=== PATIENT | female | born 1960 | race Caucasian/White ===

== ENCOUNTER → 2016-12-17 | Outpatient (CLI) | payer OTHER ==
[~2016-12-17] MED LIST: CHOL20009 PO; CLON1TAB3 PO; HYDR-5688 PO; SERT-234 PO
== END | disposition home or self-care (01) ==
LOC: C.CPL 12:25
PROVIDERS: ATTEND Otolaryngology
DX: Z01.810 Encounter for preprocedural cardiovascular examination (principal)

== ENCOUNTER → 2017-01-02 | Day surgery (SDC) | payer OTHER ==
[2016-12-18 08:02] VITALS: Ht 172.7 cm; Wt 85.5 kg
[~2017-01-02] VITALS: Ht 172.7 cm; Wt 85.5 kg
[~2017-01-02] MED LIST changes: -CLON1TAB3 PO; -HYDR-5688 PO; -SERT-234 PO
== END | disposition home or self-care (01) ==
LOC: EDSTATUS 07:00 → C.PAT 13:43
PROVIDERS: ATTEND Otolaryngology
DX: H70.12 Chronic mastoiditis, left ear (principal)

== ENCOUNTER → 2017-01-17 | Outpatient (CLI) | payer OTHER ==
--- NOTE | 2017-01-17 14:57 | DIAGNOSTIC IMAGING REPORT ---
CHEST 2 VIEWS ROUTINE CLINICAL HISTORY: Chest pain Shortness of breath chest pain COMPARISON STUDY: 10/01/2016 FINDINGS: Mild chronic interstitial prominence. No focal infiltrates. Cardiac silhouette is unremarkable.. Diaphragms smooth. Costophrenic angles are sharp. IMPRESSION: No acute process. Mild chronic interstitial change. Electronically signed by: Geovani Markham M.D. 01/17/2017 2:55 PM Dictated Date/Time: 01/17/2017 2:55 PM
== END | disposition home or self-care (01) ==
LOC: C.RADPV 14:37
PROVIDERS: ATTEND Family Medicine
DX: R07.9 Chest pain, unspecified (principal); R06.02 Shortness of breath

== ENCOUNTER → 2017-09-10 | Outpatient (CLI) | payer OTHER | END | disposition home or self-care (01) | LOC: C.PATHSPEC 17:29 | PROVIDERS: ATTEND Surgery | DX: L72.0 Epidermal cyst (principal); D22.5 Melanocytic nevi of trunk ==

== ENCOUNTER → 2017-12-12 | Outpatient (CLI) | payer OTHER ==
--- NOTE | 2017-12-12 14:42 | DIAGNOSTIC IMAGING REPORT ---
LUMBAR SPINE W/O CONTRAST HISTORY: Pain POST LAMINECTOMY SYNDROME,LUMBAR DIS HERNIATION... TECHNIQUE: Multiplanar multisequence MRI of the lumbar spine was performed without the use of contrast. COMPARISON: None. FINDINGS: For the purpose of the report the L5-S1 disc space will be located on axial image 23 of 25. Signal characteristics the vertebral bodies are unremarkable. Findings of mild degenerative disc changes throughout. This is considered moderate at L5-S1. L1-L2: Minimal broad-based disc bulge. Neuroforamina are patent bilaterally. L2-L3: No significant central canal or neural foraminal narrowing. L3-L4: Minimal disc bulge. Minimal impact anterior thecal sac. L4-L5: No significant central canal or neural foraminal narrowing. L5-S1: Prior posterior left hemilaminotomy. Postoperative deformity of the thecal sac. Left central extradural defect grade moderate impact upon the left S1 nerve root and left anterior thecal sac. Absence of prior studies or contrast enhancement this may relate to recurrent disc herniation or residual postoperative scar. Moderate narrowing of the neuroforamina bilaterally. IMPRESSION: 1. Operative changes consistent with a left posterior hemilaminotomy at L5-S1. 2. Left central extradural defect felt to be secondary to residual or recurrent disc herniation versus a component of post procedural scar. 3. This creates moderate deformity of the left anterior thecal sac, moderate narrowing of the left as well as right neuroforamina, and mild displacement left S1 nerve root. 4. Multilevel minimal disc bulges throughout remainder of the lumbar region of doubtful clinical significance. The above report was generated using voice recognition software. It may contain grammatical, syntax or spelling errors. Electronically signed by: Geovani Markham M.D. 12/12/2017 2:41 PM Dictated Date/Time: 12/12/2017 2:33 PM
== END | disposition home or self-care (01) ==
LOC: C.MRI 13:44
PROVIDERS: ATTEND Internal Medicine
DX: M96.1 Postlaminectomy syndrome, not elsewhere classified (principal); M51.16 Intervertebral disc disorders with radiculopathy, lumbar region; G89.4 Chronic pain syndrome; M48.061 Spinal stenosis, lumbar region without neurogenic claudication

== ENCOUNTER 2018-06-07 14:34 | Inpatient (IN) | payer OTHER ==
[~2018-06-07] VITALS: Ht 172.7 cm; Wt 81.0 kg
[2018-06-07] MEDS ORDERED: FENTANYL CITRATE INJ 50 MCG/1 ML 2 ML VIAL IV STA ×2 (15:12→17:22)
[2018-06-07] MEDS ORDERED: ONDANSETRON INJ 2 MG/ML 2 ML VIAL IV STA (15:12)
--- NOTE | 2018-06-07 15:29 | EMERGENCY ROOM VISIT NOTE ---
History First contact with patient: 15:05 Chief Complaint: CHEST PAIN Stated Complaint: CHEST PAIN Nursing Triage Summary: pt reports she was doing leg lifts and started having substernal chest pain radiating to bilat shoulder pain after ems arrived pt started vomiting x4 pt also reports back pain but knows she needs surgery with rods and screws. has not scheduled yet needs mother to take care of her. pt was given 324 asa po by ems . medic gave her 3 sprays of nitro that brought her pain down to 4 and 4mg zofran iv for nausea. pt reports feeling nauseated and sob History of Present Illness The patient is a 57 year old female who presents to the Emergency Room the ambulance with complaints of "chest pain". The patient notes that earlier today around 10:45 AM she was exercising at home by performing leg lifts. She notes that she felt short of breath while doing this and then went to lay down and began with substernal chest pain. She states that it is been persistent until she called 911 while in the ambulance was given nitroglycerin which decreased her pain. She was also given aspirin, and Zofran. She knows she vomited [address] here in the ambulance. She points to the substernal region of her chest as location of pain that she rates as a 5/10. She has never had this before like this. She does note a history however of anxiety. She denies any heart history, history of blood clots. No diabetes, cholesterol, hypertension. She notes that she does smoke. No recent leg swelling or long trips. Review of Systems A complete 10-point Review of Systems was discussed with the patient, with pertinent positives and negatives listed in the History of Present Illness. All remaining Review of Systems questions can be considered negative unless otherwise specified. Past Medical/Surgical History Medical Problems: (1) Fibromyalgia (2) NSTEMI (non-ST elevated myocardial infarction) Family History Cancer Diabetes mellitus Heart disease Hypertension Kidney disease Kidney stones Social History Smoking Status: Current Every Day Smoker Current/Historical Medications No Active Prescriptions or Reported Meds Physical Exam Vital Signs Date Time Temp Pulse Resp B/P (MAP) Pulse Ox O2 Delivery O2 Flow Rate FiO2 06/07/18 18:21 148/93 06/07/18 18:16 168/99 06/07/18 18:11 154/102 06/07/18 18:06 157/69 06/07/18 18:01 144/95 06/07/18 18:00 74 17 97 Room Air 06/07/18 17:56 141/93 06/07/18 17:51 145/95 06/07/18 17:46 139/99 06/07/18 17:41 144/82 06/07/18 17:39 56 18 147/88 98 Room Air 06/07/18 17:21 64 18 140/84 96 Room Air 06/07/18 17:08 64 18 167/87 99 Room Air 06/07/18 16:40 63 18 157/87 96 Room Air 06/07/18 16:24 65 27 97 06/07/18 16:09 57 06/07/18 16:09 58 17 143/77 98 06/07/18 14:50 100 Room Air 06/07/18 14:44 36.5 63 22 145/88 100 Room Air Physical Exam VITAL SIGNS - Vital signs and nursing notes were reviewed. Stable. Afebrile. GENERAL -57-year-old female appearing her stated age who is in no acute distress. She does appear to be working to breathe. Communicates well with provider and answers questions appropriately. SKIN - Without rashes. No meningeal or petechial rash. HEAD - NC/AT. EYES - PERRL with EOMI bilaterally. Sclera anicteric. EARS - No deformities of external structures noted on gross examination bilaterally. NOSE - Midline and without cyanosis. No epistaxis or purulent drainage noted. MOUTH/OROPHARYNX - Without perioral cyanosis. NECK - Neck with FROM. Supple to palpation. No lymphadenopathy noted. No nuchal rigidity. LUNGS - Chest wall symmetric without accessory muscle use, intercostals retractions, or central cyanosis. Normal vesicular breath sounds CTA B/L. No wheezes, rales, or rhonchi appreciated. CARDIAC - RRR with S1/S2. No murmur, rubs, or gallops appreciated. There is no reproducible tenderness to palpation of the anterior chest. ABDOMEN - Abdominal contour normal without pulsations or visible masses. BS normoactive all four quadrants. No tenderness, palpable masses, hepatosplenomegaly, or ascites noted. EXTREMITIES - No clubbing or peripheral cyanosis. No pretibial edema present. NEUROLOGIC - Cranial nerves II through XII grossly intact. Sensory intact to light touch throughout. PSYCH - A&Ox3 and cooperates fully with examiner. Pt is very pleasant and interacts well with examiner. Medical Decision & Procedures ER Provider Diagnostic Interpretation: CHEST ONE VIEW PORTABLE CLINICAL HISTORY: Substernal chest pain, dyspnea. COMPARISON STUDY: Chest radiograph January 17, 2017. FINDINGS: Lung volumes are at the lower limits of normal. There is no pneumothorax or pleural effusion. There is no evidence for pulmonary edema or pneumonia. Cardiac size is normal. Mediastinal contours are normal. IMPRESSION: No acute cardiopulmonary findings. Electronically signed by: Aaron Charles M.D. 06/07/2018 3:40 PM Dictated Date/Time: 06/07/2018 3:39 PM Laboratory Results 06/07/18 15:45 Red Blood Count 4.92, Mean Corpuscular Volume 89.4, Mean Corpuscular Hemoglobin 31.5, Mean Corpuscular Hemoglobin Concent 35.2, Mean Platelet Volume 11.1, Neutrophils (%) (Auto) 79.7, Lymphocytes (%) (Auto) 12.0, Monocytes (%) (Auto) 7.7, Eosinophils (%) (Auto) 0.2, Basophils (%) (Auto) 0.1, Neutrophils # (Auto) 11.52, Lymphocytes # (Auto) 1.73, Monocytes # (Auto) 1.11, Eosinophils # (Auto) 0.03, Basophils # (Auto) 0.01 06/07/18 15:45 Test 06/07/18 15:45 White Blood Count 14.45 K/uL (4.8-10.8) Red Blood Count 4.92 M/uL (4.2-5.4) Hemoglobin 15.5 g/dL (12.0-16.0) Hematocrit 44.0 % (37-47) Mean Corpuscular Volume 89.4 fL (80-100) Mean Corpuscular Hemoglobin 31.5 pg (25-34) Mean Corpuscular Hemoglobin Concent 35.2 g/dl (32-36) Platelet Count 263 K/uL (130-400) Mean Platelet Volume 11.1 fL (7.4-10.4) Neutrophils (%) (Auto) 79.7 % Lymphocytes (%) (Auto) 12.0 % Monocytes (%) (Auto) 7.7 % Eosinophils (%) (Auto) 0.2 % Basophils (%) (Auto) 0.1 % Neutrophils # (Auto) 11.52 K/uL (1.4-6.5) Lymphocytes # (Auto) 1.73 K/uL (1.2-3.4) Monocytes # (Auto) 1.11 K/uL (0.11-0.59) Eosinophils # (Auto) 0.03 K/uL (0-0.5) Basophils # (Auto) 0.01 K/uL (0-0.2) RDW Standard Deviation 39.9 fL (36.4-46.3) RDW Coefficient of Variation 12.4 % (11.5-14.5) Immature Granulocyte % (Auto) 0.3 % Immature Granulocyte # (Auto) 0.05 K/uL (0.00-0.02) Prothrombin Time 9.7 SECONDS (9.0-12.0) Prothromb Time International Ratio 0.9 (0.9-1.1) Anion Gap 15.0 mmol/L (3-11) Est Creatinine Clear Calc Drug Dose 75.7 ml/min Estimated GFR () 77.1 Estimated GFR (Non- 66.5 BUN/Creatinine Ratio 11.3 (10-20) Calcium Level 9.3 mg/dl (8.5-10.1) Magnesium Level 1.6 mg/dl (1.8-2.4) Total Bilirubin 0.9 mg/dl (0.2-1) Aspartate Amino Transf (AST/SGOT) 27 U/L (15-37) Alanine Aminotransferase (ALT/SGPT) 42 U/L (12-78) Alkaline Phosphatase 99 U/L (45-117) Troponin I 0.857 ng/ml (0-0.045) Total Protein 7.4 gm/dl (6.4-8.2) Albumin 4.0 gm/dl (3.4-5.0) Globulin 3.4 gm/dl (2.5-4.0) Albumin/Globulin Ratio 1.2 (0.9-2) Lipase 109 U/L (73-393) Thyroid Stimulating Hormone (TSH) 1.050 uIu/ml (0.300-4.500) Medications Administered Medications (Trade) Dose Ordered Sig/Vasile Route Start Time Stop Time Status Last Admin Dose Admin Fentanyl Citrate (Fentanyl Inj) 50 mcg NOW STAT IV 06/07/18 15:12 06/07/18 15:15 DC 06/07/18 15:27 50 MCG Ondansetron HCl (Zofran Inj) 4 mg NOW STAT IV 06/07/18 15:12 06/07/18 15:15 DC 06/07/18 15:27 4 MG Metoprolol Tartrate (Lopressor Tab) 25 mg NOW STAT PO 06/07/18 16:46 06/07/18 16:49 DC 06/07/18 17:07 25 MG Nitroglycerin (Nitrostat Tab) 0.4 mg Q5M STAT SL 06/07/18 16:46 06/07/18 16:49 DC 06/07/18 17:07 0.4 MG Heparin Sodium/ Dextrose (Heparin 25,000 Unit/500ml D5W) 25,000 unit STK-MED ONCE .ROUTE 06/07/18 17:12 06/07/18 17:13 DC 06/07/18 17:26 25,000 UNIT Heparin Sodium (Porcine) (Heparin Sq 5000 Unit/0.5ml) 5,000 unit STK-MED ONCE .ROUTE 06/07/18 17:12 06/07/18 17:13 DC 06/07/18 17:24 5,000 UNIT Fentanyl Citrate (Fentanyl Inj) 50 mcg NOW STAT IV 06/07/18 17:22 06/07/18 17:23 DC 06/07/18 17:38 50 MCG Nitroglycerin (Nitroglycerin 2% Oint) 1 inch Q6H EXT 06/07/18 18:45 07/07/18 18:44 06/08/18 00:16 1 IN[facility] Medical Decision Patient was seen and evaluated as above in room D9. Review was performed of nursing notes and vital signs. After obtaining a thorough history and physical examination the above work up was performed. She presents to us today with chest pain. She received 324 of aspirin in route as well as 3 sprays of nitro which significantly improved her pain. She also received Zofran as she became nauseous and began vomiting. Her presentation is concerning for that for ACS. At that EKG was obtained and reveals normal sinus rhythm. Upon my evaluation she did note increase of her chest pressure therefore obtain another stat EKG. This was unchanged. Still normal sinus rhythm. No evidence of MO on this examination. I did give her fentanyl. She was reevaluated and noted her pain was down to a 1 out of 10. I was then called emergently with her troponin value. I discussed this with the attending, and then I talked to cardiology at 4:45 PM. I spoke with Dr. Conti. He recommended 25 mg of metoprolol p.o., nitroglycerin, as well as heparinization. He did indicate that if she was not pain free he was to be notified as she may need intervention. Patient was reevaluated and her pain was still a 1/10. I discussed this with the attending physician. Decision was made to give fentanyl and then begin nitro drip if she was not pain-free. She was reevaluated and her pain was completely resolved. I did not call heart alert given the EKG not show a STEMI, and her chest pain was resolved. Case was discussed with the hospitalist who will further evaluate and manage. Please refer to further documentation regarding her stay. Patient was informed upon her findings and educated upon her visit. Case discussed with the attending physician. In the evaluation and treatment of this patient the following differential diagnoses were entertained: MO, PE, dissection, among others. Impression Primary Impression: NSTEMI (non-ST elevated myocardial infarction) Additional Impression: Hypokalemia Departure Information Dispostion Admitted as an inpatient Condition FAIR Prescriptions No Active Prescriptions or Reported Meds Referrals Breana Argueta M.D. (PCP) Patient Instructions My [facility] Problem Qualifiers
--- NOTE | 2018-06-07 15:41 | DIAGNOSTIC IMAGING REPORT ---
CHEST ONE VIEW PORTABLE CLINICAL HISTORY: Substernal chest pain, dyspnea. COMPARISON STUDY: Chest radiograph January 17, 2017. FINDINGS: Lung volumes are at the lower limits of normal. There is no pneumothorax or pleural effusion. There is no evidence for pulmonary edema or pneumonia. Cardiac size is normal. Mediastinal contours are normal. IMPRESSION: No acute cardiopulmonary findings. Electronically signed by: Aaron Charles M.D. 06/07/2018 3:40 PM Dictated Date/Time: 06/07/2018 3:39 PM
[2018-06-07 16:05] LABS: BASO % 0.1 %; BASO ABS # 0.01 K/uL (0-0.2); EOS % 0.2 %; EOS ABS # 0.03 K/uL (0-0.5); HEMOGLOBIN 15.5 g/dL (12.0-16.0); IG# 0.05 K/uL (0.00-0.02); LYMPH ABS # 1.73 K/uL (1.2-3.4); MEAN CELL VOLUME 89.4 fL (80-100); MEAN CORPUSCULAR HEMOGLOBIN 31.5 pg (25-34); MEAN CORPUSCULAR HGB CONC 35.2 g/dl (32-36); MEAN PLATELET VOLUME 11.1 fL (7.4-10.4); MONO % 7.7 %; MONO ABS # 1.11 K/uL (0.11-0.59); NEUT % 79.7 %; NEUT ABS # 11.52 K/uL (1.4-6.5); PLATELET COUNT 263 K/uL (130-400); RED CELL DISTRIBUTION WIDTH CV 12.4 % (11.5-14.5); RED CELL DISTRIBUTION WIDTH SD 39.9 fL (36.4-46.3); WHITE BLOOD COUNT 14.45 K/uL (4.8-10.8)
[2018-06-07 16:16] LABS: INR 0.9 (0.9-1.1); PTT PATIENT 25.2 SECONDS (21.0-31.0)
[2018-06-07 16:30] LABS: CALCIUM 9.3 mg/dl (8.5-10.1); CREATININE 0.95 mg/dl (0.60-1.20); POTASSIUM 3.4 mmol/L (3.5-5.1); TOTAL PROTEIN 7.4 gm/dl (6.4-8.2)
[2018-06-07] MEDS ORDERED: METOPROLOL TARTRATE 25 MG TAB PO STA (16:46)
[2018-06-07] MEDS ORDERED: NITROGLYCERIN 0.4 MG SL PER TAB CHARGE SL STA (16:46)
[2018-06-07] MEDS ORDERED: HEPARIN 25000 UNIT/500 ML D5W ONE (17:12)
[2018-06-07] MEDS ORDERED: HEPARIN SOD 5000 UNIT/0.5 ML CARP ONE (17:12)
--- NOTE | 2018-06-07 17:47 | EMERGENCY ROOM VISIT NOTE ---
ED Visit Note First contact with patient: 15:05 I did evaluate and examine this patient myself. I did guide management for the patient. I agree with the PA's assessment as discussed. Please see the PAs dictation for further details. I did independently review the x-rays, twelve- lead EKG and blood work. Patient is presenting with chest pressure starting after exerting herself. She was given nitroglycerin in the ambulance with help her pain but she had continued pain here. She was given nitroglycerin and fentanyl IV after which her pain completely resolved. Her twelve-lead EKGs do not show evidence of STEMI. Her troponin, however, is elevated. The case was discussed with cardiology who recommended heparinization. The patient was placed on IV heparin and admitted to the hospital.
[2018-06-07] MEDS ORDERED: MAGNESIUM HYDROXIDE SUSP 30 ML UDC PO PRN (18:45)
[2018-06-07] MEDS ORDERED: NITROGLYCERIN 0.4 MG SL PER TAB CHARGE SL PRN (18:45)
[2018-06-07] MEDS ORDERED: ACETAMINOPHEN 325 MG TAB PO PRN (18:45)
[2018-06-07] MEDS ORDERED: POLYETHYLENE (MIRALAX) 17 GM PACK PO PRN (18:45)
[2018-06-07] MEDS ORDERED: ONDANSETRON INJ 2 MG/ML 2 ML VIAL IV PRN (18:45)
[2018-06-07] MEDS ORDERED: ALUMINUM/MAGNESIUM/SIMETH (MAALOX MAX) 30 ML UDC PO PRN (18:45)
[2018-06-07] MEDS ORDERED: MoRPHine SULFATE 4 MG/ML 1 ML CARP\\VIAL IV PRN (19:00)
[2018-06-07] MEDS ORDERED: POTASSIUM CHLR 20 MEQ / WTR 20 MEQ IV SCH (19:00)
[2018-06-07] MEDS ORDERED: POTASSIUM CHLORIDE 10 MEQ / 100ML WTR ONE (19:29)
[2018-06-07] MEDS: NITROGLYCERIN 2% OINTMENT 30GM TUBE EXT SCH (19:35)
--- NOTE | 2018-06-07 19:38 | Family Medicine Progress Note ---
Progress Note Date of Service Jun 07, 2018. Assessment and Plan For full attending attestation and plan, see resident H&P note from day of admission. In brief - 57 y/o female h/o cigarette smoking, fibromyalgia and chronic back pain with upcoming surgery presents for ~9 hours of left central back pain accompanied by diaphoresis and SOB following a brief exercise regimen (first in a while). Pain resolved with nitro, fentanyl and heparin drip and has not recurred. Endorses quitting smoking TODAY with hospital admission. No similar history, recent ASA use, palpitations etc. On examination, S1/S2 nl RRR no MCG. No peripheral edema appreciated. Lungs CTAB. CNII-XII grossly intact. No rashes, lesions. No reproducible MSK chest pain. Elevated troponin to ~0.8 with K 3.4 and Mg 1.6 Admit to telemetry for NSTEMI with cardiology consultation and heparin drip. Replete electrolytes to K > 4 and Mg > 2. Trend troponins. Repeat EKG in AM. Add statin, BBlocker, morphine, ASA. For likely cath v. noninvasive testing in AM. Can offer NRT if needed for smoking cessation. Call cardiology with recrudescent pain.
[2018-06-07] MEDS ORDERED: IV FLUIDS COMPLETED PRN (19:45)
[2018-06-07] MEDS ORDERED: POTASSIUM CHLR 10 MEQ / WTR 100 ML IV SCH (19:45)
--- NOTE | 2018-06-07 20:10 | History and Physical ---
History & Physical Date & Time of Service: Jun 07, 2018 at 19:27 Chief Complaint: Chest Pain Primary Care Physician: Breana Argueta M.D. History of Present Illness Source: patient Ms. Chelsea Sheppard is a 57 year old woman with a 40+ pack year smoking history and a PMH significant for back pain who presents today by ambulance to the [facility] Emergency room for a crushing substernal chest pain that came on gradually as she did leg lift exercises this morning at around 11 am. The pain was just left of her sternum and did not radiate. She said resting or positional changes did not make it better and it just got progressively worse. Ms Sheppard felt this chest pain start to come on and become 9/10, noted that she was getting short of breath, nauseous and sweaty and stopped exercising and tried to wait it out. She has had a previous episode attributed to an anxiety attack that caused her to present to the emergency department but she says that this episode feels completely different from that one. She waited for an hour with no abatement of symptoms and then decided to call 911 and was brought in by ambulance. Nitroglycerin given on the way to the hospital greatly reduced her pain. In the emergency department she was found to have an elevated troponin at 0.8 and had 2 ECG's that were not indicative of ischemic change. She was treated with heparin, nitroglycerin, fentanyl, and metoprolol. When I had the opportunity to talk with miss Sheppard, she endorsed no chest pain or shortness of breath and said she was feeling at her baseline before this morning. Past Medical/Surgical History Medical Problems: (1) Fibromyalgia (2) Flank pain (3) Left flank pain (4) NSTEMI (non-ST elevated myocardial infarction) Family History Cancer Diabetes mellitus Hypertension Kidney disease Kidney stones Social History Smoking Status: Current Every Day Smoker Smokeless Tobacco Use: No Occupational Status: disabled Allergies Coded Allergies: Gabapentin (Verified Allergy, Unknown, VERTIGO, 06/07/18) Pregabalin (Verified Allergy, Unknown, "FELT LIKE A ZOMBIE", 06/07/18) Tramadol (Verified Allergy, Unknown, HIVES, 06/07/18) Home Medications No Active Prescriptions or Reported Meds Review of Systems Constitutional: + sweats, + weight loss (20 pounds recently trying to alter diet), No fever, No chills, No weakness, No fatigue ENT: + hearing loss (Chronic hearing impairment) Respiratory: + shortness of breath (resolved), + dyspnea at rest (resolved), No cough, No sputum Cardiovascular: + chest pain (Resolved), No orthopnea, No palpitations Abdomen: + nausea (resolved), No pain Musculoskeletal: + problem reported (Back Pain upcoming surgery) Genitourinary - Female: No dysuria, No urinary frequency, No urinary urgency, No urinary incontinence Neurologic: + vertigo, No memory loss, No weakness, No numbness/tingling Psychiatric: + anxiety (No diagnosis, but was told her previous chest pain presentation was likely due to anxiety) Physical Exam Vital Signs Date Time Temp Pulse Resp B/P (MAP) Pulse Ox O2 Delivery O2 Flow Rate FiO2 06/07/18 18:21 148/93 06/07/18 18:16 168/99 06/07/18 18:11 154/102 06/07/18 18:06 157/69 06/07/18 18:01 144/95 06/07/18 18:00 74 17 97 Room Air 06/07/18 17:56 141/93 06/07/18 17:51 145/95 06/07/18 17:46 139/99 06/07/18 17:41 144/82 06/07/18 17:39 56 18 147/88 98 Room Air 06/07/18 17:21 64 18 140/84 96 Room Air 06/07/18 17:08 64 18 167/87 99 Room Air 06/07/18 16:40 63 18 157/87 96 Room Air 06/07/18 16:24 65 27 97 06/07/18 16:09 57 06/07/18 16:09 58 17 143/77 98 06/07/18 14:50 100 Room Air 06/07/18 14:44 36.5 63 22 145/88 100 Room Air General Appearance: WD/WN, no apparent distress Eyes: normal inspection, PERRL, EOMI Neck: no JVD, no carotid bruits Respiratory/Chest: chest non-tender, lungs clear, normal breath sounds, no respiratory distress, no accessory muscle use Cardiovascular: regular rate, rhythm, no edema, no gallop, no JVD, no murmur, normal peripheral pulses Abdomen/GI: normal bowel sounds, non tender, soft, no organomegaly Neurologic/Psych: cloth examiner hand II-XII nml as tested, no motor/sensory deficits, alert, normal mood/affect, normal reflexes, oriented x 3 Diagnostics Laboratory Results Results Past 24 Hours Test 06/07/18 15:45 Range/Units White Blood Count 14.45 4.8-10.8 K/uL Red Blood Count 4.92 4.2-5.4 M/uL Hemoglobin 15.5 12.0-16.0 g/dL Hematocrit 44.0 37-47 % Mean Corpuscular Volume 89.4 80-100 fL Mean Corpuscular Hemoglobin 31.5 25-34 pg Mean Corpuscular Hemoglobin Concent 35.2 32-36 g/dl Platelet Count 263 130-400 K/uL Mean Platelet Volume 11.1 7.4-10.4 fL Neutrophils (%) (Auto) 79.7 % Lymphocytes (%) (Auto) 12.0 % Monocytes (%) (Auto) 7.7 % Eosinophils (%) (Auto) 0.2 % Basophils (%) (Auto) 0.1 % Neutrophils # (Auto) 11.52 1.4-6.5 K/uL Lymphocytes # (Auto) 1.73 1.2-3.4 K/uL Monocytes # (Auto) 1.11 0.11-0.59 K/uL Eosinophils # (Auto) 0.03 0-0.5 K/uL Basophils # (Auto) 0.01 0-0.2 K/uL RDW Standard Deviation 39.9 36.4-46.3 fL RDW Coefficient of Variation 12.4 11.5-14.5 % Immature Granulocyte % (Auto) 0.3 % Immature Granulocyte # (Auto) 0.05 0.00-0.02 K/uL Prothrombin Time 9.7 9.0-12.0 SECONDS Prothromb Time International Ratio 0.9 0.9-1.1 Activated Partial Thromboplast Time 25.2 21.0-31.0 SECONDS Partial Thromboplastin Ratio 1.0 Sodium Level 142 136-145 mmol/L Potassium Level 3.4 3.5-5.1 mmol/L Chloride Level 108 98-107 mmol/L Carbon Dioxide Level 19 21-32 mmol/L Anion Gap 15.0 3-11 mmol/L Blood Urea Nitrogen 11 7-18 mg/dl Creatinine 0.95 0.60-1.20 mg/dl Est Creatinine Clear Calc Drug Dose 75.7 ml/min Estimated GFR () 77.1 Estimated GFR (Non- 66.5 BUN/Creatinine Ratio 11.3 10-20 Random Glucose 104 70-99 mg/dl Calcium Level 9.3 8.5-10.1 mg/dl Magnesium Level 1.6 1.8-2.4 mg/dl Total Bilirubin 0.9 0.2-1 mg/dl Aspartate Amino Transf (AST/SGOT) 27 15-37 U/L Alanine Aminotransferase (ALT/SGPT) 42 12-78 U/L Alkaline Phosphatase 99 45-117 U/L Troponin I 0.857 0-0.045 ng/ml Total Protein 7.4 6.4-8.2 gm/dl Albumin 4.0 3.4-5.0 gm/dl Globulin 3.4 2.5-4.0 gm/dl Albumin/Globulin Ratio 1.2 0.9-2 Lipase 109 73-393 U/L Thyroid Stimulating Hormone (TSH) 1.050 0.300-4.500 uIu/ml Diagnostic Radiology Chest X Ray CXR normal EKG No evidence of ischemic changes Impression Assessment and Plan Chelsea Sheppard is a 57 year old woman here for Chest pain with positive troponin and negative ECG NSTEMI - Started on morphine, nitrates, aspirin, lopressor, atorvastatin - heparin continued from ED - Consider adding Hood inhibitor tomorrow - Admitted to telemetry - Trending troponins .8 at 3 next draw at 2300 - If symptoms return, patient will be urgently taken to record label intern Hypokalemia - 3.4 on admission - 20 mEq ordered x2 - Will recheck potassium in the morning and adjust as needed Hypomagnesemia - 1.6 - Replacing with mag sulfate 2 mg - Upping to 4 mg if tolerated - Will recheck in am Consulted Cardiology - Anticipate Stress test or catheterization tomorrow - Patient currently NPO DVT PPx - Heparinized Resuscitation Status VTE Prophylaxis Will order VTE Prophylaxis: No Reason for no VTE drug order: Treatment not indicated Reason no Mechanical VTE Order: Treatment not indicated Note Total Time: Critical Care 30 - 74 minutes Resident Tracking Resident Involvement: Resident Care Provided Care Provided: Adult Hospital Medicine Assessment/Plan Resident Physician Supervision Note: I was present with Dr. Jones during the history and exam. I discussed the case with the resident and agree with the findings and plan as documented in the note. Any exceptions or clarifications are listed here: Pt seen and examined at bedside. Chest pain free at time of examination following nitroglycerin, fentanyl, heparin. States that she's quitting smoking today, and that she quit cold turkey with her so she can do it again. On examination, S1/S2 nl RRR no MCG, no pedal edema. CTAB. Abd NT/ND, BS+ve. Reviewed lab studies, imaging and EKG as noted above. ED d/w cardiology NSTEMI - trend troponins, repeat EKG, morphine, nitroglycerin, heparin drip, ASA , statin, BBlocker. F/E/N - correct Mg/K to 2/4 respectively. Tobacco use - counseled for quitting and offered NRT if needed, defers for now h/o chronic pain (back, pending surgery) and fibromyalgia - no home pain regimen per patient, monitor for comfort
[2018-06-07 20:30] VITALS: BP 146/83; PULSE 58; TEMP 36.8; O2SAT 100; Ht 172.7 cm; Wt 81.0 kg
[2018-06-07] MEDS ORDERED: NURSING VERBAL MED ORDER ONE (21:00)
[2018-06-07] MEDS ORDERED: POTASSIUM CHLORIDE 20 MEQ TABCR PO ONE (22:00)
[2018-06-07] MEDS: HEPARIN 25,000 UNIT/500ML D5W 500 ML IV SCH (22:11)
[2018-06-07 23:04] VITALS: BP 138/83; PULSE 66; TEMP 36.8; O2SAT 97
[2018-06-07] MEDS: MAGNESIUM SULFATE 1GM / D5W 100 ML IV SCH (23:13)
[2018-06-07] MEDS: METOPROLOL TARTRATE 25 MG TAB PO SCH (23:14)
[2018-06-07 23:42] LABS: PTT PATIENT 56.5 SECONDS (21.0-31.0)
[2018-06-08] VITALS (11 sets, daily range): BP systolic 116–159; BP diastolic 61–93; PULSE 58–84; TEMP 36.8–37; O2SAT 96–99
[2018-06-08] MEDS: NITROGLYCERIN 2% OINTMENT 30GM TUBE EXT SCH ×3 (00:16→12:49)
[2018-06-08 05:38] LABS: PTT PATIENT 47.6 SECONDS (21.0-31.0)
[2018-06-08 05:47] LABS: CALCIUM 8.4 mg/dl (8.5-10.1); CREATININE 0.84 mg/dl (0.60-1.20); POTASSIUM 3.9 mmol/L (3.5-5.1)
--- NOTE | 2018-06-08 06:43 | Family Medicine Progress Note ---
Progress Note Date of Service Jun 08, 2018. Resident Tracking Resident Involvement: Resident Care Provided Care Provided: Adult Hospital Medicine
[2018-06-08] MEDS: METOPROLOL TARTRATE 25 MG TAB PO SCH (08:15)
[2018-06-08] MEDS: MAGNESIUM SULFATE 1GM / D5W 100 ML IV SCH (08:28)
[2018-06-08] MEDS ORDERED: NURSING VERBAL MED ORDER ONE (08:30)
[2018-06-08 08:34] LABS: BASO % 0.2 %; BASO ABS # 0.03 K/uL (0-0.2); EOS % 1.1 %; EOS ABS # 0.14 K/uL (0-0.5); HEMATOCRIT 43.3 % (37-47); IG# 0.04 K/uL (0.00-0.02); LYMPH % 28.7 %; MEAN CELL VOLUME 90.6 fL (80-100); MEAN CORPUSCULAR HEMOGLOBIN 31.4 pg (25-34); MEAN CORPUSCULAR HGB CONC 34.6 g/dl (32-36); MEAN PLATELET VOLUME 11.2 fL (7.4-10.4); MONO % 8.3 %; NEUT % 61.4 %; NEUT ABS # 8.11 K/uL (1.4-6.5); PLATELET COUNT 231 K/uL (130-400); RED CELL DISTRIBUTION WIDTH CV 12.6 % (11.5-14.5); RED CELL DISTRIBUTION WIDTH SD 41.6 fL (36.4-46.3); WHITE BLOOD COUNT 13.22 K/uL (4.8-10.8)
[2018-06-08] MEDS ORDERED: ATORVASTATIN 40 MG TAB PO SCH (09:00)
[2018-06-08] MEDS ORDERED: ASPIRIN 325 MG ECTAB PO SCH (09:00)
--- NOTE | 2018-06-08 12:48 | CARDIOLOGY CONSULTATION REPORT ---
DATE OF CONSULTATION: 06/08/2018 REASON FOR CONSULTATION: NSTEMI. HISTORY OF PRESENT ILLNESS: Ms. Sheppard is a 57-year-old white with a 70-[id number]-[id number] history of smoking, fibromyalgia, lumbar spinal stenosis, anxiety and a history of abnormal EKGs (history of slightly prolonged QT interval and nonspecific T wave abnormalities) who presented acutely to [facility] on 06/07/2018 after the onset of substernal chest pain with associated nausea, shortness of breath, and diaphoresis. These symptoms came on at approximately 10:45 a.m. while she was doing leg lift exercises, so she stopped exercising in hope that her discomfort would improve, unfortunately it did not get better. It persisted for the ensuing 30-60 minutes, and not prompted her to call 911. While in the ambulance, she received sublingual nitroglycerin which reduced her discomfort. She still had some mild discomfort in the Emergency Room, but that quickly dissipated with ongoing medications. Her initial troponin I was elevated at 0.857 and subsequently trended up to 1.130 ng/mL. Total cholesterol on admission was 151 mg/dL with an HDL of 44 mg/dL and LDL of 74 mg/dL (these numbers may be falsely diminished due to her acute cardiac event). Her EKGs thus far have shown sinus rhythm with slightly prolonged QT interval (479 milliseconds corrected QT interval), and nonspecific T wave abnormalities. No ST segment changes have been noted. She appears to have had an NSTEMI. At the current time, she is pain free. She has not had any further chest discomfort since being admitted. Patient further denies any orthopnea, PND, shortness of breath, palpitations, syncope, or near-syncope. Patient denies any prior cardiac history other than the abnormal EKGs. She had a negative dobutamine stress echocardiogram in March 2017 which was ordered for an abnormal EKG, atypical chest pain, and her cardiac risk factors prior to undergoing breast reduction surgery. MEDICATIONS: 1. Aspirin 325 mg daily. 2. Lipitor 80 mg daily. 3. Lopressor 25 mg b.i.d. 4. Heparin drip. 5. Morphine sulfate 4 mg IV q. 4 hours p.r.n. for pain. 6. Tylenol 650 mg p.o. q. 4 hours p.r.n. for pain or fever. 7. Maalox Max p.r.n. 8. Milk of magnesia p.r.n. 9. Zofran 4 mg IV q. 6 hours p.r.n. for nausea. 10. Sublingual nitroglycerin as needed. 11. Nitroglycerin ointment 2% apply 1 inch to chest wall q. 6 hours. 12. MiraLax 17 g daily as needed for constipation. ALLERGIES: 1. GABAPENTIN. 2. PREGABALIN. 3. TRAMADOL. PAST MEDICAL HISTORY: 1. Anxiety. 2. History of bronchitis. 3. History of atypical chest pain. 4. Jragu-fvyk-gcky history of smoking. 5. History of depression. 6. Fibromyalgia. 7. GERD. 8. Elevated triglycerides. 9. Presumed dyslipidemia. 10. Status post breast reduction surgery. 11. Chronically abnormal EKG. 12. History of plantar fasciitis. 13. Restless leg syndrome. 14. TMJ dysfunction. 15. History of tubular adenoma of the colon. 16. History of hypothyroidism. 17. History of lumbar spinal surgery. 18. History of ear surgery for an abnormal growth. SOCIAL HISTORY: Patient has a [id number] history of smoking, but she quit smoking as of yesterday with this event. She is . Unable to exercise routinely due to a lumbar radiculopathy, but was doing leg lifts when her symptoms occurred. She did not use alcohol or illicit drugs. FAMILY HISTORY: Significant for cancer, diabetes mellitus, heart disease at an advanced age, hypertension, and kidney disease. PHYSICAL EXAMINATION: VITAL SIGNS: Temperature is 37 degrees Celsius, pulse is 84 and regular, respiratory rate is 16 and unlabored, blood pressure is 116/61, SpO2 is 96% on room air. GENERAL: Patient is in no acute distress. HEENT: Head is atraumatic, normocephalic. EOMs intact. Sclerae anicteric. Face is symmetric. No perioral cyanosis. NECK: Without JVD. Jugular venous pressure is at the level of clavicle sitting upright. Carotid upstrokes are +2 bilaterally without bruits. CHEST AND LUNGS: With mildly diminished breath sounds throughout, otherwise clear. No wheezes, rales, or rhonchi. CARDIOVASCULAR: S1 and S2 are regular without obvious murmur, gallop or rub. PMI is nondisplaced. No lifts, heaves or thrills. No abdominal aortic, renal, or femoral bruits. ABDOMEN: Bowel sounds present. No masses, organomegaly, or tenderness. EXTREMITIES: No clubbing or cyanosis. +2 dorsalis pedis, posterior tibial, and radial pulses bilaterally. Fredrick's test is positive for both radial and ulnar arterial reflow in the right upper extremity. NEUROLOGIC: Patient is awake, alert and interactive. Answers questions appropriately. Speech is clear. Gait pattern was not assessed. Normal movement in all 4 extremities. LABORATORIES: Sodium 142 mmol/L, potassium 3.9 mmol/L. BUN is 11 mg/dL. Creatinine 0.84 mg/dL. Magnesium level 2.1 mg/dL. LFTs unremarkable. Troponin I 1.130 and 0.857 ng/mL. Cholesterol numbers as mentioned above. TSH is normal at 1.050 uIUs/mL. Lipase level is normal 109 units/L. White blood cell count is 13.22 with a hemoglobin of 15.0 and hematocrit of 43.3%, platelet count 231,000. Telemetry monitoring is largely unremarkable. ASSESSMENT: 1. Acute NSTEMI. 2. Nicotine dependence. 3. Dyslipidemia. 4. History of hypertriglyceridemia. 5. Depression/anxiety. PLAN: 1. Patient is a 57-year-old smoker who presented with an acute NSTEMI. She is currently chest pain free. 2. Patient has been n.p.o. today. 3. Continue long-term beta christine -- convert to Toprol XL 50 mg daily at discharge. 4. Continue high-dose statin, Lipitor 80 mg daily. 5. Continue Aspirin. 6. Consider adding an JONATAN inhibitor. 7. Continue topical nitrates for the time being as well as heparin drip. 8. Cardiac Catheterization is indicated. She will be taken to the chemical laboratory tester later today with Dr. Sharpe to undergo [facility] / Coronary Angiography +/- PCI. 9. I had a long discussion with the patient regarding the risks, benefits, and potential outcomes of cardiac catheterization. She agrees to proceed. 10. I have also ordered an echocardiogram to evaluate for any regional wall motion abnormalities. 11. We will continue to follow closely throughout this hospitalization. DONTE
[2018-06-08] MEDS ORDERED: MIDAZOLAM HCL 1 MG/ML 2ML VIAL ONE (13:21)
[2018-06-08] MEDS ORDERED: FENTANYL CITRATE INJ 50 MCG/1 ML 2 ML VIAL ONE (13:21)
[2018-06-08] MEDS ORDERED: HEPARIN SOD (PORCINE) 1000 UNIT/ML 10 ML VIAL ONE (13:22)
[2018-06-08] MEDS ORDERED: NiCARDipine HCL INJ 2.5 MG/ML 10 ML AMP ONE (13:22)
[2018-06-08] MEDS ORDERED: ONDANSETRON INJ 2 MG/ML 2 ML VIAL ONE (13:23)
[2018-06-08] MEDS ORDERED: NITROGLYCERIN/D5W 100MCG/ML 20ML SYR ONE (13:23)
[2018-06-08] MEDS ORDERED: PERFLUTREN LIPID MICROSPHERE (DEFINITY) IV ONE (14:05)
--- NOTE | 2018-06-08 14:21 | Pre Sedation Assessment ---
Pre Sedation Assessment General Date of Sedation: Jun 08, 2018. Vital Signs Past 12 Hours Date Time Temp Pulse Resp B/P (MAP) Pulse Ox O2 Delivery O2 Flow Rate FiO2 06/08/18 11:40 36.8 58 18 133/81 (98) 96 06/08/18 09:10 Room Air 06/08/18 08:00 37.0 84 18 116/61 (79) 96 06/08/18 04:32 37.0 78 18 142/79 (100) 98 Room Air Review Cardiovascular: regular rate, rhythm, no edema Lungs: chest non-tender, lungs clear Pre-Sedation Airway Assessment Smoking Status: Current Every Day Smoker Hx of Sleep Apnea: No Hx of difficult intubation: No Short Thick Neck: No Thyro-mental Distance: > 3 Finger Breadths Oral Cavity: Dentures Mallampati Classification: Class III ASA Classification: Class III Procedure Planning Contraindications for Sedation: None Current Medications Reviewed: Yes Notes The planned sedation has been discussed with the patient. Informed Consent was obtained. I have identified the patient, determined the appropriateness of sedation and have assessed the patient immediately prior to the procedure. All medicine(s) and interventions are by my order.
--- NOTE | 2018-06-08 14:21 | Post Sedation Assessment ---
Post Sedation Assessment General Date of Sedation Jun 08, 2018. Vital Signs: Vital Signs Past 12 Hours Date Time Temp Pulse Resp B/P (MAP) Pulse Ox O2 Delivery O2 Flow Rate FiO2 06/08/18 11:40 36.8 58 18 133/81 (98) 96 06/08/18 09:10 Room Air 06/08/18 08:00 37.0 84 18 116/61 (79) 96 06/08/18 04:32 37.0 78 18 142/79 (100) 98 Room Air Post Procedure Recovery Score Activity: (2) Moves 4 extremities * Respiration: (2) Deep breath/cough Circulation: (2) +/-20% PreAnes Value Consciousness: (2) Fully Awake Oxygen Saturation: (2) > 92% On Room Air Post Anesthesia Score: 10 Discharge Sedation Level of Care: Fast Track Phase II Post Sedation Plan On clinical assessment, the patient appears to have tolerated the sedation without complications. Patient is recovering as anticipated. Patient will continue to be monitored by nursing and may be discharged when sedation discharge criteria are met per below protocol. Upon Completions of procedure and additional 15 minutes continue every 5 minute vital signs and the P.A.R. score; then discharge to a Phase I or Fast Track to Phase II per the following guidelines: * Discharge Patient to appropriate Phase II area if PAR is 8 or greater or return to pre- procedure baseline. The post - procedure orders will be as directed. * If PAR score is less than 8 or not return to pre-procedure baseline then patient will follow Phase I monitoring till PAR is reached for Phase II. The Phase I may be done in procedure room or may call to secure a Phase I area. * If naloxone or flumazenil are used for reversal, hold in Phase I for an additional 60 -120 minutes before discharge to Phase II. Please call the Sedation Physician to re-evaluate and complete post-note for discharge to Phase II area. Do NOT discharge from procedure sedation or Phase 1 until post- sedation evaluation note is complete by procedure /sedation MD Sedation Discharge Instructions to be given to the patient at discharge to home.
--- NOTE | 2018-06-08 14:36 | Cardiac Catheterization ---
Procedure Note Procedure Date Jun 08, 2018. 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 Circumflex - Large vessel, angiographically normal. RCA - Dominant, angiographically normal. LVEDP - 13 LVEF - 45-50%, inferior, mid wall hypokinesis. Arterial Closure: TR band Summary: 1. Mild non-obstructive coronary artery disease - 20-30% proximal/mid LAD disease 2. Normal intracardiac filling pressure 3. Mild LV dysfunction with mid segment wall motion abnormality Recommendations: Mild troponin elevation seems to be consistent with Takotsubo's mid-ventricular variant. Less likely secondary to coronary vasospasm. Continued ASCVD risk factor modification including smoking cessation Home on beta-christine, JONATAN Hemodynamics Rest Ao: 132/71/98 Final Ao: 145/72/104 LV: 124/13 Recommendations Medical therapy and/or Counseling Specimens None Radiation Exposure (mGy) 1224 Contrast (mls) 90 Fluids (cc crystalloids) 75 Drains none Anesthesia moderate Procedural Complication(s) None Disposition PCU ACC Data Cardiac Status Clinical evaluation leading to the procedure CAD Presntation: Non STEMI Anginal Classification: CCS IV Heart Failure: No, NYHA Class: CCS I Cardiogenic Shock w/in 24Hrs: No Cardiac Arrest w/in 24Hrs: No Imaging studies past 6 months: Yes Stress studies past 6 months: No Closure Device Percutaneous Entry Location: Radial Closure Device: Radial Band Recommendations: Medical therapy and/or Counseling Intraprocedure Events Significant Dissection: No Perforation: No
--- NOTE | 2018-06-08 15:57 | Discharge Instructions ---
Discharge Instructions Date of Service Jun 08, 2018. Admission Reason for Admission: Nstemi (Non-St Elevated Myocardial Infarction) Discharge Discharge Diagnosis / Problem: Takotsubo Cardiomyopathy Discharge Goals Goal(s): Decrease discomfort, Improve nutritional status, Learn about illness, Therapeutic intervention, Prevent Disease Progression Activity Recommendations Activity Limitations: per Instructions/Follow-up section Lifting Limitations: gradually increase as tolerated Exercise/Sports Limitations: gradually increase as tolerated May Resume Sexual Activity: when tolerated Shower/Bathe: no limitations Driving or Machine Use: no limitations . Instructions / Follow-Up Instructions / Follow-Up You were admitted to the hospital for a heart attack which did not require stents to be placed. You have been started on four new medications. Please take Aspirin 81mg once daily, Lisinopril 5mg once daily, metoprolol XL 25mg once daily, and atorvastatin 40mg once daily. A followup appointment has been made with your primary care provider Dr. Breana Argueta for Friday2017 at 10:00am. They should call to confirm this appointment. If you do not receive a call or need to reschedule this appointment please call [phone]. You are being scheduled for a followup with cardiology. If you do not receive a call to confirm your appointment, or need to reschedule please call their office at [phone]. If you develop shortness of breath, chest pain, or difficulty breathing please call your PCP at [phone] or go to the call 911 if you are concerned. If you develop chest plain please DO NOT drive yourself to the emergency department , call 911 if you are concerned. You have been started on new medications. If you develop shortness of breath, swelling, rash, difficulty breathing, chest pain, dizziness, or lightheadedness please call your primary care doctor at [phone] or go to the emergency department if you are concerned. Home Care: * Take your medications exactly as directed. Don't skip doses. * Remember that recovery after a heart attack takes time. Plan to rest for at lease 4-8 weeks while you recover. Then return to normal activity when your doctor says it's okay. * Ask your doctor about joining a heart rehabilitation program. * Tell your doctor if you are feeling depressed. Feelings of sadness are common after a heart attack, but it is important that you speak to someone if you are feeling overwhelmed by these feelings. * If you are having chest pain, call 911 for an ambulance. Do NOT drive yourself to the hospital. * Ask your family members to learn CPR. * Learn to take your own blood pressure and pulse. Keep a record of your results. Ask your doctor when you should seek emergency medical attention. He or she will tell you which blood pressure reading is dangerous. Lifestyle Changes: * Maintain a healthy weight. Get help to lose any extra pounds. * Cut back on salt. * Limit canned, dried, packaged, and fast foods. * Don't add salt to your food. * Season foods with herbs instead of salt when you cook. * Break the smoking habit. Enroll in a stop-smoking program to improve your chances of success. * Limit fatty foods. * Ask your doctor about having your lipid levels checked regularly. * Build up your activity according to your doctor's recommendation. * Ask your doctor when it's okay to resume sexual activity. * Try to manage stress. Current Hospital Diet Patient's current hospital diet: AHA Diet (Heart Healthy) Discharge Diet Recommended Diet: AHA Diet (Heart Healthy) Procedures Procedures Performed: CHEST ONE VIEW PORTABLE CLINICAL HISTORY: Substernal chest pain, dyspnea. COMPARISON STUDY: Chest radiograph January 17, 2017. FINDINGS: Lung volumes are at the lower limits of normal. There is no pneumothorax or pleural effusion. There is no evidence for pulmonary edema or pneumonia. Cardiac size is normal. Mediastinal contours are normal. IMPRESSION: No acute cardiopulmonary findings. Electronically signed by: Aaron Charles M.D. 06/07/2018 3:40 PM Dictated Date/Time: 06/07/2018 3:39 PM Pending Studies Studies pending at discharge: no Laboratory Results Lipid Panel Test 06/08/18 04:50 Range/Units Triglycerides Level 164 H 0-150 mg/dl Cholesterol Level 151 0-200 mg/dl HDL Cholesterol 44 mg/dl Cholesterol/HDL Ratio 3.4 LDL Cholesterol, Calculated 74 mg/dl Medical Emergencies . Who to Call and When: Medical Emergencies: If at any time you feel your situation is an emergency, please call 911 immediately. Call 911 immediately or go to your nearest Emergency Room if you experience any of the following: Warning Signs and Symptoms of a Heart Attack * Chest pain that is not relieved by medication * Shortness of breath . Non-Emergent Contact Non-Emergency issues call your: Primary Care Provider Contact Number: [phone] . Past History Medical & Surgical History: (1) Takotsubo cardiomyopathy (2) NSTEMI (non-ST elevated myocardial infarction) . "Provider Documentation" section prepared by J Luis Malik. . AMI Core Measures Reason no ASA as I/P: Treatment provided - N/A Reason no ASA at D/C: Treatment provided - N/A Reason no statin as I/P: Treatment provided - N/A Reason no statin at D/C: Treatment provided - N/A
--- NOTE | 2018-06-08 16:11 | ECHOCARDIOGRAM REPORT ---
*NOTICE TO RECEIVING CONSTITUTION PARTY AGENCY This information is strictly Confidential and protected under [place] law. [place] law prohibits you from making any further disclosure of this information unless further disclosure is expressly permitted by the written consent of the person to whom it pertains or is authorized by law. A general authorization for the release of medical or other information is not sufficient for this purpose. Hospital accepts no responsibility if the information is made available to any other person, INCLUDING THE PATIENT. Interpretation Summary * Name: RACHAEL HARRINGTON Study Date: 06/08/2018 12:30 PM BP: 133/81 mmHg * Patient Location: C.2T\S\S230\S\1 HR: 58 * : 1960 (M/d/yyyy) Gender: Female Height: 68 in * Age: 57 yrs Ethnicity: CA Weight: 178 lb * Ordering Physician: Brayan Ornelas * Performed By: Naima Neri RDCS * * Reason For Study: NSTEMI * BSA: 1.9 m2 * -- Conclusions -- * 1. Normal LV size. Mild concentric LVH. * 2. LVEF 45-50 %. Hypokinetic mid to apical segments. * 3. Normal RV size and function. * 4. No significant valvular pathology. * 5. No prior studies for comparison. Procedure Details * A complete two-dimensional transthoracic echocardiogram was performed (2D, M-mode, Doppler and color flow Doppler). * A contrast injection of Definity was performed to improve assessment of LV function. * Contrast was injected into an intravenous site in the right arm. * One vial of Definity ultrasound contrast was diluted in normal saline to a total volume of 10 ml. A total of '2.5' ml of solution was administered during imaging. * Lot # [id number] of Definity utilized for procedure. * Expiration date 05/07. * The attending nurse who injected the contrast agent was ROHAN WOODALL RN. Left Ventricle * The left ventricle is grossly normal size. * There is mild concentric left ventricular hypertrophy. * The basal septum is thickened and angulated consistent with sigmoid septum. * Ejection Fraction = 45-50%. * Hypokinetic mid to apical segments. Right Ventricle * The right ventricle is grossly normal size. * The right ventricular systolic function is normal as assessed by tricuspid annular plane systolic excursion (TAPSE) (normal >1.5 cm). Atria * The left atrial size is normal. * Right atrial size is normal. * No ASD detected; PFO is not assessed. Mitral Valve * The mitral valve is grossly normal. * There is no mitral valve stenosis. * There is trace mitral regurgitation. Tricuspid Valve * The tricuspid valve is not well visualized, but is grossly normal. * Significant tricuspid regurgitation is absent. Aortic Valve * The aortic valve opens well. * The aortic valve is trileaflet. * No hemodynamically significant valvular aortic stenosis. * There is no significant aortic regurgitation. Pulmonic Valve * The pulmonary valve is inadequately visualized, but the Doppler data is adequate for interpretation. * Pulmonic stenosis is absent. * Trace pulmonic valvular regurgitation. Great Vessels * The aortic root and proximal ascending aorta are normal sized. Pericardium/Pleural * There is no pericardial effusion. Great Vessels * Normal inferior vena cava size and collapsability with sniff indicates a normal right atrial pressure of 3 mmHg MMode 2D Measurements and Calculations IVSd 1.6 cm IVSs 1.8 cm LVIDd 4.6 cm LVIDs 3.1 cm LVPWd 1.2 cm LVPWs 2.3 cm IVS/LVPW 1.3 FS 32.6 % EDV(Teich) 95.3 ml ESV(Teich) 37.2 ml EF(Teich) 61.0 % EDV(cubed) 94.8 ml ESV(cubed) 29.1 ml EF(cubed) 69.3 % % IVS thick 17.5 % % LVPW thick 84.0 % LV mass(C)d 255.3 grams LV mass(C)dI 131.2 grams/m\S\2 LV mass(C)s 287.9 grams LV mass(C)sI 148.0 grams/m\S\2 SV(Teich) 58.2 ml SI(Teich) 29.9 ml/m\S\2 SV(cubed) 65.7 ml SI(cubed) 33.8 ml/m\S\2 ACS 1.7 cm LA dimension 3.0 cm asc Aorta Diam 3.0 cm LVOT diam 2.0 cm LVOT area 3.2 cm\S\2 LVAd ap4 38.4 cm\S\2 LVLd ap4 8.3 cm EDV(MOD-sp4) 147.0 ml EDV(sp4-el) 150.3 ml LVAs ap4 23.3 cm\S\2 LVLs ap4 6.7 cm ESV(MOD-sp4) 67.9 ml ESV(sp4-el) 68.4 ml EF(MOD-sp4) 53.8 % EF(sp4-el) 54.5 % LVAd ap2 26.9 cm\S\2 LVLd ap2 6.9 cm EDV(MOD-sp2) 84.5 ml EDV(sp2-el) 89.8 ml LVAs ap2 15.9 cm\S\2 LVLs ap2 5.9 cm ESV(MOD-sp2) 34.0 ml ESV(sp2-el) 36.4 ml EF(MOD-sp2) 59.7 % EF(sp2-el) 59.5 % LVLd %diff -21.54 % EDV(MOD-bp) 121.1 ml LVLs %diff -14.27 % ESV(MOD-bp) 50.3 ml EF(MOD-bp) 58.4 % SV(MOD-sp4) 79.1 ml SI(MOD-sp4) 40.6 ml/m\S\2 SV(MOD-sp2) 50.5 ml SI(MOD-sp2) 26.0 ml/m\S\2 SV(MOD-bp) 70.8 ml SI(MOD-bp) 36.4 ml/m\S\2 SV(sp4-el) 81.9 ml SI(sp4-el) 42.1 ml/m\S\2 SV(sp2-el) 53.5 ml SI(sp2-el) 27.5 ml/m\S\2 Doppler Measurements and Calculations MV E max erik 73.8 cm/sec MV A max erik 65.7 cm/sec MV E/A 1.1 MV dec time 0.21 sec Ao V2 max 91.5 cm/sec Ao max PG 3.3 mmHg Ao max PG (full) 1.2 mmHg HAILEE(V,A) 2.6 cm\S\2 HAILEE(V,D) 2.6 cm\S\2 LV V1 max PG 2.2 mmHg LV V1 max 73.5 cm/sec PA V2 max 73.3 cm/sec PA max PG 2.2 mmHg
[2018-06-08] MEDS: HEPARIN 25,000 UNIT/500ML D5W 500 ML IV SCH (16:14)
[2018-06-08] MEDS ORDERED: METO25TA3 PO (16:24)
[2018-06-08] MEDS ORDERED: LPT40 PO (16:24)
[2018-06-08] MEDS ORDERED: ASPI81TA28 PO (16:24)
[2018-06-08] MEDS ORDERED: LISI-729 PO (16:24)
--- NOTE | 2018-06-08 20:16 | Discharge Summary ---
Discharge Summary Date of Service Jun 08, 2018. Discharge Summary Admission Date: Jun 07, 2018 at 19:15 Discharge Date: Jun 08, 2018 Discharge Disposition: Home Principal Diagnosis: Takotsubo Cardiomyopathy Procedures: CHEST ONE VIEW PORTABLE CLINICAL HISTORY: Substernal chest pain, dyspnea. COMPARISON STUDY: Chest radiograph January 17, 2017. FINDINGS: Lung volumes are at the lower limits of normal. There is no pneumothorax or pleural effusion. There is no evidence for pulmonary edema or pneumonia. Cardiac size is normal. Mediastinal contours are normal. IMPRESSION: No acute cardiopulmonary findings. Electronically signed by: Aaron Charles M.D. 06/07/2018 3:40 PM Dictated Date/Time: 06/07/2018 3:39 PM Cardiac Cath Performed. Vessels patient, no stents placed, Final report pending at time of dc. Discharge Exam Review of Systems: Constitutional: No fever, No chills, No sweats, No weakness, No fatigue Eyes: No worsening of vision, No diplopia Respiratory: No cough, No wheezing, No shortness of breath, No dyspnea on exertion, No dyspnea at rest Cardiovascular: No chest pain, No orthopnea, No edema, No palpitations Abdomen: No pain, No nausea, No vomiting, No diarrhea, No constipation Musculoskeletal: No joint pain, No muscle pain, No swelling Genitourinary - Female: No dysuria Genitourinary - Male: No dysuria Neurologic: No weakness, No numbness/tingling, No vertigo Psychiatric: + anxiety Endocrine: No fatigue Integumentary: No rash, No new/changing skin lesions Physical Exam: General Appearance: WD/WN, no apparent distress Eyes: normal inspection, PERRL, EOMI ENT: hearing grossly normal Neck: supple, no adenopathy, thyroid normal, no JVD, no carotid bruits, trachea midline Respiratory/Chest: chest non-tender, lungs clear, normal breath sounds, no respiratory distress, no accessory muscle use Cardiovascular: regular rate, rhythm, no edema, no murmur Abdomen / GI: normal bowel sounds, non tender, soft, no organomegaly, no pulsatile mass Extremities: normal inspection, normal capillary refill, no pedal edema, non -tender Neurologic/Psychiatric: normal mood/affect, oriented x 3 Skin: normal color, warm/dry, no rash Lymphatic: no adenopathy Hospital Course Ms. Gustafson is a 57yo woman with a PMHx of 40+ pack/years tobacco use who presented by ambulance to [facility] for crushing substernal chest pain that came on gradually during left lift exercises and which persisted for >1 hour. Her symptoms resolved en route to the hospital with a dose of nitro given by EMS. In the ED troponins were elevated to 0.8 with 2 ECG's showing no ischemic change ; she was admitted for NSTEMI. She was started on aspirin, atorvastatin, heparin, nitroglycerin, fentanyl, and metoprolol. She continued to be asymptomatic overnight, cardiac cath was performed the next morning. Cardiac cath showed patent cardiac vessels, no stents were placed. ECHO showed some wall motion abnormalities with a preserved EF. Troponins peaked at 1.13 and began to downtrend. She was determined to likely have a mild/atypical presentation of stress cardiomyopathy/Takotsubo's. Diet, exercise, and tobacco cessation counseling was provided. She appeared clinically well, reported she was at her normal baseline health, and was discharged on Atorvastatin 40mg, ASA 81mg, Metoprolol XL 25mg, and Lisinopril 5mg with followup to her PCP and Cardiology and a lab work (BMP) to be done next week. Resident Physician Supervision Note: I interviewed and examined the patient. Discussed with Dr. Malik and agree with findings and plan as documented in the note. Any exceptions or clarifications are listed here: None Documented By: Jim Ibanez feeling ok no further chest pain, burgess shave headache cath noted case d/w cardiology vitals noted nad breathing unlabored no pallor or icterus ost/msk - R>L suboccipitals high tone/tender/decreased ROM - inhibitory pressure - improved. takotsubo's - med management, home, outpt f/u headache - tension headache somatic dysfunction cervical region - is the cause of the tension headache - OMT as above smoke cessation stable for home Total Time Spent: Greater than 30 minutes This includes examination of the patient, discharge planning, medication reconciliation, and communication with other providers. Discharge Instructions Please refer to the electronic Patient Visit Report (Discharge Instructions) for additional information. Follow-Up Dr. Breana Argueta, PCP Dr. Sharpe, Cardiology Additional Copies To Breana Argueta .Radha; Karlos Sharpe MD
== END 2018-06-08 17:52 | disposition home or self-care (01) | DRG 287 ==
LOC: C.EDB 14:34 → EDBD 14:34 → C.2T 19:15 → ENRESERV 19:22 → EDBEDREQ 19:23
PROVIDERS: ADMIT Family Medicine; ATTEND Family Medicine
PROC: 4A023N7 Measurement of Cardiac Sampling and Pressure, Left Heart, Percutaneous Approach (ICD-10-PCS; principal; 2018-06-08 13:30)
PROC: B2150ZZ Fluoroscopy of Left Heart using High Osmolar Contrast (ICD-10-PCS; principal; 2018-06-08 13:30)
PROC: B2100ZZ Fluoroscopy of Single Coronary Artery using High Osmolar Contrast (ICD-10-PCS; principal; 2018-06-08 13:30)
DX: I51.81 Takotsubo syndrome (principal); Z82.49 Family history of ischemic heart disease and other diseases of the circulatory system; Z83.3 Family history of diabetes mellitus; F17.200 Nicotine dependence, unspecified, uncomplicated; E87.6 Hypokalemia; E83.42 Hypomagnesemia

== ENCOUNTER 2019-03-06 16:27 | Inpatient (IN) ==
[2019-03-06] MEDS ORDERED: HYDROmorphone INJ 1 MG/ML SYRINGE IV PRN (16:38)
[2019-03-06] MEDS ORDERED: NITROGLYCERIN 2% OINTMENT 30GM TUBE EXT STA (16:38)
[2019-03-06] MEDS ORDERED: ONDANSETRON INJ 2 MG/ML 2 ML VIAL IV STA (16:54)
[2019-03-06] MEDS ORDERED: ALUMINUM/MAGNESIUM SUSP 18 ML, LIDOCAINE HCL VISCOUS 2% 6 ML, BARCODE IDENTIFIER 1 EA PO ONE (16:54)
--- NOTE | 2019-03-06 17:00 | XRay Report ---
XR chest 1V portable CLINICAL HISTORY: Chest Pain COMPARISON STUDY: Chest radiograph June 07, 2018. FINDINGS: Positioning on this exam was difficult. No consolidation is noted. There is no pneumothorax or pleural effusion. Pulmonary vascularity is normal. Cardiomediastinal is unremarkable. Left lung a pex is obscured. IMPRESSION: No acute cardiopulmonary findings. Electronically signed by: Aaron Charles M.D. 03/06/2019 4:59 PM
[2019-03-06] MEDS ORDERED: GI COCKTAIL ED USE PO ONE (17:01)
[2019-03-06 17:10] LABS: Basophils # (auto) 0.02 K/uL (0-0.2); Basophils % (auto) 0.2 %; Eosinophils # (auto) 0.12 K/uL (0-0.5); Hematocrit (blood only) 43.6 % (37-47); Immature Granulocytes # (auto) 0.03 K/uL (0.00-0.02); Immature Granulocytes % (auto) 0.2 %; Lymphocytes # (auto) 2.89 K/uL (1.2-3.4); Lymphocytes % (auto) 23.8 %; Mean Corpuscular Hgb Conc 36.7 g/dL (32-36); Mean Corpuscular Volume 87.9 fL (80-100); Mean Platelet Volume 9.9 fL (7.4-10.4); Monocytes # (auto) 1.01 K/uL (0.11-0.59); Monocytes % (auto) 8.3 %; Neutrophils # (auto) 8.08 K/uL (1.4-6.5); Neutrophils % (auto) 66.5 %; Platelet Count 284 K/uL (130-400); RDW Coefficient of Variation 12.6 % (11.5-14.5); RDW Standard Deviation 39.8 fL (36.4-46.3); Red Blood Count 4.96 M/uL (4.2-5.4); White Blood Count 12.15 K/uL (4.8-10.8)
[2019-03-06 17:29] LABS: Albumin Level 4.1 gm/dl (3.4-5.0); BUN Creatinine Ratio 9.8 (10-20); Calcium 9.8 mg/dl (8.5-10.1); Creatinine Clr Calc Pharmacy 64.8 ml/min; Est GFR (African American) 63.4; Est GFR (Non-African American) 54.7; Potassium 3.7 mmol/L (3.5-5.1)
[2019-03-06 17:36] LABS: Albumin Globulin Ratio 1.3 (0.9-2); Bilirubin,Total 0.6 mg/dl (0.2-1); Globulin 3.2 gm/dl (2.5-4.0); Total Protein 7.3 gm/dl (6.4-8.2); Troponin I 0.207 ng/ml (0-0.045)
[2019-03-06] MEDS ORDERED: PROMETHAZINE 25 MG/51 ML BAG IV STA (18:00)
[2019-03-06] MEDS ORDERED: OPTIRAY 320 125ml IV PRN (18:11)
[2019-03-06 18:14] LABS: iSTAT Creatinine 0.7 mg/dl (0.6-1.3); iSTAT Ionized Calcium 1.14 mmol/l (1.12-1.32); iSTAT Potassium 3.7 mEq/L (3.3-5.0)
[2019-03-06] MEDS ORDERED: METOCLOPRAMIDE HCL INJ 5 MG/ML 2 ML VIAL IV ONE (18:25)
--- NOTE | 2019-03-06 18:26 | CT Scan Report ---
CT ANGIOGRAPHY OF THE CHEST, ABDOMEN, AND PELVIS CLINICAL HISTORY: Chest and back pain. COMPARISON STUDY: Chest radiograph June 07, 2018 and March 06, 2019. TECHNIQUE: Before and following the IV administration of 120 mL of Optiray-320, helical axial images of the chest, abdomen and pelvis were obtained. Maximal intensity projections and sagittal and coron al reformats were viewed on an independent 3D workstation. IV contrast was administered without comp lication. Automated exposure control was utilized for the study. A dose lowering technique was util ized adhering to the principles of ALARA. CT DOSE: 1227.48 mGy.cm FINDINGS: The caliber of the thoracic aorta is normal. There is no intramural hematoma or thoracic a ortic dissection. The size of the heart is normal. There is no pericardial effusion. There is a small hiatal hernia. There are no enlarged thoracic lymph nodes. There is moderate coronary artery calcifi cation. A few calcified thoracic lymph nodes are noted. There are few calcified granulomas within the lungs. No consolidation is noted to suggest pneumonia. There is mild biapical bulla/paraseptal emphy sema. No acute thoracic spine fracture is present. There are no pulmonary emboli. Mild multilevel deg enerative changes within the thoracic spine are noted. There is fatty infiltration of the liver. IMPRESSION: 1. No thoracic aortic dissection. 2. No acute findings within the chest. 3. No acute thoracic spine fracture. Electronically signed by: Aaron Charles M.D. 03/06/2019 6:24 PM
--- NOTE | 2019-03-06 18:45 | Emergency Department Note ---
Entered by Loyda Garner acting as a scribe for ED Provider Note CHIEF COMPLAINT: Chest pain HISTORY OF PRESENT ILLNESS: The patient is a 58 year old female with a history of fibromyalgia, an NSTEMI, and Takotsubo cardiomyopathy who presents to the Emergency Room with complaints of worsening non-radiating chest pain starting 2 hours ago. The patient reports that her chest pain presented while she was changing her bedsheets after doing some dance exercises. Per EMS, the patient was vomiting upon EMS arrival. EMS notes that the patient has not vomited since leaving her home, and the patient states that she is no longer nauseous. EMS reports that the patient was administered Zofran, Aspirin, and Nitroglycerin prior to arrival, and the patient notes that the medications brought her pain down from a 10/10 to a 5/10. However, she now states that her pain is back up to a 9/10 and that it hurts to breathe. The patient indicates that her current pain feels similar to her NSTEMI last year. She reports that she took her Lisinopril and Metoprolol this morning but has not taken her reflux medication for a while. She has been having back pain. She denies a history of blood clots, COPD, asthma, and emphysema. Pt denies LOC, headache, fevers, chills, diaphoresis, visual changes, neck pain, abdominal pain, melena, hematochezia, urinary symptoms, numbness, weakness, lymphadenopathy, rash, or other complaints. REVIEW OF SYSTEMS: See HPI for pertinent positives and negatives. A total of ten systems were reviewed and were otherwise negative. PMHx/PSHx: Fibromyalgia, NSTEMI, Takotsubo cardiomegaly SOCIAL HISTORY: Patient lives at home. She is . She is disabled and unemployed. PHYSICAL EXAM: GENERAL: Awake, alert, uncomfortable-appearing, in moderate distress HENT: Normocephalic, atraumatic. Oropharynx unremarkable. EYES: PERRL. Normal conjunctiva. Sclera non-icteric. NECK: Inspection normal. Non-tender. Supple. No nuchal rigidity. FROM. No masses. RESPIRATORY: Clear to auscultation. No wheezes. No rales. Normal respiratory effort. CARDIAC: Borderline bradycardic rate. Normal rhythm. No murmurs. No rubs. Extremities warm and well perfused. Pulses equal. No JVD. GI: Soft, non-distended. No tenderness to palpation. No rebound or guarding. No masses. RECTAL: Deferred. MUSCULOSKELETAL: Atraumatic. Chest examination reveals no tenderness. The back is symmetrical on inspection without obvious abnormality. There is no CVA tenderness to palpation. No joint edema. LOWER EXTREMITIES: Calves are equal size bilaterally and non-tender. No edema. No discoloration. NEURO: Normal sensorium. No sensory or motor deficits noted. SKIN: No rash or jaundice noted. EMERGENCY DEPARTMENT COURSE: 163: Past medical records reviewed. The patient was evaluated in room A11B, and a complete history and physical examination were performed. 1736: I checked on the patient and updated her on her results. 1818: I reevaluated the patient at this time. She states that she no longer has pain but is still nauseous. 1847: I reviewed the patient's case with Dr. Ibanez - Hospitalist, [facility]. Dr. Ibanez will evaluate the patient for further management. MEDICAL DECISION MAKING: Prior records/ancillary studies reviewed. Patient problem list notes that she has has a history of Takotsubo cardiomyopathy Triage Nursing notes reviewed and agree them. The patient's history was concerning for chest pain. Differential diagnosis: Etiologies such as cardiac ischemia, aortic dissection, pulmonary embolism, pneumonia, pneumothorax, musculoskeletal, infections, pericarditis, myocarditis, esophageal rupture, gastrointestinal, as well as others were entertained. Physical examination: As above. Patient was nauseated and uncomfortable. ER treatment provided: Prehospital treatment included aspirin. Nitropaste IV Dilaudid IV Zofran On reassessment the patient was still nauseated. She was given IV Phenergan. She felt somewhat better and then had more nausea. She was given IV Reglan 5 mg. She was pain-free. Diagnostic interpretation by me: The electrocardiogram was negative for significant ST segment changes. The labs revealed a mild leukocytosis on CBC. Chemistry panel was unremarkable. The patient's troponin is mildly elevated. Imaging studies: Chest x-ray was unremarkable. The patient did note some back pain and therefore was sent to CT imaging to rule out dissection. No acute pathology noted on CT imaging. Consultation: A consultation was placed with the hospitalist. The case was discussed and diagnostics were reviewed. The patient was evaluated in the ER for further treatment. IMPRESSION: Substernal chest pain Elevated troponin Nausea and vomiting Leukocytosis PLAN: Admitted The scribe's documentation has been prepared under my direction and personally reviewed by me in its entirety. I confirm that the note above accurately reflects all work, treatment, procedures, and medical decision making performed by me. Impression & Plan Substernal chest pain, Elevated troponin, Nausea and vomiting, Leukocytosis Past Med/Surg History Medical History Fibromyalgia NSTEMI (non-ST elevated myocardial infarction) Takotsubo cardiomyopathy Surgical History No pertinent past surgical history Family History Father Stroke Brother Schizophrenia Social History Preferred Language: Serbian Communication Ability: Effective Communication Ability Comment: drowsy Apron Man Required: No Beliefs That Will Affect Care: None marital status: Current Living Situation: Alone current occupational status: unemployed and disabled Other Information That Helps Us Care for You: No Feels Safe at Home: Yes Safety Concerns: Feels Safe At This Time Smoking Status: Current some day smoker Tobacco Type: cigarettes Cigarettes Per Day: 2/day o some days Do You Dip or Chew Tobacco: No Tobacco Cessation Education Requested by Patient: No Hx Alcohol Use: Yes Alcohol type: beer Hx Substance Use: No Results & Data Vital Signs Vital Signs - 24 hr 03/06/19 16:27 03/06/19 16:34 03/06/19 17:03 Temperature 36.6 C Temperature Source Oral Sepsis Recent Fever Within 48 Hours No Sepsis New/Unexplained Change in Mental Status No Sepsis Action Taken by Nursing No Action Required Pulse Rate 60 66 64 Pulse Rate from SpO2 Sensor 65 64 Pulse Rhythm Regular Pulse Strength Normal Respiratory Rate 22 17 19 Respiratory Effort / Characteristics Non-Labored Spontaneous Respiratory Depth Normal Respiratory Pattern Regular Blood Pressure 157/91 H 157/91 H 157/91 H Blood Pressure Mean 113 113 113 Pulse Oximetry 100 100 100 Oxygen Delivery Method Room Air Room Air Room Air 03/06/19 17:11 03/06/19 17:31 03/06/19 18:34 Temperature Temperature Source Sepsis Recent Fever Within 48 Hours Sepsis New/Unexplained Change in Mental Status Sepsis Action Taken by Nursing Pulse Rate 77 65 65 Pulse Rate from SpO2 Sensor 72 66 69 Pulse Rhythm Pulse Strength Respiratory Rate 29 H 19 14 Respiratory Effort / Characteristics Respiratory Depth Respiratory Pattern Blood Pressure 184/111 H 173/105 H 148/81 H Blood Pressure Mean 135 127 103 Pulse Oximetry 99 98 99 Oxygen Delivery Method Room Air Room Air Room Air Home Medications Current Medication List: was personally reviewed by me Laboratory Data Attestation: I reviewed the patient's lab results. Result diagrams: 03/06/19 17:03 03/06/19 17:03 Lab Results 03/06/19 03/06/19 03/06/19 Range/Units 17:03 17:03 17:08 WBC 12.15 H (4.8-10.8) K/uL RBC 4.96 (4.2-5.4) M/uL Hgb 16.0 (12.0-16.0) g/dL POC Hgb 15.0 (12.0-16.0) g/dl Hct 43.6 (37-47) % POC Hct 44 (37-47) % MCV 87.9 (80-100) fL MCH 32.3 (25-34) pg MCHC 36.7 H (32-36) g/dL RDW Std Deviation 39.8 (36.4-46.3) fL RDW Coeff of Malik 12.6 (11.5-14.5) % Plt Count 284 (130-400) K/uL MPV 9.9 (7.4-10.4) fL Immature Gran % (Auto) 0.2 % Neut % (Auto) 66.5 % Lymph % (Auto) 23.8 % Billings % (Auto) 8.3 % Eos % (Auto) 1.0 % Baso % (Auto) 0.2 % Immature Gran # (Auto) 0.03 H (0.00-0.02) K/uL Neut # (Auto) 8.08 H (1.4-6.5) K/uL Lymph # (Auto) 2.89 (1.2-3.4) K/uL Billings # (Auto) 1.01 H (0.11-0.59) K/uL Eos # (Auto) 0.12 (0-0.5) K/uL Baso # (Auto) 0.02 (0-0.2) K/uL POC Sodium 142 (135-144) mEq/L Sodium 142 (136-145) mmol/L POC Potassium 3.7 (3.3-5.0) mEq/L Potassium 3.7 (3.5-5.1) mmol/L POC Chloride 105 (101-112) mEq/L Chloride 109 H (98-107) mmol/L Carbon Dioxide 21 (21-32) mmol/L POC Total CO2 20 L (24-31) mEq/l Anion Gap 12.0 H (3-11) POC Anion Gap 21.0 (16-25) mmol/L POC BUN 10 (7-18) mg/dl BUN 11 (7-18) mg/dl Creatinine 1.11 (0.6-1.2) mg/dl POC Creatinine 0.7 (0.6-1.3) mg/dl Est Cr Clr Drug Dosing 64.8 ml/min Est GFR ( Amer) 63.4 Est GFR (Non-Af Amer) 54.7 BUN/Creatinine Ratio 9.8 L (10-20) Glucose 110 H (70-99) mg/dl POC Glucose (other) 115 H (70-99) mg/dl Calcium 9.8 (8.5-10.1) mg/dl POC Ioniz Calcium Madi 1.14 (1.12-1.32) mmol/l Total Bilirubin 0.6 (0.2-1) mg/dl AST 34 (15-37) U/L ALT 53 (12-78) U/L Alkaline Phosphatase 115 (45-117) U/L Troponin I 0.207 H* (0-0.045) ng/ml Total Protein 7.3 (6.4-8.2) gm/dl Albumin 4.1 (3.4-5.0) gm/dl Globulin 3.2 (2.5-4.0) gm/dl Albumin/Globulin Ratio 1.3 (0.9-2) Lipase 149 (73-393) U/L Administered Medications Hydromorphone HCl (Dilaudid) 1 mg IV Q15M PRN PRN Reason: Pain Stop: 03/20/19 16:37 Last Admin: 03/06/19 17:05 Dose: 1 mg Documented by: [id number] Ioversol (Optiray 320 125ml) 120 ml IV ONCE PRN PRN Reason: Interaction Checking Stop: 03/10/19 18:10 Last Admin: 03/06/19 18:12 Dose: 120 ml Documented by: [id number] Discontinued Medications Al Hydrox/Mg Hydrox/Simethicone () Confirm Administered Dose 1 dose PO .STK-MED ONE Stop: 03/06/19 17:02 Last Admin: 03/06/19 17:21 Dose: Not Given Documented by: [id number] Al Hydrox/Mg Hydrox/Simethicone 18 ml/ Lidocaine HCl 6 ml/ BARCODE IDENTIFIER 1 ea 0 ml PO ONE ONE Stop: 03/06/19 16:55 Last Admin: 03/06/19 17:21 Dose: 30 ml Documented by: [id number] Promethazine HCl (Phenergan) 25 mg in 51 mls @ 204 mls/hr IV NOW STA Stop: 03/06/19 18:14 Last Infusion: 03/06/19 18:26 Dose: 0 mls/hr Documented by: [id number] Admin: 03/06/19 18:08 Dose: 204 mls/hr Documented by: [id number] Metoclopramide HCl (Reglan) 5 mg IV ONE ONE Stop: 03/06/19 18:26 Last Admin: 03/06/19 18:33 Dose: 5 mg Documented by: [id number] Nitroglycerin (Nitro-Bid 2%) 0.5 inch EXT NOW STA Stop: 03/06/19 16:39 Last Admin: 03/06/19 17:05 Dose: 0.5 inch Documented by: [id number] Ondansetron HCl (Zofran) 4 mg IV NOW STA Stop: 03/06/19 16:55 Last Admin: 03/06/19 17:05 Dose: 4 mg Documented by: [id number] Imaging Data Radiologist's Impression: Radiology results as stated below per my review and the radiologist's interpretation: XR chest 1V portable CLINICAL HISTORY: Chest Pain COMPARISON STUDY: Chest radiograph June 07, 2018. FINDINGS: Positioning on this exam was difficult. No consolidation is noted. There is no pneumothorax or pleural effusion. Pulmonary vascularity is normal. Cardiomediastinal is unremarkable. Left lung apex is obscured. IMPRESSION: No acute cardiopulmonary findings. Electronically signed by: Aaron Charles M.D. 03/06/2019 4:[address] ANGIOGRAPHY OF THE CHEST, ABDOMEN, AND PELVIS CLINICAL HISTORY: Chest and back pain. COMPARISON STUDY: Chest radiograph June 07, 2018 and March 06, 2019. TECHNIQUE: Before and following the IV administration of 120 mL of Optiray-320, helical axial images of the chest, abdomen and pelvis were obtained. Maximal intensity projections and sagittal and coronal reformats were viewed on an independent 3D workstation. IV contrast was administered without complication. Automated exposure control was utilized for the study. A dose lowering techn ique was utilized adhering to the principles of ALARA. CT DOSE: 1227.48 mGy.cm FINDINGS: The caliber of the thoracic aorta is normal. There is no intramural hematoma or thoracic aortic dissection. The size of the heart is normal. There is no pericardial effusion. There is a small hiatal hernia. There are no enlarged thoracic lymph nodes. There is moderate coronary artery calcification. A few calcified thoracic lymph nodes are noted. There are few calcified granulomas within the lungs. No consolidation is noted to suggest pneumonia. There is mild biapical bulla/paraseptal emphysema. No acute thoracic spine fracture is present. There are no pulmonary emboli. Mild multilevel degenerative changes within the thoracic spine are noted. There is fatty infiltration of the liver. IMPRESSION: 1. No thoracic aortic dissection. 2. No acute findings within the chest. 3. No acute thoracic spine fracture. Electronically signed by: Aaron Charles M.D. 03/06/2019 6:24 PM ECG Data Attestation: I personally reviewed and interpreted this ECG as follows: Indication: chest pain Rate (beats per minute): 57 Rhythm: sinus bradycardia Findings: + PVC; no ST depression and no ST elevation Blood Pressure Blood Pressure Findings: Elevated blood pressure Blood Pressure Disposition: further management by hospitalist Discharge Plan Visit Data Chief Complaint: Chest Pain Stated Complaint: CHEST PAIN ED Provider: Roberto Hassan Discharge Problem: Substernal chest pain, Elevated troponin, Nausea and vomiting, Leukocytosis Patient Disposition: Admitted As Inpatient Forms Stand Alone Forms: Call Back Authorization, [facility] Minkler eeden Prescriptions Prescriptions: No Action atorvastatin 40 mg Tablet 40 mg PO DAILY RF: 0 aspirin [Aspirin Low Dose] 81 mg Tablet,Delayed Release (Dr/Ec) 81 mg PO DAILY RF: 0 nitroglycerin [Nitrostat] 0.4 mg Tablet, Sublingual 0.4 mg sublingual DAILY PRN (Reason: Chest Pain) RF: 0 lisinopril 5 mg Tablet 5 mg PO DAILY RF: 0 Vitamin D3 Complete 18 mg iron-800 mcg-150 mg Tablet 18 mg PO DAILY RF: 0 metoprolol succinate 25 mg Capsule,Sprinkle,Er 24hr 25 mg PO DAILY RF: 0 Referrals Referrals: Breana Argueta MD [Primary Care Provider] - Discharge Problem: Nausea and vomiting Qualifiers: Vomiting type: unspecified Vomiting Intractability: non-intractable Qualified Code(s): R11.2 - Nausea with vomiting, unspecified Leukocytosis Qualifiers: Leukocytosis type: unspecified Qualified Code(s): D72.829 - Elevated white blood cell count, unspecified The scribe's documentation has been prepared under my direction and personally reviewed by me in its entirety. I confirm that the note above accurately reflects all work, treatment, procedures, and medical decision making performed by me.
[2019-03-06] MEDS ORDERED: METOPROLOL TARTRATE 1 MG/ML VIAL IV STA (19:17)
--- NOTE | 2019-03-06 19:27 | History & Physical Report ---
Date of Service March 06, 2019 Assessment & Plan (1) NSTEMI (non-ST elevated myocardial infarction): -She was here last year in May with what appeared to be an unstable angina, had a heart cath that showed mostly clear coronaries, she did have one blockage of 20 to 30%. -At that time her situation appeared most consistent with a Takotsubo cardiomyopathy, and by September her echo appears to have resolved. The differential for this in May was possibly vasospasm as well -She has not had any significant life stressors right now, and actually seemed to be working on improving her situation, and then suddenly had onset of symptoms. Given that she does not have a ST elevation MS, it is extremely unlikely to be typical coronary disease at play, especially given her heart cath being almost clean last year. It seems most likely vasospasm is actually the etiology, versus less likely a recurrence of Takotsubo -Trend enzymes, check echo -Beta-christine, JONATAN inhibitor, atorvastatin, heparin drip for now, amlodipine to help protect against vasospasm, nitrates, morphine as needed pain, oxygen as needed. No indication for emergent cath given no ST elevations. Should her pain persist and troponins continue to rise, then cath may need to be considered, but given her coronaries from just May, this seems to be extremely unlikely. (2) Fibromyalgia: Continue home regimen (3) Hypertension: Medications as above, follow blood pressure (4) Hyperlipidemia: Atorvastatin (5) DVT prophylaxis: For now heparin drip until her enzymes are clearly trending down. Then likely switch to Lovenox subcu (6) Discharge planning issues: She will be admitted to telemetry I did not feel that I could truly assess CODE STATUS given her grogginess after having received Phenergan. We will need to address this when she is more alert. (7) Nausea: Follow, continue as needed Zofran. History of Present Illness Chief Complaint: Chest pain Primary Care Provider: Breana Argueta MD History is somewhat limited as the patient is a bit groggy after getting a dose of Phenergan. Between what she is able to offer and discussion with the ER physician, she was apparently trying to exercise with a dance exercise routine earlier today, she actually denies having any chest pain or shortness of breath during the dance exercise routine other than shortness of breath of what she attributes to being out of shape. After exercising she went to make her bed, and then suddenly had onset of substernal chest pressure and shortness of breath. She called 911, was given nitroglycerin and aspirin, and the pain has improved to about a 3. Not with her initial symptom complex but later, she started to have nausea and vomiting, and in spite of Zofran, Phenergan, and other medications given in the ER, she is still somewhat nauseated. She denies any other symptoms currently. Allergies Allergy/AdvReac Type Severity Reaction Status Date / Time gabapentin Allergy Unknown VERTIGO Verified 03/06/19 18:11 pregabalin Allergy Unknown "FELT LIKE Verified 03/06/19 18:11 A ZOMBIE" tramadol Allergy Unknown HIVES Verified 03/06/19 18:11 Home Medications Home Medications Medication Instructions Recorded Confirmed Type aspirin [Aspirin Low Dose] 81 mg PO DAILY 02/09/19 03/06/19 History atorvastatin 40 mg PO DAILY 02/09/19 03/06/19 History lisinopril 5 mg PO DAILY 02/09/19 03/06/19 History metoprolol succinate 25 mg PO DAILY 02/09/19 03/06/19 History [id number]-[id number]-FA-herbal cmplx#190 18 mg PO DAILY 02/09/19 03/06/19 History [Vitamin D3 Complete] nitroglycerin [Nitrostat] 0.4 mg SUBLINGUAL DAILY PRN 02/09/19 03/06/19 History Past Med/Surg History Medical History Fibromyalgia NSTEMI (non-ST elevated myocardial infarction) Takotsubo cardiomyopathy Surgical History No pertinent past surgical history Family History Father Stroke Brother Schizophrenia Social History Preferred Language: Serbian Communication Ability: Effective Communication Ability Comment: drowsy 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 Handler 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: No Beliefs That Will Affect Care: None marital status: Current Living Situation: Alone current occupational status: unemployed and disabled Other Information That Helps Us Care for You: No Feels Safe at Home: Yes Safety Concerns: Feels Safe At This Time Smoking Status: Current some day smoker Tobacco Type: cigarettes Cigarettes Per Day: 2/day o some days Do You Dip or Chew Tobacco: No Tobacco Cessation Educ ation Requested by Patient: No Hx Alcohol Use: Yes Alcohol type: beer Hx Substance Use: No Review of Systems Review of Systems: All systems reviewed & are unremarkable except as noted in HPI & below Somewhat limited due to grogginess after Phenergan. Physical Exam Physical Exam: General she is awake but groggy he does fall asleep some midsentence. Appears mildly nauseated but otherwise very fatigued. HEENT normal cephalic atraumatic mucous membranes are moist Cardio is regular no rubs murmurs or gallops Lungs clear to auscultation bilaterally no rales rhonchi or wheezes good effort Abdomen is soft nondistended nontender no masses organomegaly Extremities no cyanosis clubbing or edema no calf tenderness Skin shows no rashes no pallor or icterus Neuro exam shows cranial nerves II through XII be grossly intact gross motor and sensory are intact Musculoskeletal exam shows no gross lesions Mental status is groggy as above EKG with flipped T's in lead III, otherwise normal sinus rhythm. No ST-T wave changes in [address] elevations Results & Data Vital Signs (Past 12 Hours) Vital Signs Temp Pulse Resp BP Pulse Ox 03/06/19 18:34 65 14 148/81 H 99 03/06/19 17:31 65 19 173/105 H 98 03/06/19 17:11 77 29 H 184/111 H 99 03/06/19 17:03 64 19 157/91 H 100 03/06/19 16:34 66 17 157/91 H 100 03/06/19 16:27 36.6 C 60 22 157/91 H 100 Laboratory Results Troponin noted to be 0.[address] chest without worrisome findings
[2019-03-06] MEDS ORDERED: ENOXAPARIN INJ 40 MG/0.4 ML SYR SQ SCH (20:56)
[2019-03-06] MEDS ORDERED: ALUMINUM/MAGNESIUM SUSP 30 ML UDC PO PRN (20:56)
[2019-03-06] MEDS ORDERED: POLYETHYLENE (MIRALAX) 17 GM PACK PO PRN (20:56)
[2019-03-06] MEDS ORDERED: NITROGLYCERIN SL 0.4 MG/TAB TAB SL PRN ×2 (20:56)
[2019-03-06] MEDS ORDERED: MAGNESIUM HYDROXIDE SUSP 30 ML UDC PO PRN (20:56)
[2019-03-06] MEDS ORDERED: ACETAMINOPHEN 325 MG TAB PO PRN (20:56)
[2019-03-06] MEDS ORDERED: ONDANSETRON INJ 2 MG/ML 2 ML VIAL IV PRN (20:56)
[2019-03-06] MEDS ORDERED: AMLODIPINE BESYLATE 5 MG TAB PO ONE (20:56)
[2019-03-06] MEDS ORDERED: HEPARIN IV BOLUS 6,000 UNITS in SYRINGE 0 ML IV ONE (21:30)
[2019-03-06 21:41] LABS: Partial Thromboplastin Ratio 0.9; Partial Thromboplastin Time 25.6 Seconds (21.0-31.0); Prothrombin Time 9.9 Seconds (9.0-12.0)
[2019-03-06] MEDS: ATORVASTATIN 40 MG TAB PO SCH (21:53)
[2019-03-06] MEDS: LISINOPRIL 5 MG TAB PO SCH (21:54)
[2019-03-06] MEDS: Heparin Adult STANDARD Wt-Based Dextrose 5% 25,000 units/500 mL IV SCH (21:54)
[2019-03-06] MEDS: NITROGLYCERIN 2% OINTMENT 30GM TUBE EXT SCH (21:59)
[2019-03-06] MEDS: METOPROLOL TARTRATE 1 MG/ML VIAL IV SCH ×2 (22:33→23:31)
[2019-03-07] MEDS: NITROGLYCERIN 2% OINTMENT 30GM TUBE EXT SCH ×3 (04:22→14:57)
[2019-03-07 04:31] LABS: Hemoglobin 14.5 g/dL (12.0-16.0); Mean Corpuscular Hgb Conc 35.4 g/dL (32-36); Mean Corpuscular Volume 89.7 fL (80-100); Mean Platelet Volume 9.9 fL (7.4-10.4); Platelet Count 262 K/uL (130-400); RDW Coefficient of Variation 12.8 % (11.5-14.5); RDW Standard Deviation 41.3 fL (36.4-46.3); Red Blood Count 4.57 M/uL (4.2-5.4); White Blood Count 12.43 K/uL (4.8-10.8)
[2019-03-07 04:53] LABS: Partial Thromboplastin Ratio 2.5
[2019-03-07 04:55] LABS: Partial Thromboplastin Time 66.4 Seconds (21.0-31.0)
[2019-03-07] MEDS: METOPROLOL TARTRATE 1 MG/ML VIAL IV SCH ×3 (06:22→17:56)
[2019-03-07] MEDS ORDERED: PERFLUTREN LIPID MICROSPHERE (DEFINITY) IV ONE (07:49)
[2019-03-07] MEDS ORDERED: METOPROLOL SUCC 25MG EXT REL TAB PO SCH (09:00)
[2019-03-07] MEDS: LISINOPRIL 5 MG TAB PO SCH (10:38)
[2019-03-07] MEDS: ASPIRIN 81 MG ECTAB PO SCH (10:38)
[2019-03-07] MEDS ORDERED: ACETAMINOPHEN 500 MG TAB PO STA (13:56)
[2019-03-07] MEDS: MoRPHine SULFATE 2 MG/ML CARP IV PRN ×3 (14:27→15:02)
[2019-03-07] MEDS: diazePAM 2 MG TABLET PO ONE ×2 (14:28→15:40)
[2019-03-07] MEDS ORDERED: TICAGRELOR 90 MG TAB PO ONE ×2 (14:57→15:59)
[2019-03-07] MEDS ORDERED: NiCARDipine HCL INJ 2.5 MG/ML 10 ML AMP ONE (15:06)
[2019-03-07] MEDS ORDERED: HEPARIN (PORCINE) 1000 UNIT/ML 10 ML (CATH LAB USE ONLY) ONE (15:07)
[2019-03-07] MEDS ORDERED: MIDAZOLAM HCL 1 MG/ML 2ML VIAL ONE (15:07)
[2019-03-07] MEDS ORDERED: NITROGLYCERIN/D5W 100MCG/ML 20ML SYR ONE (15:07)
[2019-03-07] MEDS ORDERED: fentaNYL citrate 100 MCG/2 ML VIAL ONE (15:08)
--- NOTE | 2019-03-07 15:25 | Cardiology Consultation ---
Date of Consultation March 07, 2019 Assessment & Plan (1) NSTEMI (non-ST elevated myocardial infarction): She had no ST elevation upon presentation but now has mild ST elevation in the anterior leads in the setting of crushing substernal chest pain, abnormal echo, and elevated cardiac enzymes. Although she had only mild LAD disease in May of 2018, recommend cardiac catheterization urgently to ensure that the proximal/mid LAD plaque is not ruptured or partially ruptured as to cause her symptoms. She has received aspirin. Additional morphine was ordered. Brilinta 180 mg ordered. She has been on heparin drip per primary service. Heart alert was called. Case was discussed with Dr. Rothman, covering interventionalist. Risks and benefits of the procedure were discussed with her and she was agreeable to proceed. (2) Takotsubo cardiomyopathy: She has a history of stress-induced cardiomyopathy. It is not certain at this time if she had any inciting event prior to this presentation as she was unable to fully communicate with me during our visit due to her acute distress. She may have recurrent takotsubo but as above, given her acute distress and ongoing symptoms with objective findings, recommend coronary angiography. (3) CAD (coronary artery disease), absentee-[place] coronary artery: Plan as above. Continue anti-platelet therapy. Continue beta-christine and JONATAN-inhibitor. Continue high-intensity statin therapy. (4) Hypertension: Blood pressure was quite elevated during this event however had been better controlled overnight and throughout the morning. Blood pressure was quite elevated yesterday as well. Would recommend titrating beta-christine and JONATAN-inhibitor as heart rate and blood pressure allow to optimize blood pressure control. (5) Angina at rest: Plan as above. Urgent cardiac catheterization. Symptoms are improving with medical therapy but chest pain remains. Disposition: Highly complex medical issues. Plan of care discussed with Dr. Ibanez and also critical care team. Dr. Sharpe will resume her cardiology care tomorrow. Addendum: Cardiac catheterization postpone for STEMI through the ER. She continues to have chest pain but improved and feels much more comfortable. She is having difficulty urinating currently. We discussed any recent stressors and she has financial struggles and is having difficulty paying her bills but states that she has not had any recent overwhelming emotional moment. 70 minutes critical care time spent, including counseling patient, coordinating care, reviewing studies, and discussing with involved providers. History of Present Illness Reason for Consultation: Recurrent Takotsubo's Requesting Physician: Dr. Ibanez Attending Physician: iJm Ibanez, DO History of Present Illness Ms. Sheppard is a 58-year-old female with a history significant for stress-induced (takotsubo) cardiomyopathy, hypertension, dyslipidemia, and fibromyalgia. Her primary director of cloud services is Dr. Sharpe. She presented to [facility] in May of 2018 with mildly elevated troponins and underwent cardiac catheterization demonstrated nonobstructive CAD within the LAD. Her echocardiogram at that time demonstrated mid to apical wall motion abnormalities and she was diagnosed with Takotsubo's or stress-induced cardiomyopathy. She was treated with medical therapy and her LV systolic function was reported as normal in September of 2018 on repeat echocardiogram. She presented to the hospital once again yesterday on 03/06/2019 with chest discomfort. Unfortunately, when I presented to the bedside for consultation after being called by nursing staff that she was having recurrent chest pain, she was unable to provide much history as she had just been vomiting and was currently having 10/10 substernal chest discomfort with significant, drenching diaphoresis. She was significantly nauseated as well. According to records, she had exercised yesterday in the form of dancing and then following this, she developed chest pressure and shortness of breath. Symptoms reportedly improved with nitroglycerin and aspirin and then she later had nausea and vomiting. Dr. Ibaenz came to the echo lab today to discuss her care and we reviewed her echocardiogram together. It was noted that her mid to apical wall motion abnormalities were once again present, similar to her prior echo in May of 2018. At that time, she had been chest pain-free and was doing well. He then shared the news with her about her echocardiogram and approximately 30 minutes or less following, she developed substernal chest pain as described above. At this time, an ECG was done by nursing staff and she was also given morphine. Nursing staff called to inform me that she was having chest discomfort. ECG was reviewed and it was noted that she had some mild ST elevation in the anterior leads, that was not present on prior ECG. I presented to the bedside and found her as described above, with diaphoresis, chest discomfort, and nausea. Heart alert was called at that time. Nitroglycerin paste was requested at the bedside and she was given another dose of intravenous morphine. Tyrone Arreola of the critical care team happened to be in the hallway and we transferred her to the ICU while awaiting for the labor relations specialist to be available. By the time she got to the ICU, her diaphoresis had improved significantly and her chest pain reduced by approximately 50%. Review of systems: As above and otherwise unobtainable due to patient's distress, as she was not readily answering questions. Family history: No documented premature CAD according to records. Social history: According to admitting note, she smokes 2 cigarettes per day. There is no family at the bedside. Allergies Allergy/AdvReac Type Severity Reaction Status Date / Time gabapentin Allergy Unknown VERTIGO Verified 03/06/19 18:11 pregabalin Allergy Unknown "FELT LIKE Verified 03/06/19 18:11 A ZOMBIE" tramadol Allergy Unknown HIVES Verified 03/06/19 18:11 Home Medications Home Medications Medication Instructions Recorded Confirmed Type aspirin [Aspirin Low Dose] 81 mg PO DAILY 02/09/19 03/06/19 History atorvastatin 40 mg PO DAILY 02/09/19 03/06/19 History lisinopril 5 mg PO DAILY 02/09/19 03/06/19 History metoprolol succinate 25 mg PO DAILY 02/09/19 03/06/19 History mh-jf-pjzk-FA-herbal cmplx#190 18 mg PO DAILY 02/09/19 03/06/19 History [Vitamin D3 Complete] nitroglycerin [Nitrostat] 0.4 mg SUBLINGUAL DAILY PRN 02/09/19 03/06/19 History Patient History Medical History Fibromyalgia NSTEMI (non-ST elevated myocardial infarction) Takotsubo cardiomyopathy Surgical History No pertinent past surgical history Family History Father Stroke Brother Schizophrenia Social History Preferred Language: German Communication Ability: Effective Communication Ability Comment: drowsy Electro Winning 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 She was alert. HEENT: Anicteric sclera. Neck: Cannot appreciate JVD. Cardiac: Regular rate and rhythm. Normal S1-S2. No murmurs, rubs, or gallops. Pulmonary: Clear to auscultation bilaterally without wheezes, rales, or rhonchi. Abdomen: Soft, nontender, nondistended, with normoactive bowel sounds. No bruits noted. Extremities: 2+ radial pulses bilaterally. 2+ posterior tibialis pulses bilaterally. No edema or cyanosis. Psychiatric: Affect appears appropriate. Results & Data Vital Signs (Past 12 Hours) Vital Signs Temp Pulse Pulse Resp BP BP Pulse Ox 03/07/19 14:41 89 184/131 H 03/07/19 14:01 85 161/100 H 100 03/07/19 11:49 36.7 C 83 18 111/68 97 03/07/19 10:36 84 114/76 03/07/19 08:00 84 03/07/19 07:58 36.7 C 80 18 101/66 98 03/07/19 06:22 79 115/76 03/07/19 03:40 36.6 C 86 18 110/70 99 Laboratory Results Laboratory Results - last 24 hr 03/06/19 03/06/19 03/06/19 17:03 17:03 17:03 WBC 12.15 H RBC 4.96 Hgb 16.0 POC Hgb Hct 43.6 POC Hct MCV 87.9 MCH 32.3 MCHC 36.7 H RDW Std Deviation 39.8 RDW Coeff of Malik 12.6 Plt Count 284 MPV 9.9 Immature Gran % (Auto) 0.2 Neut % (Auto) 66.5 Lymph % (Auto) 23.8 [place] % (Auto) 8.3 Eos % (Auto) 1.0 Baso % (Auto) 0.2 Immature Gran # (Auto) 0.03 H Neut # (Auto) 8.08 H Lymph # (Auto) 2.89 [place] # (Auto) 1.01 H Eos # (Auto) 0.12 Baso # (Auto) 0.02 PT 9.9 INR 1.0 APTT 25.6 PTT Ratio 0.9 POC Sodium Sodium 142 POC Potassium Potassium 3.7 POC Chloride Chloride 109 H Carbon Dioxide 21 POC Total CO2 Anion Gap 12.0 H POC Anion Gap POC BUN BUN 11 Creatinine 1.11 POC Creatinine Est Cr Clr Drug Dosing 64.8 Est GFR ( Amer) 63.4 Est GFR (Non-Af Amer) 54.7 BUN/Creatinine Ratio 9.8 L Glucose 110 H POC Glucose (other) Calcium 9.8 POC Ioniz Calcium Madi Total Bilirubin 0.6 AST 34 ALT 53 Alkaline Phosphatase 115 Troponin I 0.207 H* Total Protein 7.3 Albumin 4.1 Globulin 3.2 Albumin/Globulin Ratio 1.3 Lipase 149 03/06/19 03/07/19 03/07/19 17:08 00:59 04:21 WBC RBC Hgb POC Hgb 15.0 Hct POC Hct 44 MCV MCH MCHC RDW Std Deviation RDW Coeff of Malik Plt Count MPV Immature Gran % (Auto) Neut % (Auto) Lymph % (Auto) [place] % (Auto) Eos % (Auto) Baso % (Auto) Immature Gran # (Auto) Neut # (Auto) Lymph # (Auto) [place] # (Auto) Eos # (Auto) Baso # (Auto) PT INR APTT 66.4 H* PTT Ratio 2.5 POC Sodium 142 Sodium POC Potassium 3.7 Potassium POC Chloride 105 Chloride Carbon Dioxide POC Total CO2 20 L Anion Gap POC Anion Gap 21.0 POC BUN 10 BUN Creatinine POC Creatinine 0.7 Est Cr Clr Drug Dosing Est GFR ( Amer) Est GFR (Non-Af Amer) BUN/Creatinine Ratio Glucose POC Glucose (other) 115 H Calcium POC Ioniz Calcium Madi 1.14 Total Bilirubin AST ALT Alkaline Phosphatase Troponin I 2.920 H* Total Protein Albumin Globulin Albumin/Globulin Ratio Lipase 03/07/19 03/07/19 03/07/19 04:21 04:21 09:51 WBC 12.43 H RBC 4.57 Hgb 14.5 POC Hgb Hct 41.0 POC Hct MCV 89.7 MCH 31.7 MCHC 35.4 RDW Std Deviation 41.3 RDW Coeff of Malik 12.8 Plt Count 262 MPV 9.9 Immature Gran % (Auto) Neut % (Auto) Lymph % (Auto) [place] % (Auto) Eos % (Auto) Baso % (Auto) Immature Gran # (Auto) Neut # (Auto) Lymph # (Auto) [place] # (Auto) Eos # (Auto) Baso # (Auto) PT INR APTT PTT Ratio POC Sodium Sodium POC Potassium Potassium POC Chloride Chloride Carbon Dioxide POC Total CO2 Anion Gap POC Anion Gap POC BUN BUN Creatinine POC Creatinine Est Cr Clr Drug Dosing Est GFR ( Amer) Est GFR (Non-Af Amer) BUN/Creatinine Ratio Glucose POC Glucose (other) Calcium POC Ioniz Calcium Madi Total Bilirubin AST ALT Alkaline Phosphatase Troponin I 3.600 H* 2.780 H* Total Protein Albumin Globulin Albumin/Globulin Ratio Lipase Diagnostic Findings Echo 03/07/2019: Normal LV size with mildly reduced systolic function. EF 45%. Akinesis of the mid anterolateral, mid inferoseptal, mid inferior, mid anteroseptal wall segments. Mid to distal anterior and apical segments are hypokinetic to akinetic. Basal segments appear hyperdynamic. No significant valvular abnormalities. ECGs personally reviewed: ECG 03/06/2019: Sinus bradycardia at 57 bpm. ECG 03/07/2019 at 1423: Sinus rhythm [address] elevation in anterior leads. Cardiac catheterization 06/08/2018: Proximal, mid LAD 20-30% with mild calcification. Medications Administered Current Inpatient Medications Acetaminophen (Tylenol) 650 mg PO Q4H PRN PRN Reason: Pain or Fever Stop: 04/05/19 20:55 Last Admin: 03/07/19 08:35 Dose: 650 mg Documented by: Al Hydrox/Mg Hydrox/Simethicone (Maalox) 15 ml PO Q4H PRN PRN Reason: Dyspepsia Stop: 04/05/19 20:55 Aspirin (Ecotrin Ectab) 81 mg PO DAILY [facility] Stop: 04/06/19 08:59 Last Admin: 03/07/19 10:38 Dose: 81 mg Documented by: Atorvastatin Calcium (Lipitor) 40 mg PO HS [facility] Stop: 04/05/19 20:59 Last Admin: 03/06/19 21:53 Dose: 40 mg Documented by: Diclofenac Sodium (Voltaren 1% Top) 1 appln EXT QID [facility] Stop: 04/06/19 16:59 Heparin Sodium/Dextrose (Heparin Sodium/Dextrose) 25,000 units in 500 mls @ 26 mls/hr IV .[id number] [facility]; Protocol Stop: 04/05/19 21:29 Last Titration: 03/07/19 07:02 Dose: 1,300 units/hr, 26 mls/hr Documented by: Lisinopril (Zestril) 5 mg PO DAILY [facility] Stop: 04/05/19 20:55 Last Admin: 03/07/19 10:38 Dose: 5 mg Documented by: Magnesium Hydroxide (Milk Of Magnesia) 30 ml PO Q12H PRN PRN Reason: Constipation Stop: 04/05/19 20:55 Metoprolol Succinate (Toprol Xl) 25 mg PO QAM [facility] Stop: 04/06/19 08:59 Metoprolol Tartrate (Lopressor) 5 mg IV Q6 [facility] Stop: 04/05/19 20:55 Last Admin: 03/07/19 12:56 Dose: Not Given Documented by: Miscellaneous (Order Awaiting Action) 1 ea N/A DAILY [facility] Stop: 04/06/19 08:59 Last Admin: 03/07/19 11:17 Dose: Not Given Documented by: Morphine Sulfate (Morphine Sulfate) 2 mg IV Q30M PRN PRN Reason: Chest Pain Stop: 03/20/19 20:55 Last Admin: 03/07/19 15:02 Dose: 2 mg Documented by: Nitroglycerin (Nitrostat) 0.4 mg SL UD PRN PRN Reason: Chest Pain Stop: 04/05/19 20:55 Nitroglycerin (Nitro-Bid 2%) 0.5 inch EXT Q6H [facility] Stop: 04/05/19 21:29 Last Admin: 03/07/19 14:57 Dose: 0.5 inch Documented by: Ondansetron HCl (Zofran) 4 mg IV Q6H PRN PRN Reason: Nausea Stop: 04/05/19 20:55 Last Admin: 03/07/19 14:35 Dose: 4 mg Documented by: Polyethylene Glycol (Miralax Powder Packet) 17 gm PO DAILY PRN PRN Reason: Constipation Stop: 04/05/19 20:55
--- NOTE | 2019-03-07 15:52 | Critical Care Consultation ---
Date of Consultation March 07, 2019 Assessment & Plan (1) CAD (coronary artery disease), nondalton coronary artery: Impression: 1. ACS, with ST elevation in anterior leads. 2. COPD changes noted on the CAT scan of the chest. 3. Hypertension, hyperlipidemia, ex-smoker. 4. Fibromyalgia, laminectomy of the lumbar spine. 5. Urinary retention, medication related. 6. History of stress-induced cardiomyopathy in May 2018. Plan: 1. Monitor in the ICU. 2. Antiplatelet therapy. 3. Appreciate cardiology and interventional cardiology input. 4. Pain control. Change morphine to Dilaudid ( urinary retention). 5. ICU core measures. 6. Noted anion gap metabolic acidosis, likely related to the acute event. 7. Discussed with cardiology, discussed with the staff. CCM time 35 minutes. History of Present Illness Reason for Consultation: ACS Requesting Physician: Dr. Ibanez Attending Physician: Jim Ibanez DO History of Present Illness Dear Dr. Ibanez: Thank you for the kind referral Mrs. Sheppard to critical care service. This is 58-year-old female with known history of stress-induced cardiomyopathy in May 2018 underwent a PCI at that time, has been a smoker up until October 2018, had a history of hyperlipidemia and hypertension, presented to the hospital with increasing chest pain and admitted to the hospital for observation. While she was on the floor, the patient developed excruciating chest pain with ST elevation in the anterior leads. The patient was diaphoretic and in severe distress and transferred to the ICU in that regard. The patient denies any nausea at that time no headache, no near syncopal episodes, she did have difficu lty urinating which she was complaining of when she arrived to the ICU . She was diaphoretic. She responded to the morphine she was given, she received Brilinta loading dose and cardiology was called and heart alert code started and interventional cardiology presented at the bedside. Plan was for PCI. Her family history is not contributory. The patient is not a smoker anymore and she does have history of [id number] smoking up until October of this year. Her past medical history significant for stress-induced cardiomyopathy, resolved on following echo, hyperlipidemia, hypertension, fibromyalgia. Allergies Allergy/AdvReac Type Severity Reaction Status Date / Time gabapentin Allergy Unknown VERTIGO Verified 03/06/19 18:11 pregabalin Allergy Unknown "FELT LIKE Verified 03/06/19 18:11 A ZOCARMELAIE" tramadol Allergy Unknown HIVES Verified 03/06/19 18:11 Home Medications Home Medications Medication Instructions Recorded Confirmed Type aspirin [Aspirin Low Dose] 81 mg PO DAILY 02/09/19 03/06/19 History atorvastatin 40 mg PO DAILY 02/09/19 03/06/19 History lisinopril 5 mg PO DAILY 02/09/19 03/06/19 History metoprolol succinate 25 mg PO DAILY 02/09/19 03/06/19 History [id number]-herbal cmplx#190 18 mg PO DAILY 02/09/19 03/06/19 History [Vitamin D3 Complete] nitroglycerin [Nitrostat] 0.4 mg SUBLINGUAL DAILY PRN 02/09/19 03/06/19 History Patient History Medical History Fibromyalgia NSTEMI (non-ST elevated myocardial infarction) Takotsubo cardiomyopathy Surgical History No pertinent past surgical history Family History Father Stroke Brother Schizophrenia Social History Preferred Language: Bulgarian Communication Ability: Effective Communication Ability Comment: drowsy Master Carpenter Required: No Beliefs That Will Affect Care: None marital status: Current Living Situation: Alone current occupational status: unemployed and disabled Other Information That Helps Us Care for You: No Feels Safe at Home: Yes Safety Concerns: Feels Safe At This Time Smoking Status: Current some day smoker Tobacco Type: cigarettes Cigarettes Per Day: 2/day o some days Do You Dip or Chew Tobacco: No Tobacco Cessation Education Requested by Patient: No Hx Alcohol Use: Yes Alcohol type: beer Hx Substance Use: No Review of Systems Review of Systems: Review of system apart from the above was unremarkable. Including 10 systems. Physical Exam Physical Exam: 58-year-old female appeared to be in moderate distress, mainly bothered with her urinary retention, she does have the chest discomfort but subsiding, no shortness of breath, denies any chest pain at the moment, back pain due to history of laminectomy, no increased swelling in her lower extremities, no pain in her calves, denies any dizziness, no abdominal pain, she does have dysuria at the moment. Neurologically appears to be intact nonfocal. Results & Data Vital Signs (Past 12 Hours) Vital Signs Temp Pulse Pulse Resp BP BP Pulse Ox 03/07/19 14:41 89 184/131 H 03/07/19 14:01 85 161/100 H 100 03/07/19 11:49 36.7 C 83 18 111/68 97 03/07/19 10:36 84 114/76 03/07/19 08:00 84 03/07/19 07:58 36.7 C 80 18 101/66 98 03/07/19 06:22 79 115/76 03/07/19 03:40 36.6 C 86 18 110/70 99 Laboratory Results Leukocytosis noted, hematocrit is stable, platelets are 262. Elevated troponin at 2.7. The rest of her BMP are within acceptable range. Diagnostic Findings Chest x-ray did not show any infiltrates or cardiomegaly on 03/06/2019, CAT scan of the chest showed apical bullous disease.
[2019-03-07] MEDS ORDERED: MoRPHine SULFATE 4 MG/ML 1 ML CARP\\VIAL IV STA (15:59)
[2019-03-07] MEDS: Heparin Adult STANDARD Wt-Based Dextrose 5% 25,000 units/500 mL IV SCH (17:32)
[2019-03-07] MEDS ORDERED: ONDANSETRON INJ 2 MG/ML 2 ML VIAL ONE (17:34)
--- NOTE | 2019-03-07 17:34 | Cardiac Catheterization ---
Cardiac Cath Procedure Full Procedure Date March 07, 2019 Pre-Procedure Diagnosis Pre-Procedure Diagnosis: Acute Coronary Syndrome AUC Score AUC Score: 10 Post-Procedure Diagnosis Post-Procedure Diagnosis: Mild CAD Procedure(s) Performed Procedure(s) Performed: Coronary Angiography and Radial Artery Angiography [employer] Johanna Rothman Estimated Blood Loss Estimated Blood Loss: None Summary of Findings Pt with cp Difficult Accessing right radial artery due to stenosis Left radial approach LM: No signifigant dz LAD: 30% mid Circ: no sig disease RCA: No sig sig disease Hemodynamics Rest Ao:: 126/96 Final Ao: 143/118 LV: not done Recommendations Recommendations: Medical Therapy and/or Counseling Radiation Exposure (mGy) not done Contrast (mls) none ACC Data: Criminal Justice Faculty Cardiac Status Clinical evaluation leading to the procedure pt with CP CAD Presenation: Unstable angina Anginal Classification: CCS IV Heart Failure: No Cardiogenic Shock within 24 Hours: No Cardiac Arrest within 24 Hours: No Imaging Studies Past 6 Months: Yes Stress Studies Past 6 Months: No Standard Exercise Test: No Stress Echocardiogram: No Stress Testing w/SPECT MPI: No Cardiac CTA: No STEMI OR Non-STEMI Thrombolytics: No Coronary Anatomy Dominant: Co-Dominant Diagnostic Physicians Name: Johanna Rothman Status: Urgent Closure Device Percutaneous Entry Location: Radial Closure Device: Radial Band Recommendations: Medical Therapy and/or Counseling First Noted: First EKG Lesion Segment Name: lad Culprit Artery: No Stenosis Prior to Rx (%): 30% Chronic Total Occlusion: No IVUS: No FFR: No Pre-Procedure TRENT Flow: 3 Previously Treated Lesion: No Lesion Complexity: Non-High/Non-C Thrombus Present: No Bifurcation Lesion: No Guidewire Across Lesion: No Intraprocedure Events Significant Disection: No Perforation: No
[2019-03-07] MEDS ORDERED: PROCHLORPERAZINE 10 MG in SYRINGE 8 ML IV PRN (17:44)
[2019-03-07] MEDS ORDERED: PANTOprazole 40 MG TAB PO STA (17:45)
[2019-03-07] MEDS: DICLOFENAC SOD 1% GEL 100 GM TUBE EXT SCH ×2 (17:55→20:43)
--- NOTE | 2019-03-07 18:50 | Hospitalist Progress Note ---
Date of Service March 07, 2019 Assessment & Plan (1) NSTEMI (non-ST elevated myocardial infarction): -She was here last year in May with what appeared to be an unstable angina, had a heart cath that showed mostly clear coronaries, she did have one blockage of 20 to 30%. -At that time her situation appeared most consistent with a Takotsubo cardiomyopathy, and by September her echo appears to have resolved. The differential for this in May was possibly vasospasm as well Her echo appears consistent with Takotsubo syndrome yet again, it seems odd that she would have a recurrence of this. At the same time, after discussing findings with her, she very shortly thereafter had angina and had discussed with me that she was fairly anxious about the situation, in spite of my efforts to explain things quite calmly. The recurrence of angina, as well as actually urinary retention, in the face of her anxiety begs the question of whether or not she has anxiety induced vasospasm from a hyper adrenergic state. I also screened her as far as headaches now or during her symptoms prior, and she did not seem to have any, nor does she seem to have massive spikes in heart rate or blood pressure. (Should she have had any of those, screening for pheochromocytoma to have been considered, but seems extremely low yield) (2) Fibromyalgia: Continue home regimen, diclofenac gel for her current shoulder pain, dose of Valium as muscle relaxant as well as to help quell anxiety (3) Hypertension: Medications as above, titrate as possible. (4) Hyperlipidemia: Atorvastatin, continue 40 mg (5) DVT prophylaxis: Lovenox (6) Discharge planning issues: Ongoing inpatient care, hopefully home tomorrow if she is more stable (7) Nausea: Follow, seems to come as part of her anginal pattern after the chest tightness lets up. Subjective pt seen four times today. This morning was feeling much better, no chest pain no shortness of breath, nausea resolved. And then later in the day discussed th e echocardiogram findings with cardiology, and felt that a consult was warranted, and went back to the room to discuss the findings with the patient as well as the plan moving forward. Approximately half hour later she started having crushing substernal chest pressure and shortness of breath as well as a recurrence of nausea and sweats. Cardiology was in the room at the same time is me with that we agreed that while it was most likely vasospasm, certainly given that she looked in severe distress and did have a 30% LAD lesion, cath to rule out plaque rupture was favorable comparing risk and benefit. Patient was then transferred to ICU pending cath given her severe distress, medications were adjusted. Patient was seen again prior to cath, she was still nauseated but the chest pressure and let up the shortness of breath was still present. She also complained of significant anxiety whenever I was discussing echo findings and plans moving forward. Review of Systems Review of Systems: All systems reviewed & are unremarkable except as noted in HPI & below Physical Exam Physical Exam: Multiple different exams throughout the day, the first 2 visits she was awake and pleasant no distress. HEENT normal cephalic atraumatic mucous members moist. Breathing unlabored no accessory muscle use. Skin shows no rashes no pallor or icterus. Neuro shows no focal deficits. Later whenever she was in distress she was hunched over in the bed holding an emesis bag complaining of crushing discomfort looking in severe duress and was very diaphoretic. When seen in the ICU pending cath she was sitting up in bed holding an emesis bag but was no longer in severe distress or diaphoretic. Results & Data Vital Signs (Past 12 Hours) Vital Signs Temp Pulse Pulse Resp BP BP BP 03/07/19 18:30 78 28 H 122/72 03/07/19 18:15 75 17 127/96 03/07/19 18:00 84 15 162/113 H 03/07/19 17:56 90 143/101 H 03/07/19 17:44 36.8 C 89 20 147/101 H 03/07/19 16:01 85 19 162/101 H 03/07/19 16:00 85 03/07/19 15:05 154/108 H 03/07/19 15:02 92 H 23 149/89 H 03/07/19 14:56 167 H 21 168/99 H 03/07/19 14:55 168 H 22 170/105 H 03/07/19 14:41 89 184/131 H 03/07/19 14:01 85 161/100 H 03/07/19 11:49 36.7 C 83 18 111/68 03/07/19 10:36 84 114/76 03/07/19 08:00 84 03/07/19 07:58 36.7 C 80 18 101/66 Pulse Ox 03/07/19 18:30 97 03/07/19 18:15 97 03/07/19 18:00 99 03/07/19 17:56 03/07/19 17:44 95 03/07/19 16:01 100 03/07/19 16:00 03/07/19 15:05 100 03/07/19 15:02 100 03/07/19 14:56 100 03/07/19 14:55 100 03/07/19 14:41 03/07/19 14:01 100 03/07/19 11:49 97 03/07/19 10:36 03/07/19 08:00 03/07/19 07:58 98
[2019-03-07] MEDS: ATORVASTATIN 40 MG TAB PO SCH (20:43)
[2019-03-07] MEDS ORDERED: ALBUTEROL 0.083% NEBU SOLN 3 ML VIAL NEB PRN (22:45)
[2019-03-08 06:46] LABS: BUN Creatinine Ratio 10.9 (10-20); Calcium 8.8 mg/dl (8.5-10.1); Creatinine Clr Calc Pharmacy 75.7 ml/min; Est GFR (African American) 77.5; Est GFR (Non-African American) 66.9; Potassium 3.7 mmol/L (3.5-5.1)
[2019-03-08 06:56] LABS: Troponin I 2.08 ng/ml (0-0.045)
[2019-03-08] MEDS: LISINOPRIL 5 MG TAB PO SCH (07:53)
[2019-03-08] MEDS: ASPIRIN 81 MG ECTAB PO SCH (07:53)
[2019-03-08] MEDS: DICLOFENAC SOD 1% GEL 100 GM TUBE EXT SCH ×3 (07:55→15:42)
[2019-03-08] MEDS ORDERED: ENOXAPARIN INJ 40 MG/0.4 ML SYR SQ SCH (09:00)
[2019-03-08] MEDS ORDERED: diazePAM 2 MG TABLET PO ONE (09:09)
[2019-03-08] MEDS ORDERED: PANTOprazole 40 MG TAB PO SCH (09:15)
--- NOTE | 2019-03-08 15:25 | Discharge Summary ---
Date of Service March 08, 2019 Admission HPI Per Admitting Provider History is somewhat limited as the patient is a bit groggy after getting a dose of Phenergan. Between what she is able to offer and discussion with the ER physician, she was apparently trying to exercise with a dance exercise routine earlier today, she actually denies having any chest pain or shortness of breath during the dance exercise routine other than shortness of breath of what she attributes to being out of shape. After exercising she went to make her bed, and then suddenly had onset of substernal chest pressure and shortness of breath. She called 911, was given nitroglycerin and aspirin, and the pain has improved to about a 3. Not with her initial symptom complex but later, she started to have nausea and vomiting, and in spite of Zofran, Phenergan, and other medications given in the ER, she is still somewhat nauseated. She denies any other symptoms currently. Principal Diagnosis NSTEMI Discharge Exam Constitutional WD/WN, vitals as above Eyes PERRL, conjunctivae normal, anicteric sclerae ENMT external ear and nose normal, oropharynx normal Neck normal visual inspection Respiratory normal respiratory effort, lungs clear to auscultation Cardiovascular RRR, no murmur, no edema Gastrointestinal (Abdomen) normal bowel sounds, soft, nontender, no hepatosplenomegaly Musculoskeletal no cyanosis or clubbing, extremities motor strength 5/5 Skin no rashes, warm and dry Neurologic PERRL, EOMI, accommodation nl, no face palsy, no dysarthria Psychiatric A+Ox3, euthymic affect Mood: + anxious mood Discharge Data Allergies Allergy/AdvReac Type Severity Reaction Status Date / Time gabapentin Allergy Unknown VERTIGO Verified 03/06/19 18:11 pregabalin Allergy Unknown "FELT LIKE Verified 03/06/19 18:11 A ZOMBIE" tramadol Allergy Unknown HIVES Verified 03/06/19 18:11 Consultations 03/06/19 18:41 ED Decision to Admit Stat 03/07/19 13:56 Consult Cardiology Routine Procedures Performed Operation Date: 03/07/19 15:30 Actual Procedures p Cath, Coronaries ONLY (no LV) - Johanna Rothman s Cineradiography w/Routine Exam - Johanna Rothman Ordered Studies 03/06/19 16:38 CT angio chest dissec wo/w con Stat 03/07/19 15:26 CL Cath Imgs for PACS use only Stat Hospital Course (1) NSTEMI (non-ST elevated myocardial infarction): -She was here May with what appeared to be an unstable angina, had a heart cath that showed mostly clear coronaries, she did have one blockage of 20 to 30%. -At that time her situation appeared most consistent with a Takotsubo cardiomyopathy, and by September her echo appears to have resolved. The differential for this in May was possibly vasospasm as well Her echo on this visit appears consistent with Takotsubo syndrome yet again, it seems odd that she would have a recurrence of this. At the same time, after discussing findings with her, she very shortly thereafter had angina and had dis cussed with staff that she was fairly anxious about the situation, in spite of efforts to explain things quite calmly. The recurrence of angina, as well as actually urinary retention, in the face of her anxiety begs the question of whether or not she has anxiety induced vasospasm from a hyper adrenergic state. She was screened for headaches now or during her symptoms prior, and she did not seem to have any, nor does she seem to have massive spikes in heart rate or blood pressure. (Should she have had any of those, screening for pheochromocytoma to have been considered, but seems extremely low yield) -Patient had some ST changes during this episode of angina, and was taken to the medical lab director which showed minimal difference in her [place] vessel CAD compared to last year -C/W medical management: ASA, BB, JONATAN-i, statin. Titrate BP meds as tolerated. -Pt does report she believes stress at home/anxiety are components of chest pain. -Will start on Zoloft and prn ativan until zoloft reaches maximal effect. Discuss as outpatient. -Continue to take GERD meds as they may contribute to chest discomfort (2) Fibromyalgia: Continue home regimen, diclofenac gel for her current shoulder pain (3) Hypertension: Medications as above, titrate as possible. (4) Hyperlipidemia: Atorvastatin, continue 40 mg (5) DVT prophylaxis: (6) Discharge planning issues: (7) Nausea: Total Time Total Time Spent Total Time Spent (In Minutes): 30 Discharge Plan Discharge Items Patient Disposition: Home - Self-Care Reason For Visit: NSTEMI Discharge Diagnosis: Chest pain Discharge Goals: Improve disease control, Improve function, Prevent disease and Therapeutic intervention Activity: Per 'Additional Instructions' section Non-emergency contact: Primary Care Provider and Legal Instructor Call non-emergency contact if: you have any medication questions and your symptoms worsen Follow-up/Referrals: Breana Argueta MD [Primary Care Provider] - 03/11/19 10:00 am (Please, follow up at [facility] with Dr. Argueta on March 11 at 10:00 am. *If you need to change this appointment, call the office at [phone].) Dominik Sharpe MD [Physician] - 03/19/19 2:15 pm (Please, follow up at [facility] Office with Dr. Froilan Sharpe on FridayMarch 19 at 2:15 pm. *If you need to change this appointment, call the office at [phone].) Diet: Regular and Heart Healthy Addtl Provider Instructions: During your visit here, you were evaluated for chest pain. Catheterization of your heart revealed chronic stable coronary artery disease which did not require balooning or stenting. We will continue to manage your cardiac disease with aspirin, atorvastatin, and your blood pressure meds. We will be adding a medication that helps with anxiety, called zoloft, or sertraline. Take this once daily. It may take a few weeks to "kick in" so we wi ll give you an "as needed" tablet to take when you have episodes of excess feelings of stress, which may include chest discomfort. This will be the ativan tablet. Continue to take your daily antacid tablet to deter from reflux contributing to your chest symptoms. If you are experiencing chest discomfort and neither the ativan nor your as needed nitroglycerin (under the tongue) tablet work, please do not hesitate to return to the emergency room. Please follow up with your PCP on 03/11 at 10:00AM. We have scheduled this appointment specifically for you to follow up for this visit. We recommend you follow up with your editor trade journal as well in the next few weeks. You will be called with an appointment time. If you do not hear from their office in the next 3 days, please call [phone] to confirm when your appointment is. Prescriptions: New pantoprazole 40 mg Tablet,Delayed Release (Dr/Ec) 40 mg PO QAM Qty: 30 RF: 0 nitroglycerin [Nitrostat] 0.4 mg Tablet, Sublingual 0.4 mg sublingual UD PRN (Reason: chest pain) 30 Days Qty: 30 RF: 0 diclofenac sodium [Voltaren] 1 % Gel 1 applic EXT QID 30 Days Qty: 30 RF: 0 sertraline 25 mg tablet 25 mg PO DAILY Qty: 30 RF: 0 lorazepam [Ativan] 0.5 mg tablet 0.5 mg PO Q8H PRN (Reason: anxiety) Qty: 30 RF: 0 Continued atorvastatin 40 mg Tablet 40 mg PO DAILY RF: 0 aspirin [Aspirin Low Dose] 81 mg Tablet,Delayed Release (Dr/Ec) 81 mg PO DAILY RF: 0 nitroglycerin [Nitrostat] 0.4 mg Tablet, Sublingual 0.4 mg sublingual DAILY PRN (Reason: Chest Pain) RF: 0 lisinopril 5 mg Tablet 5 mg PO DAILY RF: 0 Vitamin D3 Complete 18 mg iron-800 mcg-150 mg Tablet 18 mg PO DAILY RF: 0 metoprolol succinate 25 mg Capsule,Sprinkle,Er 24hr 25 mg PO DAILY RF: 0 Stand-Alone Forms: Call Back Authorization, [facility] Discharge Orders: Discharge Order (Routine); Ordered 03/08/19 Ordered By: Serenity Alcantara Admission Data Admit Date/Time: 03/06/19 18:56 Attending Provider: Landon Fishman Admit Provider: Jim Ibanez Primary Care Provider: Breana Argueta Other Providers: Jim Ibanez ; Melvin Conti Service: Telemetry Other Interventions: Discharge Summary Assessment (RN) Last Done: 03/08/19 15:57 DC Date/Time DO NOT enter until pt leaves facility: 03/08/19 16:38 Supervising Physician Co-Signing Physician Notes I saw the patient with the resident physician and confirmed lux portions of the history and physical exam. I agree with impression and plan as about the discharge instructions as noted above. Upon my examination, the patient was without complaints. She was hoping to get a shower and to be discharged today. The patient underwent a cardiac catheterization yesterday which just showed mild disease. She wonders today if her chest pain could be related to her anxiety or acid reflux. The patient tells me that she was on an anxiety medication previously but she cannot recall the reason she stopped taking the medication. She would be willing to try a similar medicine going forward. Agree with addition of a SSRI with a benzodiazepine as bridge therapy to SSRI efficacy. She is [place] on appropriate cardiac medications for nonocclusive mild coronary artery disease; also agrees to follow-up with cardiology post discharge. Resident Activity Tracking Resident Involvement: Resident Care Provided Care Provided: Adult Hospital Medicine
[2019-03-08 15:30] VITALS: BP 108/73; TEMP 98.2; O2SAT 98
[2019-03-08 15:58] VITALS: PULSE 78
== END 2019-03-08 16:38 | disposition home or self-care (01) | DRG 282 ==
LOC: ED 16:27 → SUATTDRO 18:56 → 2S 18:56 → 1E 03-07 14:58 → 2E 03-07 18:18
PROC: CLB.CCO (2019-03-07 15:30)

== ENCOUNTER 2025-01-28 07:59 | Inpatient (IN) ==
--- NOTE | 2025-01-03 12:55 | PAT Medication Instructions ---
Medication Instructions Date of Service January 03, 2025 Home Medications Medication Instructions Recorded amlodipine 5 mg tablet 5 mg PO QAM #90 tabs 02/11/24 isosorbide mononitrate 30 mg 30 mg PO QAM #90 tabs 02/12/24 tablet,extended release 24 hr atorvastatin 40 mg tablet 40 mg PO QAM #90 tabs 03/02/24 lorazepam 0.5 mg tablet (Ativan) 0.5 mg PO Q8H PRN anxiety #30 tabs 07/02/24 Scooter #1 ea 07/30/24 famotidine 20 mg tablet 20 mg PO QAM #90 tabs 08/03/24 nitroglycerin 0.4 mg sublingual 0.4 mg sublingual Q5M PRN chest 09/13/24 tablet pain #20 tabs aspirin 81 mg tablet,delayed release (Mela Low Dose Aspirin) 81 mg PO QAM cholecalciferol (vitamin D3) 50 mcg (2,000 unit) tablet 2,000 unit PO QAM medical marijuana 1 dose PO DAILY amlodipine 5 mg tablet 5 mg PO QAM isosorbide mononitrate 30 mg tablet,extended release 24 hr 30 mg PO QAM atorvastatin 40 mg tablet 40 mg PO QAM lorazepam 0.5 mg tablet (Ativan) 0.5 mg PO Q8H PRN famotidine 20 mg tablet 20 mg PO QAM nitroglycerin 0.4 mg sublingual tablet 0.4 mg sublingual Q5M PRN Cbd Vape 1 unit inhalation UD PRN fluticasone propionate 50 mcg/actuation nasal spray,suspension 2 spray intranasal DAILY PRN sertraline 100 mg tablet 100 mg PO QAM Continue as directed lorazepam 0.5 mg tablet (Ativan) 0.5 mg PO Q8H PRN(if needed) nitroglycerin 0.4 mg sublingual tablet 0.4 mg sublingual Q5M PRN(if needed) fluticasone propionate 50 mcg/actuation nasal spray,suspension 2 spray intranasal DAILY PRN(if needed) ASK your prescriber and surgeon aspirin 81 mg tablet,delayed release (Mela Low Dose Aspirin) 81 mg PO QAM DO NOT take the morning of surgery cholecalciferol (vitamin D3) 50 mcg (2,000 unit) tablet 2,000 unit PO QAM medical marijuana 1 dose PO DAILY Cbd Vape 1 unit inhalation UD PRN Take morning of surgery With a small sip of water, OTHERWISE NOTHING TO EAT OR DRINK AFTER MIDNIGHT: amlodipine 5 mg tablet 5 mg PO QAM isosorbide mononitrate 30 mg tablet,extended release 24 hr 30 mg PO QAM atorvastatin 40 mg tablet 40 mg PO QAM famotidine 20 mg tablet 20 mg PO QAM sertraline 100 mg tablet 100 mg PO QAM Other Notes If you have any questions please call us at [phone] or [phone] or [phone] or [phone]
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
[2025-01-28] MEDS ORDERED: PROPOFOL IV EMULSION 10 MG/ML 20 ML VIAL IV ONE (08:42)
[2025-01-28] MEDS ORDERED: fentaNYL citrate PF 100 MCG/2 ML VIAL ONE (08:42)
[2025-01-28] MEDS: LACTATED RINGER'S 1,000 ML IV SCH (08:42)
[2025-01-28] MEDS ORDERED: ROCURONIUM BROMIDE 10 MG/ML 5 ML VIAL IV ONE ×2 (08:42→10:22)
[2025-01-28] MEDS ORDERED: ONDANSETRON INJ 2 MG/ML 2 ML VIAL ONE ×2 (08:42→11:09)
[2025-01-28] MEDS: LR 60ML/HR IV SCH (08:42)
[2025-01-28] MEDS ORDERED: LIDOCAINE 2% 2 ML VIAL/AMP(20MG/ML) INFIL ONE (08:42)
[2025-01-28] MEDS ORDERED: DEXAMETHASONE SOD INJ 4 MG/ML VIAL ONE (08:42)
[2025-01-28] MEDS: CeleBREX 200 MG CAP PO SCH (08:42)
[2025-01-28] MEDS: ACETAMINOPHEN 500 MG TAB PO SCH (08:42)
[2025-01-28] MEDS ORDERED: MIDAZOLAM HCL 1 MG/ML 2ML VIAL ONE (08:42)
[2025-01-28] MEDS ORDERED: ATROPINE SULFATE 0.1 MG/ML 10ML SYR IV PRN (09:05)
[2025-01-28] MEDS ORDERED: PROMETHAZINE HCL 6.25 MG in SODIUM CHLORIDE 0.9% 50 ML IV PRN (09:05)
[2025-01-28] MEDS ORDERED: NALOXONE HCL 0.4 MG/1 ML VIAL/CARP IV PRN ×2 (09:05→14:07)
[2025-01-28] MEDS ORDERED: ePHEDrine sulfate 50 MG/ML AMP IV PRN (09:05)
[2025-01-28] MEDS ORDERED: ONDANSETRON INJ 2 MG/ML 2 ML VIAL IV PRN (09:05)
[2025-01-28] MEDS ORDERED: FLUMAZENIL 0.1 MG/1 ML 10 ML VIAL IV PRN (09:05)
[2025-01-28] MEDS: SCOPOLAMINE 1 MG/72 HR TDSY PATCH TD SCH (09:14)
[2025-01-28] MEDS: SCOPOLAMINE 1 MG/72 HR TDSY PATCH TD ONE (09:14)
--- NOTE | 2025-01-28 09:27 | History & Physical Bridge Note ---
Date of Service January 28, 2025 History & Physical Bridge Note I have examined the patient, reviewed the History & Physical and in the interval since the performance of the History & Physical I have noted the following changes of clinical significance: no changes noted
--- NOTE | 2025-01-28 09:28 | History & Physical Report ---
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 Allergies Allergy/AdvReac Type Severity Reaction Status Date / Time tramadol Allergy Intermediate HIVES Verified 01/28/25 08:07 gabapentin AdvReac Intermediate VERTIGO Verified 01/28/25 08:07 pregabalin AdvReac Intermediate "FELT LIKE Verified 01/28/25 08:07 A CECIL" Home Medications Medication Instructions Recorded Confirmed Type aspirin 81 mg tablet,delayed 81 mg PO QAM 02/09/19 01/28/25 History release (Mela Low Dose Aspirin) cholecalciferol (vitamin D3) 50 2,000 unit PO QAM 03/12/19 01/28/25 History mcg (2,000 unit) tablet medical marijuana 1 dose PO DAILY 09/11/21 01/28/25 History amlodipine 5 mg tablet 5 mg PO QAM #90 tabs 02/11/24 01/28/25 Rx atorvastatin 40 mg tablet 40 mg PO QAM #90 tabs 03/02/24 01/28/25 Rx lorazepam 0.5 mg tablet (Ativan) 0.5 mg PO Q8H PRN anxiety #30 tabs 07/02/24 01/28/25 Rx Scooter #1 ea 07/30/24 01/14/25 Rx famotidine 20 mg tablet 20 mg PO QAM #90 tabs 08/03/24 01/28/25 Rx nitroglycerin 0.4 mg sublingual 0.4 mg sublingual Q5M PRN chest 09/13/24 01/28/25 Rx tablet pain #20 tabs Cbd Vape 1 unit inhalation UD PRN quit 12/31/24 01/28/25 History smoking fluticasone propionate 50 2 spray intranasal DAILY PRN 12/31/24 01/28/25 History mcg/actuation nasal allergies spray,suspension sertraline 100 mg tablet 100 mg PO QAM 12/31/24 01/28/25 History isosorbide mononitrate 30 mg 30 mg PO QAM #90 tabs 01/25/25 01/28/25 Rx tablet,extended release 24 hr Past Med/Surg History Problem List (Updated 01/28/25 @ 09:28 by Luis Hogan DO) 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 Mild CAD Eye swelling, right Impaired mobility and ADLs Encounter for mastoidectomy cavity debridement Rupture of left proximal hamstring tendon Lipoma Hamstring tendinitis Lumbar radiculopathy Right elbow pain Chronic SI joint pain Ischial bursitis Sciatica Perforation of ear drum Jaw pain Chronic otitis media of left ear with perforated tympanic membrane DM2 (diabetes mellitus, type 2) Right low back pain Hypertrophy of both inferior nasal turbinates Encounter for pre-operative examination Deviated septum Vertigo Spondyloarthropathy Hematuria Hip pain History of mastoidectomy Bilateral buttock pain Mixed conductive and sensorineural hearing loss of left ear with restricted hearing of right ear Urinary symptom or sign Right wrist pain Left foot pain Abdominal pain Stomach ulcer Mastoiditis of left side Rib pain Non-healing skin lesion Injury of left foot Cyst of left breast S/P excision of lipoma (09/10/19) Right Flank Lipoma Excision Dr. Rodriguez 09/10/19 Soft tissue mass Anxiety (Chronic) Muscle strain (Acute) Acid reflux disease (Chronic) CAD (coronary artery disease), [place] coronary artery (Chronic) Hyperlipidemia (Acute) Hypertension (Chronic) Nausea and vomiting (Acute) Takotsubo cardiomyopathy (Acute) NSTEMI (non-ST elevated myocardial infarction) Flank pain (Acute) Fibromyalgia (Acute) Medical History Cyst of eye Hx of gastric ulcer History of COVID-19 (09/2023) Ambulatory dysfunction Chronic SI joint pain Acid reflux disease Ankylosing spondylitis Lumbar radiculopathy HLD (hyperlipidemia) Fibromyalgia Deviated septum DM2 (diabetes mellitus, type 2) CAD (coronary artery disease) History of non-ST elevation myocardial infarction (NSTEMI) (2017) PONV (postoperative nausea and vomiting) Medical marijuana use Restless leg syndrome Finding of floating rib Degenerative disc disease Spinal stenosis Osteoarthritis Melanoma Depression with anxiety PVD (peripheral vascular disease) Takotsubo cardiomyopathy Hypertension Surgical History Hx of mastoidectomy History of colonoscopy with polypectomy S/P excision of lipoma Hx of breast reduction, elective History of lumbar surgery (1987) History of esophagogastroduodenoscopy (EGD) History of tooth extraction History of ear surgery History of myringotomy History of cardiac cath (2018) Family History Father Cancer Stroke Brother Schizophrenia Other No family history of adverse response to anesthesia No family history of bleeding disorder Denies family history of Ovarian cancer Prostate cancer Myocardial infarction Breast cancer Colorectal cancer Social History Smoking Status: Former smoker Tobacco Type: Cigarettes Age Started Using Tobacco: 15; Age Quit Using Tobacco: 64; packs per day: 0.5; Cigarettes Per Day: 10 CIG DAILY/Vapes weekly; Smoking End Date: quit nov 29, 2024 (did smoke 1 ppd); Second Hand Exposure: No; Do You Dip or Chew Tobacco: No; Tobacco Cessation Education Requested by Patient: No Hx Alcohol Use: Yes Alcohol type: beer Hx Substance Use: Yes Last Used Substance: Hours (ago) Last Used Substance Other:: medical marijuana daily (Advised) Preferred Language: Jordanian Communication Ability: Effective Communication Ability Comment: drowsy 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 Beliefs That Will Affect Care: None marital status: Current Living Situation: Alone current occupational status: unemployed and disabled How many Children do You have: 1 Other Information That Helps Us Care for You: No Feels Safe at Home: Yes Safety Concerns: Feels Safe At This Time Childhood Exposure to Second-Hand Smoke: Yes Diet: regular caffeine: Yes Dental Care, Regularly: No Physical Activity Frequency: 1-2 Times per Week Seatbelt Use: always Sunscreen Use: No Assistive Devices: Cane, Denture - Upper, Denture - Lower, Hearing Aid - Bilateral, Scooter/Electric Scooter, Walker and Other Assistive Devices Comment: service dog Physical Exam Physical Exam: Patient is alert and oriented heart regular rhythm Lungs clear Results & Data Results & Data Vital Signs (Past 12 Hours) Vital Signs Temp Pulse Resp BP Pulse Ox O2 Del Method 01/28/25 08:28 Room Air 01/28/25 08:20 36.4 C L 67 20 165/83 H 96 Room Air
[2025-01-28] MEDS: ceFAZolin 2000MG 2,000 MG/15 ML SYR IV SCH ×2 (09:58→17:20)
[2025-01-28] MEDS ORDERED: KETAMINE HCL 10MG/ML SYR ONE (10:07)
[2025-01-28] MEDS: BUPIVACAINE/EPINEPHRINE 0.25% 1:200,000 30 ML VIAL ONE (10:34)
[2025-01-28] MEDS: ceFAZolin 330 MG/ML 1 GM VIAL ONE (10:35)
[2025-01-28] MEDS ORDERED: ePHEDrine sulfate 50 MG/5 ML SYR ONE (10:49)
[2025-01-28] MEDS ORDERED: SUGAMMADEX SODIUM 200 MG/2 ML VIAL IV ONE (11:10)
--- NOTE | 2025-01-28 11:30 | Operative Report ---
Post Operative Report Pre & Post Diagnosis Operation Date: 01/28/25 09:35 Pre-Op Diagnosis: #1 spondylosis 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 level with radiculopathy #2 lumbar spinal stenosis Post-Op Diagnosis: Same I identified the patient and participated in the time-out.: Yes Procedure Operation Date: 01/28/25 09:35 Actual Procedures #1 revision decompression with bilateral medial facetectomies and foraminotomies L4-L5 L5-S1. #2 posterior spinal fusion L5-S1. #3 placed posterior instrumentation L5-S1. #4 interbody fusion L5-S1. #5 placement Spira 12 x 26 mm at L5-S1. #6 placement locally harvested morselized autograft posterior gutters. #7 placement infuse collagen sponge, with Koros in the posterior lateral gutters and os design interbody space. #8 application of versa wrap of the exposed dura. Surgeon Luis Hogan, Shake Packer Rudi Quinteros Estimated Blood Loss 150 Findings Consistent with Post-Op Diagnosis Specimens None Indications This is a 64-year-old female this is above-mentioned diagnosis after failing course of nonoperative care is here for surgical invention. Description of Procedure Patient was met with identified informed consent obtained. Patient was then taken to the operative suite underwent intubation placed in a prone position on the Rikki table atop the Spenser frame. All bony prominences well-padded eyes inspected to ensure no external precipice upon them. This point lumbar spine was prepped and draped in normal sterile fashion. Sharp dissection with the assistance of Bovie cautery from down to and exposing the remaining lamina transverse processes of L5 and sacral ala bilaterally. From a caudal cephalad fashion revision complete laminectomy of L5 was performed including bilateral L facetectomies and foraminotomies addressing all neural compression. This is followed by partial laminectomy of L4 with bilateral medial facetectomies to address all subarticular stenosis. Pedicle screws were then placed in L5 and S1 levels bilaterally with assistance of fluoroscopy and appropriate sized eva placed. Will leave a transforaminal approach on the right a complete discectomy of L5-S1 was performed endplates guided to subcortical bleeding bone and a 12 x 26 mm spiral cage filled with os design bone graft tapped in position. The rods were then locked in final position bilaterally. The transverse processes of L5 and S1 were to subcortical bleeding bone. Infuse collagen sponge bath Koros and local autograft placed in posterior gutters. Versa wrap placed over the exposed dura. 15 round ERIC drain inserted. The incision was then closed with 1 Vicryl the fascia 2-0 Vicryl subcutaneously and 4 Monocryl for final skin closure. Steri-Strips and sterile dressing placed. Patient waken taken to PACU in stable condition. Please note spinal cord monitoring visualized at the procedure no changes noted. Rudi Quinteros was present at the entire surgeon for the patient positioning complex portions of the surgery and final skin closure. I attest to the content of the Intraoperative Record and any orders documented therein. Any exceptions are noted below.
[2025-01-28] MEDS: FLOSEAL HEMOSTATIC MATRIX 10ML TOP ONE (11:39)
[2025-01-28] MEDS ORDERED: HYDROmorphone INJ 2 MG/ML SYR/VIAL ONE (11:40)
[2025-01-28] MEDS ORDERED: ALBUTEROL HFA 8 GM INHALER INH ONE (11:47)
[2025-01-28] MEDS: fentaNYL citrate PF 100 MCG/2 ML VIAL IV PRN (12:45)
--- NOTE | 2025-01-28 13:07 | Fluoroscopy Report ---
FL lumbar spine 2-3V CLINICAL HISTORY: L5-S1 Decompression/fusion COMPARISON STUDY: None FLUOROSCOPY TIME: 23 seconds FLUOROSCOPY IMAGES: 3 EXPOSURE DOSE: 22 mGy FINDINGS: Fluoroscopy was provided for L5-S1 metallic fusion. IMPRESSION: Intraoperative fluoroscopy. ACT 112: Negative or not required by law. Electronically signed by: Diony Teague M.D. 01/28/2025 1:05 PM
[2025-01-28] MEDS: HYDROmorphone INJ 1 MG/ML SYRINGE ONE (13:46)
[2025-01-28] MEDS: HYDROmorphone INJ 0.5 MG/0.5 ML SYR IV PRN (14:06)
[2025-01-28] MEDS ORDERED: bisacodyL 10 MG SUPP PR PRN (14:07)
[2025-01-28] MEDS ORDERED: DO NOT ADMINISTER FLU VACCINE PRN (14:07)
[2025-01-28] MEDS ORDERED: DO NOT ADMINISTER PNEUMOCOCCAL VACCINE PRN (14:07)
[2025-01-28] MEDS ORDERED: LORazepam 2 MG/1 ML VIAL IV PRN (14:07)
[2025-01-28] MEDS ORDERED: diphenhydrAMINE Capsule 25 MG CAP PO PRN (14:07)
[2025-01-28] MEDS ORDERED: hydrOXYzine HCl 25 MG TAB PO PRN (14:07)
[2025-01-28] MEDS ORDERED: PROMETHAZINE 12.5 MG/50.5 ML BAG IV PRN (14:07)
[2025-01-28] MEDS ORDERED: FLUTICASONE PROPIONATE NA SPR 16 GM BTL PRN (14:07)
[2025-01-28] MEDS ORDERED: [UNRECOGNIZED DRUG - OTHER] INH PRN (14:07)
[2025-01-28] MEDS ORDERED: ACETAMINOPHEN 1,000 MG/100 ML VIAL IV PRN (14:07)
[2025-01-28] MEDS ORDERED: ACETAMINOPHEN 500 MG TAB PO PRN (14:07)
[2025-01-28] MEDS ORDERED: ONDANSETRON 4 MG OD TAB PO PRN (14:07)
[2025-01-28] MEDS ORDERED: NITROGLYCERIN SL 0.4 MG/TAB TAB SL PRN (14:07)
[2025-01-28] MEDS ORDERED: MAGNESIUM HYDROXIDE SUSP 30 ML UDC PO PRN (14:07)
[2025-01-28] MEDS ORDERED: LORazepam 0.5 MG TAB PO PRN (14:07)
[2025-01-28] MEDS ORDERED: SOD PHOSPHATE/SOD BIPHOSPHATE ENEMA 132 ML BTL PR PRN (14:07)
--- NOTE | 2025-01-28 14:21 | Anesthesiology Progress Note ---
Date of Service January 28, 2025 Anesthesia Post Procedure Vital Signs Vital Signs: Temp Pulse Resp BP Pulse Ox O2 Del Method O2 Flow Rate 01/28/25 14:15 67 14 139/74 95 Nasal Cannula 2 01/28/25 14:00 69 12 129/68 98 Nasal Cannula 2 01/28/25 13:45 36.8 C 76 12 136/69 96 Nasal Cannula 2 01/28/25 13:30 80 16 144/73 H 98 Nasal Cannula 2 01/28/25 13:20 75 12 142/72 H 96 Nasal Cannula 2 01/28/25 13:10 68 12 115/66 94 Nasal Cannula 2 01/28/25 13:00 78 12 131/70 95 Nasal Cannula 2 01/28/25 12:50 81 12 155/56 H 97 Nasal Cannula 2 01/28/25 12:40 83 12 122/83 95 Nasal Cannula 2 01/28/25 12:30 36.6 C 72 15 121/49 L 92 Oxymask 3 01/28/25 12:20 82 12 139/87 Oxymask 6 01/28/25 12:10 85 12 161/73 H Oxymask 6 01/28/25 12:00 76 12 114/54 L 92 Oxymask 12 01/28/25 11:52 36.7 C 78 15 131/61 87 L Oxymask 6 01/28/25 08:28 Room Air 01/28/25 08:20 36.4 C L 67 20 165/83 H 96 Room Air Pain Intensity Bilateral Buttock: Pain Intensity: 4 Back: Pain Intensity: 5 Transfer of Care Handoff Completed per policy Notes Mental Status: alert / awake / arousable Patient Amnestic to Procedure: Yes Nausea / Vomiting: adequately controlled Pain: adequately controlled Airway Patency, RR, SpO2: stable & adequate BP & HR: stable & adequate Hydration State: stable & adequate Anesthetic Complications: no major complications apparent
[2025-01-28] MEDS: CHECK SCOPOLAMINE PATCH PLACEMENT SCH (15:31)
[2025-01-28] MEDS: ONDANSETRON INJ 2 MG/ML 2 ML VIAL IV PRN (15:31)
[2025-01-28] MEDS: oxyCODONE HCL IR 5 MG TAB (IMMEDIATE RELEASE) PO PRN (15:31)
[2025-01-28] MEDS: HYDROmorphone INJ 1 MG/ML SYRINGE IV PRN (16:53)
[2025-01-28] MEDS: METOCLOPRAMIDE HCL INJ 5 MG/ML 2 ML VIAL IV PRN (17:20)
--- NOTE | 2025-01-28 18:15 | Hospitalist Progress Note ---
Date of Service January 28, 2025 Assessment & Plan (1) DM2 (diabetes mellitus, type 2): (2) CAD (coronary artery disease): (3) Fibromyalgia: (4) Hypertension: Plan Postop from spine surgeryhemodynamically stable. Follow. Follow vitals, hemoglobin. Heart rate and blood pressure acceptable at this time #type 2 diabetes - recent A1c 6.3doubt much intervention will be needed, fingersticks and supplemental insulin for now, roll over into basal bolus regimen if ongoing insulin is needed. #Coronary artery diseasemild per records. No concerning symptoms at this time. #Fibromyalgiafollow-up postop, mobility will hopefully help with postop pain control. #Hypertensionblood pressure acceptable given the situation. Continue current medications and follow. #DVT prophylaxisSCDs given that she is postop from spine surgery Admission and Anticipated Discharge Date Admission Date: January 28, 2025 Subjective Patient seen postop. Fairly groggy but awakens to gentle touch. Denies any significant painnoting whenever she is laying on her side as she is she does not have much pain. No shortness of breath. Patient known to me from care several years ago, and recent records reviewed as well. HPI and review of systems fairly limited due to her postoperative, sedated state. Review of Systems Review of Systems: In general she is fairly groggy postop, but does awaken to light touch. HEENT normocephalic atraumatic mucous membranes moist. Cardio is regular without rubs murmurs or gallops. Lungs clear to auscultation bilaterally no rales rhonchi or wheeze with good effort. Skin without rashes pallor or icterus. Neuro without focal deficits. Results & Data Results & Data Vital Signs (Past 12 Hours) Vital Signs Temp Pulse Resp BP Pulse Ox O2 Del Method O2 Flow Rate 01/28/25 17:00 97.7 F 72 16 150/75 H 93 Room Air 01/28/25 16:28 97.5 F L 74 17 120/69 94 Room Air 01/28/25 15:37 98.1 F 77 18 155/76 H 98 Room Air 01/28/25 15:12 97.5 F L 81 18 156/80 H 99 Nasal Cannula 2 01/28/25 15:00 97.9 F 72 18 157/75 H 99 Room Air 2 01/28/25 14:45 Nasal Cannula 2 01/28/25 14:15 67 14 139/74 95 Nasal Cannula 2 01/28/25 14:07 97.7 F 72 20 162/81 H 98 Room Air 2 01/28/25 14:00 69 12 129/68 98 Nasal Cannula 2 01/28/25 13:45 98.2 F 76 12 136/69 96 Nasal Cannula 2 01/28/25 13:30 80 16 144/73 H 98 Nasal Cannula 2 01/28/25 13:20 75 12 142/72 H 96 Nasal Cannula 2 01/28/25 13:10 68 12 115/66 94 Nasal Cannula 2 01/28/25 13:00 78 12 131/70 95 Nasal Cannula 2 01/28/25 12:50 81 12 155/56 H 97 Nasal Cannula 2 01/28/25 12:40 83 12 122/83 95 Nasal Cannula 2 01/28/25 12:30 97.9 F 72 15 121/49 L 92 Oxymask 3 01/28/25 12:20 82 12 139/87 Oxymask 6 01/28/25 12:10 85 12 161/73 H Oxymask 6 01/28/25 12:00 76 12 114/54 L 92 Oxymask 12 01/28/25 11:52 98.1 F 78 15 131/61 87 L Oxymask 6 01/28/25 08:28 Room Air 01/28/25 08:20 97.5 F L 67 20 165/83 H 96 Room Air PG Care Time/CCT Total # of Minutes Spent Total Time Spent with Patient: Total time spent is greater than 50% in coordination of care (as documented) at patient's floor/unit and/or counseling patient: Coding Level of Care Code 61090 SUB INP/OBS CARE 3/50MIN Diagnoses Type 2 diabetes mellitus without complication, without long-term current use of insulin E11.9 Diabetes mellitus meterman insulin use: without meterman use Diabetes mellitus complication status: without complication CAD (coronary artery disease) I25.10 Fibromyalgia M79.7 Hypertension I10 (1) DM2 (diabetes mellitus, type 2) Diabetes mellitus longterm insulin use: without meterman use Diabetes mellitus complication status: without complication Qualified Code(s): E11.9 - Type 2 diabetes mellitus without complications
[2025-01-28] MEDS: INSULIN ASPART PER UNIT CHARGE SC SCH (20:40)
[2025-01-28] MEDS: DOCUSATE SODIUM/SENNA 50/8.6MG TAB PO SCH (20:51)
[2025-01-29] MEDS: ALUMINUM/MAGNESIUM SUSP 30 ML UDC PO PRN (04:02)
[2025-01-29] MEDS: POLYETHYLENE (MIRALAX) 17 GM PACK PO SCH (06:37)
[2025-01-29] MEDS: FAMOTIDINE 20 MG TAB PO PRN (06:40)
[2025-01-29 06:47] LABS: Basophils # (auto) 0.02 K/uL (0.00-0.20); Basophils % (auto) 0.1 %; Eosinophils # (auto) 0.01 K/uL (0.00-0.50); Eosinophils % (auto) 0.1 %; Hematocrit (blood only) 37.7 % (37.0-47.0); Hemoglobin 12.5 g/dl (12.0-16.0); Immature Granulocytes # (auto) 0.06 K/uL (0.01-0.20); Immature Granulocytes % (auto) 0.4 %; Lymphocytes % (auto) 13.6 %; Mean Corpuscular Hgb Conc 33.2 g/dL (32.0-36.0); Mean Corpuscular Volume 90.4 fL (80.0-100.0); Mean Platelet Volume 10.2 fL (9.4-12.4); Monocytes # (auto) 1.41 K/uL (0.11-0.59); Monocytes % (auto) 10.1 %; Neutrophils # (auto) 10.54 K/uL (1.40-6.50); Neutrophils % (auto) 75.7 %; Platelet Count 247 K/uL (130-400); RDW Coefficient of Variation 12.7 % (11.5-14.5); RDW Standard Deviation 41.7 fL (36.4-46.3); Red Blood Count 4.17 M/uL (4.20-5.40); White Blood Count 13.94 K/ul (4.8-10.8)
[2025-01-29 07:08] LABS: Anion Gap 4 (3-11); BUN Creatinine Ratio 19.3 (10-20); Blood Urea Nitrogen 16 mg/dl (6-23); Calcium 8.9 mg/dl (8.6-10.3); Carbon Dioxide 34 mmol/L (21-32); Chloride 101 mmol/L (98-107); Creatinine Clr Calc Pharmacy 80.5 ml/min; Glucose 119 mg/dl (70-99(Fasting)); Sodium 139 mmol/L (136-145)
[2025-01-29] MEDS: dexAMETHasone 6 MG in SYRINGE 0 ML IV SCH (07:39)
[2025-01-29] MEDS: amLODIPine BESYLATE 5 MG TAB PO SCH (07:43)
[2025-01-29] MEDS: FAMOTIDINE 20 MG TAB PO SCH (07:43)
[2025-01-29] MEDS: ASPIRIN 81 MG ECTAB PO SCH (07:43)
[2025-01-29] MEDS: CHOLECALCIFEROL 25 MCG (1000 UNITS) TAB PO SCH (07:43)
[2025-01-29] MEDS: ATORVASTATIN 40 MG TAB PO SCH (07:43)
[2025-01-29] MEDS: SERTRALINE HCL 100 MG TABLET PO SCH (07:43)
--- NOTE | 2025-01-29 08:27 | Hospitalist Progress Note ---
Date of Service January 29, 2025 Assessment & Plan (1) DM2 (diabetes mellitus, type 2): (2) CAD (coronary artery disease): (3) Fibromyalgia: (4) Hypertension: Plan Postop from spine surgeryhemodynamically stable. Follow. Follow vitals, hemoglobin. Heart rate and blood pressure acceptable at this time #pre- diabetes - recent A1c 6.3doubt much intervention will be needed, fingersticks and supplemental insulin for now, roll over into basal bolus regimen if ongoing insulin is needed. - cont diabetic diet #Coronary artery diseasemild per records. No concerning symptoms at this time. #Fibromyalgiafollow-up postop, mobility will hopefully help with postop pain control. #Hypertensionblood pressure acceptable given the situation. Continue current medications and follow. #DVT prophylaxisSCDs given that she is postop from spine surgery Admission and Anticipated Discharge Date Admission Date: January 28, 2025 Subjective No acute events overnight Currently no new complaints States she has been walking around without much difficulty Review of Systems Review of Systems: comprehensive ROS neg Physical Exam Physical Exam: Gen: sitting in chair comfortable HEENT: NC/AT, anicteric, MMM Lungs: CTAB CVS: s1s2nl RRR Abd: soft, NT, nl bowel sounds : no manzano Ext: no edema Neuro: AAOx3 Psych: calm / cooperative Results & Data Results & Data Vital Signs (Past 12 Hours) Vital Signs Temp Pulse Resp BP Pulse Ox O2 Del Method 01/29/25 07:49 36.4 C L 60 19 147/77 H 97 Room Air PG Care Time/CCT Total # of Minutes Spent Total Time Spent with Patient: Total time spent is greater than 50% in coordination of care (as documented) at patient's floor/unit and/or counseling patient: Coding Level of Care Code 53683 SUB INP/OBS CARE 2/35MIN Diagnoses Type 2 diabetes mellitus without complication, without long-term current use of insulin E11.9 Diabetes mellitus complication status: without complication Diabetes mellitus intermediate manager insulin use: without intermediate manager use CAD (coronary artery disease) I25.10 Fibromyalgia M79.7 Hypertension I10 (1) DM2 (diabetes mellitus, type 2) Diabetes mellitus complication status: without complication Diabetes mellitus senior care insulin use: without senior care use Qualified Code(s): E11.9 - Type 2 diabetes mellitus without complications
[2025-01-29] MEDS ORDERED: NON-FORMULARY MEDICATION (Medical Marijuana 1 EA) PO SCH (09:00)
--- NOTE | 2025-01-29 09:38 | Orthopedic Progress Note ---
Date of Service January 29, 2025 Assessment & Plan (1) 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: Plan: At this time we will continue physical therapy monitor ERIC output anticipate possible discharge home tomorrow. Admission and Anticipated Discharge Date Admission Date: January 28, 2025 Subjective Patient's back pain is controlled leg symptoms improved. She has been up and ambulating without difficulty. Physical Exam Physical Exam: Patient is up out of bed and ambulating. She is comfortable. Good strength testing. Results & Data Vital Signs (Past 12 Hours) Vital Signs Temp Pulse Resp BP Pulse Ox O2 Del Method 01/29/25 07:49 36.4 C L 60 19 147/77 H 97 Room Air
[2025-01-29] MEDS: ISOSORBIDE MONO EXTENDED REL 30 MG TABCR PO SCH (10:58)
--- NOTE | 2025-01-30 08:01 | Orthopedic Progress Note ---
Date of Service January 30, 2025 Assessment & Plan (1) 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: Plan: Patient is stable postoperative 2. Her pain is relatively well-controlled. She has been up and walking. Her ERIC drain is still placing a significant amount of fluid out and she has not yet had a bowel movement. I would like to keep her today for more physical therapy to make sure she is independent as she lives by herself. If all goes well today we could send her home tomorrow. Admission and Anticipated Discharge Date Admission Date: January 28, 2025 Subjective Patient was seen bedside in room 356. She is doing relatively well this morning. She still has some back pain and some intermittent symptoms in the right buttock and lateral thigh. She has been walking the hallway. She has been tolerating p.o. Pain medication is adequate. She is not having a pain going down past her knees. She denies any other numbness, tingling, or paresthesias. Physical Exam Physical Exam: On exam she stands and moves easily about the exam room. Her gait is stable with a wheeled walker. Her dressing is clean dry and intact a ERIC drain is in place and is placed out 60 cc on overnight and 50 on evening shift. Her abdomen soft nontender calves are supple and nontender. Strength and sensation are both intact. Results & Data Vital Signs (Past 12 Hours) Vital Signs Temp Pulse Resp BP Pulse Ox O2 Del Method 01/30/25 07:43 36.7 C 65 16 143/70 H 96 Room Air 01/29/25 20:31 36.6 C 63 16 122/71 95 Room Air
[2025-01-30 08:23] LABS: Hematocrit (blood only) 37.5 % (37.0-47.0); Hemoglobin 12.4 g/dl (12.0-16.0); Mean Corpuscular Hemoglobin 30.2 pg (25.0-34.0); Mean Corpuscular Hgb Conc 33.1 g/dL (32.0-36.0); Mean Corpuscular Volume 91.5 fL (80.0-100.0); Mean Platelet Volume 9.8 fL (9.4-12.4); Platelet Count 250 K/uL (130-400); RDW Coefficient of Variation 12.8 % (11.5-14.5); RDW Standard Deviation 42.5 fL (36.4-46.3); White Blood Count 12.86 K/ul (4.8-10.8)
[2025-01-30 08:46] LABS: BUN Creatinine Ratio 23.8 (10-20); Creatinine Clr Calc Pharmacy 79.9 ml/min; Magnesium 2.1 mg/dl (1.7-2.4); Phosphorus 1.7 mg/dl (2.5-4.9)
--- NOTE | 2025-01-30 10:10 | Hospitalist Progress Note ---
Date of Service January 30, 2025 Assessment & Plan (1) DM2 (diabetes mellitus, type 2): (2) CAD (coronary artery disease): (3) Fibromyalgia: (4) Hypertension: Plan Postop from spine surgeryhemodynamically stable. Follow. Follow vitals, hemoglobin. Heart rate and blood pressure acceptable at this time #pre- diabetes - recent A1c 6.3doubt much intervention will be needed, fingersticks and supplemental insulin for now, roll over into basal bolus regimen if ongoing insulin is needed. - cont diabetic diet #Coronary artery diseasemild per records. No concerning symptoms at this time. #Fibromyalgiafollow-up postop, mobility will hopefully help with postop pain control. #Hypertensionblood pressure acceptable given the situation. Continue current medications and follow. #DVT prophylaxisSCDs given that she is postop from spine surgery Admission and Anticipated Discharge Date Admission Date: January 28, 2025 Subjective no acute events currently no new compaints Review of Systems Review of Systems: comprehensive ROS neg Physical Exam Physical Exam: Gen: sitting in bed comfortable HEENT: NC/AT, anicteric, MMM Lungs: CTAB CVS: s1s2nl RRR Abd: soft, NT, nl bowel sounds : no manzano Ext: no edema Spine: drain still in place Neuro: AAOx3 Psych: calm / cooperative Results & Data Results & Data Vital Signs (Past 12 Hours) Vital Signs Temp Pulse Resp BP Pulse Ox O2 Del Method 01/30/25 07:43 36.7 C 65 16 143/70 H 96 Room Air PG Care Time/CCT Total # of Minutes Spent Total Time Spent with Patient: Total time spent is greater than 50% in coordination of care (as documented) at patient's floor/unit and/or counseling patient: Coding Level of Care Code 93378 SUB INP/OBS CARE 2/35MIN Diagnoses Type 2 diabetes mellitus without complication, without long-term current use of insulin E11.9 Diabetes mellitus senior ssis developer insulin use: without residential use Diabetes mellitus complication status: without complication CAD (coronary artery disease) I25.10 Fibromyalgia M79.7 Hypertension I10 (1) DM2 (diabetes mellitus, type 2) Diabetes mellitus senior ssis developer insulin use: without residential use Diabetes mellitus complication status: without complication Qualified Code(s): E11.9 - Type 2 diabetes mellitus without complications
[2025-01-30] MEDS: HYDROmorphone INJ 0.5 MG/0.5 ML SYR IV PRN (15:10)
[2025-01-31 07:06] VITALS: BP 155/74; PULSE 56; RESP 16; TEMP 98.2; O2SAT 96
--- NOTE | 2025-01-31 09:36 | Discharge Summary ---
Date of Service January 31, 2025 Admission HPI Per Admitting Provider This is a 64-year-old female presents with chronic persistent back and leg pain after failing course of nonoperative care is here for surgical intervention. Principal Diagnosis Lumbar spondylosis with radiculopathy Discharge Data Allergies Allergy/AdvReac Type Severity Reaction Status Date / Time tramadol Allergy Intermediate HIVES Verified 01/28/25 08:07 gabapentin AdvReac Intermediate VERTIGO Verified 01/28/25 08:07 pregabalin AdvReac Intermediate "FELT LIKE Verified 01/28/25 08:07 A MENDELIE" Consultations 01/28/25 14:07 Consult Hospitalist Routine Procedures Performed Operation Date: 01/28/25 09:35 Actual Procedures p L5-S1 Decompression and Fusion, Spinal Cord Monitoring(Not Applicable) - Luis Hogan DO Ordered Studies 01/28/25 06:30 FL lumbar spine 2-3V Routine Hospital Course (1) 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: Patient underwent lumbar decompression fusion tolerated as well as taken orthopedic for postoperative. Post ablation progressed appropriate. Marked improvement in her leg and back pain. ERIC drain decreasing properly. Pain controlled. Subsidy discharged home. Discharge orders instructions for the chart for further view. Total Time Total Time Spent Total Time Spent (In Minutes): 20 minutes Discharge Plan Discharge Items Patient Disposition: Home - Self-Care Reason For Visit: Recurrent Herniation of Lumbar Disc, Lumbar Radicu Discharge Diagnosis: Lumbar spondylosis with radiculopathy Activity: As commented below Non-emergency contact: Primary Care Provider Call non-emergency contact if: you have any medication questions Follow-up/Referrals: Zulema Cobos MD [Primary Care Provider] - Diet: Regular Addtl Attending Provider Instructions: ACTIVITY RECOMMENDATIONS: SELF CARE INSTRUCTIONS AFTER THORACIC/LUMBAR FUSIONS 1. You may walk to your tolerance. It is good exercise for your legs and back. Expect some back and intermittent leg aches and pains. 2. You may perform "counter-top" level activities (make a sandwich, [place] with a project, etc.). 3. No bending or lifting of more than 10 pounds or back twisting of any nature (roll like a log when turning in bed). 4. You may ride in a car for 20-30 minutes at a time. No driving until after your first visit with your doctor. 5. Frequent changes of position and restricting sitting to 30 minutes at a time will help limit the amount of back spasms and stiffness you may experience. 6. You may discontinue the use of ambulatory aids (cane, crutches, etc.) once your strength and confidence allow. 7. You may highway painter helper the shower and let water strike your incision when you arrive home at least once daily. Do not take a tub bath, sit in a hot tub or go into a swimming pool until after your first recheck in the office. 8. You may resume previous diet. SPECIAL CARE INSTRUCTIONS: VERY IMPORTANT TO READ AND REVIEW A. Your surgical incision has been closed with a cosmetic suture under the skin that will dissolve in about 6 weeks. In 14 days, you can use a pair of clean scissors and cut the suture that is left outside of the skin at the ends of your incision. 1. The small skin tapes can be removed 7 days after surgery if they have not fallen off by that point. 2. You may keep the wound open to air as much as possible to promote healing after post-op day number 5 unless told otherwise by your doctor. 3. If you think the wound looks like it is becoming infected (redness or worsening drainage) and/or you are experiencing fever, chill or worsening back pain and muscle spasms, contact the office so that we may evaluate you as soon as possible. B. Complications are uncommon, but please contact us if you have any signs or symptoms of: 1. wound infection (fever higher than 102.5 degrees F, redness, separation of wound, drainage, or increasing pain from the incision) 2. blood clots in legs (pain, swelling, redness and warmth in legs) 3. urinary tract infection (fever higher than 102.5 degrees F, burning upon urination or increased frequency of urination) 4. nerve problems (inability to walk on your toes or heels, numbness, loss of bowel or bladder control) 5. any other symptoms that concern you C. Please call the office at if you have any concerns or questions about your operation or recovery. D. No smoking! Smoking drastically decreases the chance of a solid fusion. E. Do not take any anti-inflammatory medications (Indocin, Advil, Motrin, Aspir in, Naprosyn, etc.) as these may inhibit the chance of a solid fusion. Tylenol is okay to take for pain. MANAGING PAIN AFTER SPINAL SURGERY 1. Narcotic medication is intended for short-term use and will be provided for surgical pain. Surgical pain usually lasts for a period of 4-6 weeks. Narcotic medication includes Percocet, Vicodin, Darvocet, Tylenol #3 or Lortab. 2. Longer-term pain is more appropriately treated with non-narcotic medication such as Tylenol ES. 3. Muscle spasm is not appropriately treated with narcotics. Muscle relaxers such as Soma, Flexeril or Skelaxin can be used along with Tylenol ES. 4. Remember that we all live with some "aches and pains". This is not unusual or uncommon after an injury or as we get older. a. Back pain is expected and may include muscle spasms for 4 to 6 weeks after surgery. The pain should gradually improve. If the pain worsens for no apparent reason, please contact the office. b. Intermittent leg pain may also be experienced and should not be concerned about unless it worsens for no apparent reason. If so, please contact the office. 5. We will provide appropriate medication within the normal guidelines of their prescribed use. We will also be very cautious and aware of potential abuse and extended duration of patients' medication needs. a. Pain medications are for your comfort and to assist with sleep and rest so that the tissue can heal. They are not provided in order to return to normal activity and should not be used through the day. To do so or worsening pain at night can result from ongoing tissue damage and development of tolerance to the prescribed medicine. 6. Please allow 2-3 days to process refills. Prescriptions will not be mailed but must be picked up at the office. FOLLOW UP VISIT: Keep your scheduled follow-up appointment. Any questions, please call the office at . Pending Studies at Discharge: No Stand-Alone Forms: [employer], Smoking Cessation Medications and DC Order Prescriptions: New oxycodone 5 mg tablet 5 mg PO Q6H PRN (Reason: pain) Qty: 30 0RF Continued atorvastatin 40 mg tablet 40 mg PO QAM Qty: 90 3RF lorazepam [Ativan] 0.5 mg tablet 0.5 mg PO Q8H PRN (Reason: anxiety) Qty: 30 0RF famotidine 20 mg tablet 20 mg PO QAM Qty: 90 3RF nitroglycerin 0.4 mg tablet, sublingual 0.4 mg SL Q5M PRN (Reason: chest pain) Qty: 20 0RF Rx Instructions: until response; do not exceed 3 doses per episode isosorbide mononitrate 30 mg tablet extended release 24 hr 30 mg PO QAM Qty: 90 3RF medical marijuana 1 dose PO DAILY cholecalciferol (vitamin D3) 2,000 unit tablet 2,000 unit PO QAM (DME) Scooter Misc See Rx Instructions .Route Qty: 1 0RF Rx Instructions: electric mobility scooter aspirin [Mela Low Dose Aspirin] 81 mg Tablet,Delayed Release (Dr/Ec) 81 mg PO QAM sertraline 100 mg tablet 100 mg PO QAM fluticasone propionate 50 mcg/actuation spray,suspension 2 spray intranasal DAILY PRN (Reason: allergies) Rx Instructions: administer into each nostril Cbd Vape 1 unit 1 unit inhalation UD PRN (Reason: quit smoking) No Action amlodipine 5 mg tablet 5 mg PO QAM Qty: 90 3RF Discharge Orders: Discharge Order (Routine); Ordered 01/31/25 Ordered By: Luis Hogan Admission Data Admit Date/Time: 01/28/25 11:34 Attending Provider: Luis Hogan Admit Provider: Luis Hogan Primary Care Provider: Zulema Cobos Other Providers: Tod Crespo; Serenity Robles; Lul Baez; Josafat Carrero; Javi Cunningham; Jim Ibanez; Sasha Sheffield; Luisa Javier; Jigna Long; Juanis Velazco; Landon Fishman; Felicia Garcia; Karlos Lou; Lul Moran; Junior Evans; Marcelo Alcala; Andreia Narayan; Aleisha Kaufman; Celena Quiros; Sammy White; Esperanza Reeves; Dk Shearer; J Luis Malik; Angelica Blanco; Aislinn Harry; Josesito Hwang; Roxanna Mckeon; Javi Vick; Magali Gomez; Myah Dang; Yoselyn Viveros; Ruy Reyes; Mark Wall; Perla Miller; Malachi Rob; Fany Meyer; Jovan Marquis; Taisha Graf; Benton Hernández; Alessandra Key; Duglas Pritchard; Jocelyn Burger; [facility]
== END 2025-01-31 13:14 | disposition home health service (06) | DRG 402 ==
LOC: ASU 07:59 → PACUINP 11:34 → 3W 14:28

== ENCOUNTER 2025-06-10 13:34 | Observation (INO) ==
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
[2025-06-10] MEDS: ACETAMINOPHEN 1,000 MG/100 ML VIAL IV STA (14:18)
[2025-06-10] MEDS: ONDANSETRON INJ 2 MG/ML 2 ML VIAL IV STA (14:18)
[2025-06-10] MEDS: SODIUM CHLORIDE 0.9% 1,000 ML IV ONE (14:19)
[2025-06-10 14:30] LABS: Hematocrit (blood only) 47.9 % (37.0-47.0); Hemoglobin 16.0 g/dl (12.0-16.0); Immature Granulocytes # (auto) 0.04 K/uL (0.01-0.20); Immature Granulocytes % (auto) 0.4 %; Mean Corpuscular Hemoglobin 29.4 pg (25.0-34.0); Mean Corpuscular Volume 87.9 fL (80.0-100.0); Platelet Count 268 K/uL (130-400); RDW Standard Deviation 43.5 fL (36.4-46.3); Red Blood Count 5.45 M/uL (4.20-5.40); White Blood Count 10.74 K/ul (4.8-10.8)
--- NOTE | 2025-06-10 14:42 | XRay Report ---
XR chest 1V portable CLINICAL HISTORY: sick COMPARISON STUDY: 01/07/2025 FINDINGS: Heart size and pulmonary vasculature are normal. No consolidation or pleural effusion. No p neumothorax. IMPRESSION: No acute findings. ACT 112: Negative or not required by law. Electronically signed by: Diony Teague M.D. 06/10/2025 2:41 PM
[2025-06-10 15:08] LABS: Alanine Aminotransferase 14 U/L (7-52); Bilirubin,Total 1.1 mg/dl (0.2-1.0); Blood Urea Nitrogen 9 mg/dl (6-23); Calcium 9.8 mg/dl (8.6-10.3); Carbon Dioxide 26 mmol/L (21-32); Chloride 105 mmol/L (98-107); Creatinine Clr Calc Pharmacy 75.6 ml/min; Glucose 113 mg/dl (70-99(Fasting)); Total Protein 7.8 gm/dl (6.0-8.3)
[2025-06-10 15:26] LABS: Chlamydia pneumoniae PCR Not Detected (NotDetected); Coronavirus 229E PCR Not Detected (NotDetected); Coronavirus CoV-2 (COVID19)PCR Not Detected (NotDetected); Coronavirus HKU1 PCR Not Detected (NotDetected); Coronavirus NL63 PCR Not Detected (NotDetected); Coronavirus OC43PCR Not Detected (NotDetected); Human Metapneumovirus PCR Not Detected (NotDetected); Parainfluenza Virus 1 PCR Not Detected (NotDetected); Parainfluenza Virus 2 PCR Not Detected (NotDetected); Parainfluenza Virus 3 PCR Not Detected (NotDetected); Parainfluenza Virus 4 PCR Not Detected (NotDetected); Respiratory Syncytial VirusPCR Not Detected (NotDetected); Rhinovirus/Enterovirus PCR Not Detected (NotDetected)
[2025-06-10] MEDS: OPTIRAY 320 100ml IV ONE (15:42)
[2025-06-10 15:50] LABS: Alkaline Phosphatase 106.0 U/L (34-104); Potassium 3.4 mmol/L (3.5-5.1); Sodium 142.0 mmol/L (136-145)
--- NOTE | 2025-06-10 16:02 | CT Scan Report ---
CHEST CT WITH CONTRAST CT DOSE: 764.52 mGy.cm HISTORY: illness TECHNIQUE: Multiaxial CT images of the chest were performed following the IV administration of 90 cc of Optiray. A dose lowering technique was utilized adhering to the principles of ALARA. COMPARISON STUDY: 03/06/2019 FINDINGS: There is increased mild reticular and patchy groundglass opacity in the posterior lung base s which could represent early pneumonia or atelectasis. There is no lobar consolidation or pleural ef fusion. No pneumothorax. There is a calcified pulmonary granuloma anterior medial right upper lobe. T here are a few stable scattered small pulmonary nodules, largest anterior right upper lobe measures 6 mm greatest dimension. No interval significant pulmonary nodule seen. Stable multiple tiny thyroid n odules. No enlarged adenopathy seen. No pericardial effusion. There are diffuse coronary artery calci fications. No acute osseous findings. IMPRESSION: 1. Early pneumonia versus atelectasis in the lung bases. 2. No other acute findings seen. ACT 112: Negative or not required by law. Electronically signed by: Diony Teague M.D. 06/10/2025 4:00 PM
[2025-06-10] MEDS: cefTRIAXone SODIUM 2,000 MG/50 ML BAG IV STA (17:44)
[2025-06-10] MEDS: AZITHROMYCIN 250 MG TAB PO ONE (17:44)
--- NOTE | 2025-06-10 18:11 | History & Physical Report ---
Date of Service June 10, 2025 Assessment & Plan (1) Viral illness: Plan: Supportive care. Parenteral steroid therapy. IV fluids. (2) Essential hypertension: Plan: Stable. Continue current medical management (3) GERD (gastroesophageal reflux disease): Plan: PPI or H2 therapy. Stable (4) Coronary artery disease: Plan: Stable. Continue current medical management Plan Anticipate discharge back to home in a day or 2 when she is feeling better History of Present Illness Chief Complaint: Sweats, malaise, weakness Primary Care Provider: Zulema Cobos MD 64-year-old white female with sudden onset of viral symptoms with sweats, flushing, malaise. Procalcitonin level is normal. White blood cell count is normal. Chest x-ray negative. She was evaluated in the ED and appears to have a viral illness. We discussed treatment with parenteral steroid therapy and she is agreeable. She does not have a true allergy to methylprednisolone but only side effects which are not serious. She is placed in observation status for further evaluation. Allergies Allergy/AdvReac Type Severity Reaction Status Date / Time tramadol Allergy Intermediate HIVES Verified 06/10/25 18:03 methylprednisolone AdvReac Severe Verified 06/10/25 18:03 [From Solu-Medrol] gabapentin AdvReac Intermediate VERTIGO Verified 06/10/25 18:03 pregabalin AdvReac Intermediate "FELT LIKE Verified 06/10/25 18:03 A CECIL" Home Medications Medication Instructions Recorded Confirmed Type aspirin 81 mg tablet,delayed 81 mg PO QAM 02/09/19 06/10/25 History release (Mela Low Dose Aspirin) cholecalciferol (vitamin D3) 50 2,000 unit PO QAM 03/12/19 06/10/25 History mcg (2,000 unit) tablet medical marijuana 1 dose PO DAILY 09/11/21 06/10/25 History Scooter #1 ea 07/30/24 06/10/25 Rx nitroglycerin 0.4 mg sublingual 0.4 mg sublingual Q5M PRN chest 09/13/24 06/10/25 Rx tablet pain #20 tabs fluticasone propionate 50 2 spray intranasal DAILY PRN 12/31/24 06/10/25 History mcg/actuation nasal allergies spray,suspension isosorbide mononitrate 30 mg 30 mg PO QAM #90 tabs 01/25/25 06/10/25 Rx tablet,extended release 24 hr amlodipine 5 mg tablet 5 mg PO QAM #90 tabs 02/02/25 06/10/25 Rx sertraline 100 mg tablet 150 mg (1.5 x 100 mg) PO DAILY #45 04/27/25 06/10/25 Rx tabs atorvastatin 40 mg tablet 40 mg PO DAILY #90 tabs 06/02/25 06/10/25 Rx ondansetron HCl 4 mg tablet 4 mg PO QID PRN nausea and 06/02/25 06/10/25 Rx vomiting #60 tabs oxycodone 20 mg tablet 20 mg PO TID PRN pain #90 tabs 06/02/25 06/10/25 Rx methocarbamol 500 mg tablet 500 mg PO Q8H 06/10/25 06/10/25 History Past Med/Surg History Problem List (Updated 06/10/25 @ 18:10 by Josafat Carrero MD) Coronary artery disease GERD (gastroesophageal reflux disease) Essential hypertension Viral illness Degenerative disc disease, cervical (Acute) Chronic radicular lumbar pain (Acute) 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 Mild CAD Eye swelling, right Impaired mobility and ADLs Encounter for mastoidectomy cavity debridement Rupture of left proximal hamstring tendon Lipoma Hamstring tendinitis Lumbar radiculopathy Right elbow pain Chronic SI joint pain Ischial bursitis Sciatica Perforation of ear drum Jaw pain Chronic otitis media of left ear with perforated tympanic membrane DM2 (diabetes mellitus, type 2) Right low back pain Hypertrophy of both inferior nasal turbinates Encounter for pre-operative examination Deviated septum Vertigo Spondyloarthropathy Hematuria Hip pain History of mastoidectomy Bilateral buttock pain Mixed conductive and sensorineural hearing loss of left ear with restricted hearing of right ear Urinary symptom or sign Right wrist pain Left foot pain Abdominal pain Stomach ulcer Mastoiditis of left side Rib pain Non-healing skin lesion Injury of left foot Cyst of left breast S/P excision of lipoma (09/10/19) Right Flank Lipoma Excision Dr. Rodriguez 09/10/19 Soft tissue mass Anxiety (Chronic) Muscle strain (Acute) Acid reflux disease (Chronic) CAD (coronary artery disease), [place] coronary artery (Chronic) Hyperlipidemia (Acute) Hypertension (Chronic) Nausea and vomiting (Acute) Takotsubo cardiomyopathy (Acute) NSTEMI (non-ST elevated myocardial infarction) Flank pain (Acute) Fibromyalgia (Acute) Medical History Cyst of eye Hx of gastric ulcer History of COVID-19 (09/2023) Ambulatory dysfunction Chronic SI joint pain Acid reflux disease Ankylosing spondylitis Lumbar radiculopathy HLD (hyperlipidemia) Fibromyalgia Deviated septum DM2 (diabetes mellitus, type 2) CAD (coronary artery disease) History of non-ST elevation myocardial infarction (NSTEMI) (2018) PONV (postoperative nausea and vomiting) Medical marijuana use Restless leg syndrome Finding of floating rib Degenerative disc disease Spinal stenosis Osteoarthritis Melanoma Depression with anxiety PVD (peripheral vascular disease) Takotsubo cardiomyopathy Hypertension Surgical History Hx of mastoidectomy History of colonoscopy with polypectomy S/P excision of lipoma Hx of breast reduction, elective History of lumbar surgery (1987) History of esophagogastroduodenoscopy (EGD) History of tooth extraction History of ear surgery History of myringotomy History of cardiac cath (2018) Family History Father Cancer Stroke Brother Schizophrenia Other No family history of adverse response to anesthesia No family history of bleeding disorder Denies family history of Ovarian cancer Prostate cancer Myocardial infarction Breast cancer Colorectal cancer Social History Smoking Status: Current every day smoker Tobacco Type: Cigarettes Age Started Using Tobacco: 15; packs per day: 0.5; Cigarettes Per Day: 10 CIG DAILY/Vapes weekly; Second Hand Exposure: No; Do You Dip or Chew Tobacco: No; Hx Alcohol Use: Yes Alcohol type: beer Hx Substance Use: Yes Last Used Substance: Hours (ago) Last Used Substance Other:: medical marijuana daily (Advised) Preferred Language: Korean Communication Ability: Effective Communication Ability Comment: drowsy Fish Cutter Required: No Beliefs That Will Affect Care: None marital status: Current Living Situation: Alone current occupational status: unemployed and disabled How many Children do You have: 1 Feels Safe at Home: Yes Childhood Exposure to Second-Hand Smoke: Yes Diet: regular caffeine: Yes Dental Care, Regularly: No Physical Activity Frequency: 1-2 Times per Week Seatbelt Use: always Sunscreen Use: No Assistive Devices: Walker Review of Systems 2 Review of Systems: Constitutionalno fever or chills ENTno blurred vision, no double vision, no epistaxis, no sore throat Respiratoryno cough, no wheezing, no shortness of breath Cardiacno palpitations, no chest pain, no syncope Antonella nausea, vomiting, diarrhea, melena, hematochezia GUno urinary retention, no urinary incontinence, no dysuria, no hematuria Musculoskeletalno joint pain, no muscle tenderness Skinno bruising, no rashes, no pruritus Neurono isolated weakness, no paresthesia, no weakness Psychno depression, no anxiety Physical Exam 2 Physical Exam: General-alert and oriented x3, no fever, no chills HEENT-head atraumatic and normocephalic, pupils equal and reactive to light, extraocular muscles intact Neck-no lymphadenopathy or thyromegaly, trachea midline Chest-midline rhonchi. No wheezing. No inspiratory rales. Cardiac-regular rate and rhythm, normal S1 and S2 Abdomen-normal bowel sounds, no hepatosplenomegaly Skinfacial flushing noted Extremities-no cyanosis, clubbing, or edema Neuro-cranial nerves II through XII intact, motor and sensory function within normal limits, strength symmetrical, no focal deficits Psych-normal affect, normal mood Results & Data Results & Data Vital Signs (Past 12 Hours) Vital Signs Temp Pulse Pulse Resp BP BP Pulse Ox 06/10/25 17:22 72 20 134/66 92 06/10/25 16:06 70 13 151/71 H 97 06/10/25 15:00 74 16 132/72 97 06/10/25 14:58 72 95 06/10/25 14:20 74 06/10/25 14:19 73 17 105/87 100 06/10/25 13:36 36.7 C 77 20 135/84 99 O2 Del Method O2 Flow Rate 06/10/25 17:22 Room Air 06/10/25 16:06 Room Air 06/10/25 15:00 Room Air 06/10/25 14:58 Nasal Cannula 2 06/10/25 14:20 06/10/25 14:19 Room Air 06/10/25 13:36 Room Air Laboratory Results 06/10/25 14:15 06/10/25 15:15 Code Status & VTE Plan Code Status Full code PG Care Time/CCT Total # of Minutes Spent Total Time Spent with Patient: Total time spent is greater than 50% in coordination of care (as documented) at patient's floor/unit and/or counseling patient: Coding Level of Care Code 26719 INT INP/OBS CARE 3/75MIN Diagnoses Viral illness B34.9 Essential hypertension I10 GERD (gastroesophageal reflux disease) K21.9 Coronary artery disease I25.10
--- NOTE | 2025-06-10 21:11 | Electrocardiogram Report ---
Test Reason : Blood Pressure : */* mmHG Vent. Rate : 68 BPM Atrial Rate : 68 BPM P-R Int : 162 ms QRS Dur : 88 ms QT Int : 448 ms P-R-T Axes : 57 -20 49 degrees QTcB Int : 476 ms Normal sinus rhythm Normal ECG When compared with ECG of 07-Jan-2025 12:53, No significant change was found Confirmed by Aly Rogers ([id number]) on 06/10/2025 9:11:10 PM Referred By: REFERRED SELF Confirmed By: Aly Rogers
[2025-06-10] MEDS ORDERED: NITROGLYCERIN SL 0.4 MG/TAB TAB SL PRN (21:16)
[2025-06-10] MEDS ORDERED: ONDANSETRON INJ 2 MG/ML 2 ML VIAL IV PRN (21:16)
[2025-06-10] MEDS ORDERED: methylPREDNISolone 10 mg/mL (For Ped Dose < 7mg) IV SCH (21:16)
[2025-06-10] MEDS ORDERED: ACETAMINOPHEN 1,000 MG/100 ML VIAL IV PRN (21:16)
[2025-06-10] MEDS: SODIUM CHLORIDE 0.9% 1,000 ML IV SCH (21:55)
[2025-06-10] MEDS: ALBUT/IPRATROP 3MG/0.5MG NEB 3 ML VIAL NEB SCH (22:53)
[2025-06-11] MEDS: LORazepam 0.5 MG TAB PO STA ×2 (00:04→11:54)
[2025-06-11 00:06] VITALS: TEMP 98.1
[2025-06-11 06:31] LABS: Hematocrit (blood only) 43.9 % (37.0-47.0); Hemoglobin 14.7 g/dl (12.0-16.0); Immature Granulocytes # (auto) 0.03 K/uL (0.01-0.20); Immature Granulocytes % (auto) 0.4 %; Mean Corpuscular Hemoglobin 29.8 pg (25.0-34.0); Mean Corpuscular Volume 89.0 fL (80.0-100.0); Platelet Count 245 K/uL (130-400); RDW Standard Deviation 44.3 fL (36.4-46.3); Red Blood Count 4.93 M/uL (4.20-5.40); White Blood Count 7.93 K/ul (4.8-10.8)
[2025-06-11 07:23] LABS: Anion Gap 7.0 (3-11); Blood Urea Nitrogen 9.0 mg/dl (6-23); Calcium 9.0 mg/dl (8.6-10.3); Carbon Dioxide 26.0 mmol/L (21-32); Chloride 109.0 mmol/L (98-107); Creatinine Clr Calc Pharmacy 76.4 ml/min; Glucose 148.0 mg/dl (70-99(Fasting)); Potassium 3.6 mmol/L (3.5-5.1); Sodium 142.0 mmol/L (136-145)
[2025-06-11 07:52] VITALS: BP 146/75
[2025-06-11] MEDS: ASPIRIN 81 MG ECTAB PO SCH (09:56)
[2025-06-11] MEDS: ATORVASTATIN 40 MG TAB PO SCH (09:56)
[2025-06-11] MEDS: CHOLECALCIFEROL 25 MCG (1000 UNITS) TAB PO SCH (09:56)
[2025-06-11] MEDS: ISOSORBIDE MONO EXTENDED REL 30 MG TABCR PO SCH (09:57)
[2025-06-11] MEDS: SERTRALINE HCL 50 MG TABLET PO SCH (09:57)
[2025-06-11 10:19] VITALS: PULSE 74; RESP 16; O2SAT 95
--- NOTE | 2025-06-11 11:40 | Discharge Summary ---
Discharge Summary Date of Service June 11, 2025 Principal Dx & Hospital Course #1 = Principal Diagnosis (1) Viral illness: Supportive care. Treated while hospitalized with parenteral steroid therapy and IV fluids. She is doing much better and will be discharged home today, June 11, on a tapering dose of oral prednisone (2) Essential hypertension: Stable. Continue current medical management (3) GERD (gastroesophageal reflux disease): PPI or H2 therapy. Stable (4) Coronary artery disease: Stable. Continue current medical management Plan Home today, June 11, on a tapering dose of prednisone. Follow-up with primary care provider as soon as possible. Admission HPI Per Admitting Provider 64-year-old white female with sudden onset of viral symptoms with sweats, flushing, malaise. Procalcitonin level is normal. White blood cell count is normal. Chest x-ray negative. She was evaluated in the ED and appears to have a viral illness. We discussed treatment with parenteral steroid therapy and she is agreeable. She does not have a true allergy to methylprednisolone but only side effects which are not serious. She is placed in observation status for further evaluation. Discharge Exam General-alert and oriented x3, no fever, no chills HEENT-head atraumatic and normocephalic, pupils equal and reactive to light, extraocular muscles intact Neck-no lymphadenopathy or thyromegaly, trachea midline Chest-midline rhonchi. No wheezing. No inspiratory rales. Cardiac-regular rate and rhythm, normal S1 and S2 Abdomen-normal bowel sounds, no hepatosplenomegaly Skinfacial flushing present on admission has now resolved Extremities-no cyanosis, clubbing, or edema Neuro-cranial nerves II through XII intact, motor and sensory function within normal limits, strength symmetrical, no focal deficits Psych-normal affect, normal mood Discharge Plan Discharge Items Patient Disposition: Home - Self-Care Reason For Visit: VIRAL ILLNESS Discharge Diagnosis: Viral illness Activity: Resume your previous activity Non-emergency contact: Primary Care Provider Call non-emergency contact if: your symptoms worsen Follow-up/Referrals: Zulema Cobos MD [Primary Care Provider] - Diet: Regular Addtl Attending Provider Instructions: Take prednisone in a tapering dose fashion as directed. A prescription has been sent to [facility] pharmacy on [facility]. See your primary care provider as soon as possible for follow-up Pending Studies at Discharge: No Stand-Alone Forms: My [facility] [address], Smoking Cessation Medications and DC Order Prescriptions: New prednisone 10 mg tablet See Rx Instructions .ROUTE .COMPLEX Qty: 12 0RF Rx Instructions: 10 mg orally 3 times a day for 2 days, then 10 mg twice a day for 2 days, then 10 mg once a day for 2 days, then stop Continued nitroglycerin 0.4 mg tablet, sublingual 0.4 mg SL Q5M PRN (Reason: chest pain) Qty: 20 0RF Rx Instructions: until response; do not exceed 3 doses per episode isosorbide mononitrate 30 mg tablet extended release 24 hr 30 mg PO QAM Qty: 90 3RF amlodipine 5 mg tablet 5 mg PO QAM Qty: 90 3RF sertraline 100 mg tablet 150 mg PO DAILY Qty: 45 2RF medical marijuana 1 dose PO DAILY cholecalciferol (vitamin D3) 2,000 unit tablet 2,000 unit PO QAM Rx Instructions: otc unable to verify (DME) Scooter Misc See Rx Instructions .Route Qty: 1 0RF Rx Instructions: electric mobility scooter ondansetron HCl 4 mg tablet 4 mg PO QID PRN (Reason: nausea and vomiting) Qty: 60 0RF oxycodone 20 mg tablet 20 mg PO TID PRN (Reason: pain) Qty: 90 0RF atorvastatin 40 mg tablet 40 mg PO DAILY Qty: 90 3RF aspirin [Mela Low Dose Aspirin] 81 mg Tablet,Delayed Release (Dr/Ec) 81 mg PO QAM Rx Instructions: otc unable to verify fluticasone propionate 50 mcg/actuation spray,suspension 2 spray intranasal DAILY PRN (Reason: allergies) methocarbamol 500 mg tablet 500 mg PO Q8H Discharge Orders: Discharge Order (Routine); Ordered 06/11/25 Ordered By: Josafat Carrero Admission Data Admit Date/Time: 06/10/25 17:59 Attending Provider: Josafat Carrero Admit Provider: Josafat Carrero Primary Care Provider: Zulema Cobos Hospital Stay Data Diagnostic Imagining Performed 06/10/25 15:24 CT chest diagnostic w con Stat Pending Results Patient Have Any Pending Studies at Discharge: No Discharge Instructions Given to Patient (Per Discharging Provider) Take prednisone in a tapering dose fashion as directed. A prescription has been sent to [facility] pharmacy on [facility]. See your primary care provider as soon as possible for follow-up Total Time Total Time Spent Total Time Spent (In Minutes): 45-minute Coding Level of Care Code 83061 INP/OBS DISCH >30 MIN Diagnoses Viral illness B34.9 Essential hypertension I10 GERD (gastroesophageal reflux disease) K21.9 Coronary artery disease I25.10
== END 2025-06-11 13:10 | disposition home or self-care (01) ==
LOC: 3W 13:34 → ED 13:34 → 3W 21:04

== ENCOUNTER 2025-07-08 17:08 | Observation (INO) ==
[2025-07-08] MEDS: ALBUT/IPRATROP 3MG/0.5MG NEB 3 ML VIAL NEB STA (17:19)
[2025-07-08] MEDS: ALBUT/IPRATROP 3MG/0.5MG NEB 3 ML VIAL ONE (17:20)
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
[2025-07-08 17:33] LABS: Hematocrit (blood only) 47.3 % (37.0-47.0); Hemoglobin 15.7 g/dl (12.0-16.0); Immature Granulocytes # (auto) 0.06 K/uL (0.01-0.20); Immature Granulocytes % (auto) 0.5 %; Mean Corpuscular Hemoglobin 29.4 pg (25.0-34.0); Mean Corpuscular Volume 88.6 fL (80.0-100.0); Platelet Count 258 K/uL (130-400); RDW Standard Deviation 46.2 fL (36.4-46.3); Red Blood Count 5.34 M/uL (4.20-5.40); White Blood Count 13.18 K/ul (4.8-10.8)
[2025-07-08] MEDS: SODIUM CHLORIDE 0.9% 1,000 ML IV ONE (17:40)
--- NOTE | 2025-07-08 17:50 | XRay Report ---
EXAM: Portable AP chest radiograph TECHNIQUE: AP portable radiograph of the chest was obtained. INDICATION: Chest pain. Comparison: Chest radiograph June 24, 2025 FINDINGS: LINES and TUBES: None CARDIOVASCULAR: Cardiac silhouette is stably and mildly enlarged in size. Atherosclerosis of the thoracic aorta LUNGS/PLEURA: No focal consolidation identified. No significant pleural fluid. No discernible pneumothorax. OSSEOUS/OTHER: No displaced acute osseous process identified. IMPRESSION: No radiographic evidence of acute cardiopulmonary process with no significant change from June 24, 2025 examination. Electronically signed by Andrew Andrade 07-08-2025 5:50 PM
[2025-07-08 17:54] LABS: Alanine Aminotransferase 19.0 U/L (7-52); Albumin Globulin Ratio 1.4 (0.9-2); Alkaline Phosphatase 92.0 U/L (34-104); Anion Gap 14.0 (3-11); Bilirubin,Total 1.0 mg/dl (0.2-1.0); Blood Urea Nitrogen 8.0 mg/dl (6-23); Calcium 9.9 mg/dl (8.6-10.3); Carbon Dioxide 21.0 mmol/L (21-32); Chloride 107.0 mmol/L (98-107); Creatinine Clr Calc Pharmacy 81.6 ml/min; Globulin 3.0 gm/dl (2.5-4.0); Glucose 108.0 mg/dl (70-99(Fasting)); Lipase 17.0 U/L (11-82); Potassium 3.8 mmol/L (3.5-5.1); Sodium 142.0 mmol/L (136-145); Total Protein 7.1 gm/dl (6.0-8.3)
[2025-07-08 18:32] LABS: Influenza A virus by PCR Negative (Neg); Influenza B virus by PCR Negative (Neg); SARS CoV2 RNA(COVID-19) Ceph NEGATIVE (Negative)
--- NOTE | 2025-07-08 19:20 | CT Scan Report ---
Clinical History: Paresthesia. Technique: Axial computed tomography images were obtained of the brain from the vertex to the skull base without intravenous contrast. Findings: There is no sign of intracranial hemorrhage. There is normal degroot-white matter differentiation with no sign of acute or old infarction. No midline shift or other form of herniation is identified. There is no hydrocephalus. No obvious mass lesion is seen on this noncontrast examination. The visualized portions of the orbits and paranasal sinuses appear unremarkable. There is opacification of the left mastoid air cells and there is mild partial opacification of the right mastoid air cells Impression: 1. Normal-appearing brain 2. Mastoid air cell opacification, concerning for inflammatory mastoiditis Electronically signed by Adelfo Roque 07-08-2025 7:20 PM
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
[2025-07-08] MEDS ORDERED: DOCUSATE SODIUM 100 MG CAP PO PRN (21:23)
[2025-07-08] MEDS ORDERED: ALBUTEROL 0.083% NEBU SOLN 3 ML VIAL NEB PRN (21:23)
[2025-07-08] MEDS ORDERED: ONDANSETRON INJ 2 MG/ML 2 ML VIAL IV PRN (21:23)
[2025-07-08] MEDS: NICOTINE 21 MG/24 HR TDSY TD SCH (21:48)
[2025-07-08 22:14] LABS: Magnesium 1.9 mg/dl (1.7-2.4)
[2025-07-08] MEDS: ALBUT/IPRATROP 3MG/0.5MG NEB 3 ML VIAL NEB SCH (22:26)
[2025-07-08] MEDS ORDERED: POTASSIUM PHOS 3 MMOL/1 ML INFUSION IV STA (23:18)
[2025-07-08 23:22] VITALS: TEMP 98.4
[2025-07-09] MEDS: POTASSIUM PHOSPHATE 21 MMOL in SODIUM CHLORIDE 0.9% 500 ML IV ONE (00:35)
[2025-07-09 01:12] LABS: Appearance Urine Clear (Clear); Bacteria Urine Automated None Seen (None Seen); Cast Urine Automated 0-2 /lpf (0-2); Glucose Urine UA 3+ (Negative); WBC Urine Automated 0-5 /hpf (0-5)
[2025-07-09] MEDS: MELATONIN 3 MG TAB PO PRN (02:11)
[2025-07-09 05:02] LABS: Hematocrit (blood only) 44.0 % (37.0-47.0); Hemoglobin 15.1 g/dl (12.0-16.0); Mean Corpuscular Hemoglobin 30.8 pg (25.0-34.0); Mean Corpuscular Volume 89.8 fL (80.0-100.0); Platelet Count 240 K/uL (130-400); RDW Standard Deviation 48.0 fL (36.4-46.3); Red Blood Count 4.90 M/uL (4.20-5.40); White Blood Count 11.54 K/ul (4.8-10.8)
[2025-07-09 05:31] LABS: Alanine Aminotransferase 18.0 U/L (7-52); Alkaline Phosphatase 85.0 U/L (34-104); Anion Gap 14.0 (3-11); Bilirubin,Total 0.5 mg/dl (0.2-1.0); Blood Urea Nitrogen 12.0 mg/dl (6-23); Calcium 9.5 mg/dl (8.6-10.3); Carbon Dioxide 20.0 mmol/L (21-32); Chloride 107.0 mmol/L (98-107); Creatinine Clr Calc Pharmacy 72.5 ml/min; Glucose 190.0 mg/dl (70-99(Fasting)); Potassium 3.4 mmol/L (3.5-5.1); Sodium 141.0 mmol/L (136-145); Total Protein 6.8 gm/dl (6.0-8.3)
[2025-07-09] MEDS: ACETAMINOPHEN 325 MG TAB PO PRN (05:36)
[2025-07-09 08:54] VITALS: BP 155/70; PULSE 103; RESP 20; O2SAT 97
[2025-07-09] MEDS: POTASSIUM CHLORIDE CRTAB 20 MEQ TABCR PO STA (10:01)
[2025-07-09] MEDS: SERTRALINE HCL 50 MG TABLET PO SCH (10:01)
[2025-07-09] MEDS: ATORVASTATIN 40 MG TAB PO SCH (10:02)
[2025-07-09] MEDS: REMOVE NICODERM PATCH SCH (10:02)
[2025-07-09] MEDS: ASPIRIN 81 MG ECTAB PO SCH (10:02)
[2025-07-09] MEDS: ISOSORBIDE MONO EXTENDED REL 30 MG TABCR PO SCH (10:02)
--- NOTE | 2025-07-09 11:28 | Discharge Summary ---
Discharge Summary Date of Service July 09, 2025 Principal Dx & Hospital Course #1 = Principal Diagnosis (1) Acute hypoxic respiratory failure: (2) URI (upper respiratory infection): (3) Hypertension: (4) Hyperlipidemia: (5) CAD (coronary artery disease), qawalangin coronary artery: (6) GERD (gastroesophageal reflux disease): (7) DM2 (diabetes mellitus, type 2): Plan 64yo female with history of HTN, HLP, CAD, DM presenting with two days of generalized weakness, fatigue and poor oral intake. Patient with episode of hypoxia on arrival, 86% on room air. She does not use supplemental O2 at home. No known lung disease. #Acute hypoxic respiratory failure/URI - possible viral URI. Her screen for Flu/RSV/Covid is NEGATIVE. CXR with no infiltrate. Patient reportedly wheezing diffusely per EMS and on arrival to ER. She was administered DuoNeb, Solumedrol as well as Albuterol neb. During my exam just with few scattered wheezing. Question undiagnosed reactive airway disease or COPD? Patient continues to smoke -Admit to medical -Continue supplemental O2 as needed -DuoNebs q 4 hours -Albuterol PRN -Smoking cessation counseling -Patient would benefit from outpatient Pulmonary evaluation and formal LFTs #Hypophosphatemia - PO4=1.9 -KPhos x 21mmol ordered -Repeat PO4 level in AM #Hypertension - blood pressure adequately controlled at present -Continue Amlodipine 5mg po qAM #CAD -Continue ASA 81mg po daily -Continue Atorvastatin 40mg po daily -Continue Isosorbide #Active tobacco use -Smoking cessation counseling -Nicotine patch #Chronic pain -Continue Oxycodone 20mg po TID PRN - PDMP independently reviewed. #Depression/Mental Health -Continue Sertraline 150mg po daily Patient's symptoms have resolved and she is no longer requiring oxygen with a pulse ox of 97% on room air. She has no wheezing with good air exchange. At this time, she is medically and hemodynamically stable for discharge. Advised tobacco and marijuana smoking cessation. Also discussed close f/u with pcp to discuss/set up PFTs. She will be discharged with an albuterol inhaler to use as needed. Admission HPI Per Admitting Provider Chelsea Sheppard is a 64yo female with history of HTN, HLP, DM, ongoing tobacco use presenting from home with complaint of feeling "crappy" over the last two days. Yesterday 07/07/25, patient began feeling tired, fatigued, poor appetite with decreased oral intake. She laid in bed all day and didn't eat much. This morning 07/08 around 03:00 she developed chills, sweats and mild shortness of breath as well as some nausea. She reports decreased urine output over the last several days but no dysuria/frequency/urgency. Patient with recent viral URI. She was managed with a steroid taper which she completed on 07/06. In the ER patient afebrile, HD stable with mild hypertension. Hypoxic on room air at 86% ER Course: EMS: Solumedrol 125mg IV + DuoNeb ER: Patient noted to have diffuse wheezing bilaterally Albuterol 6mL neb + 3mL neb NSS x 1L Nicotine patch Discharge Exam GENERAL: 64 yo Well-developed, well-nourished WF. NAD. LUNGS: Clear to auscultation bilaterally. Nonlabored. CTA CARDIOVASCULAR: Regular rate and rhythm EXTREMITIES: No edema. Non-tender. Peripheral pulses +2/4. NEUROLOGIC: A&O x3. PSYCHIATRIC: Cooperative. Appropriate mood and affect. SKIN: Warm, dry, intact. No rashes or lesions. Discharge Plan Discharge Items Patient Disposition: Home - Self-Care Reason For Visit: COUGH, HYPOXIA Discharge Diagnosis: Cough, low oxygen Condition on Discharge: Good Activity: Resume your previous activity Non-emergency contact: Primary Care Provider Call non-emergency contact if: you have any medication questions and your symptoms worsen Follow-up/Referrals: Zulema Cobos MD [Primary Care Provider] - Diet: Regular Addtl Attending Provider Instructions: You were hospitalized due to low oxygen levels. Your symptoms have resolved and you are no longer requiring oxygen. It has been discussed that you may have underlying lung disease and will need to have lung function testing done. This can be arranged by your primary care provider. I recommend contacting her on Friday to discuss follow up appointment which is advised to be done within 1 week of discharge or sooner if needed and to set up pulmonary function tests. This will determine if any other steps are necessary to reduce the risk of further episodes of this in the future. Additionally, it has been discussed that you need to stop smoking as this will only contribute to worsening lung function. I would also discuss changing from medical marijuana in the form of smoking to another alternative to again preserve lung function. You are being sent home with an albuterol inhaler in the event that you have any episodes of shortness of breath or wheezing, you can use this inhaler to rapidly open up your airways. This has been sent to [facility] on [facility]. In the even of a medical emergency, call 911 or go to the ER. Pending Studies at Discharge: No Stand-Alone Forms: [facility], Smoking Cessation Medications and DC Order Prescriptions: New albuterol sulfate 90 mcg/actuation HFA aerosol inhaler 2 inh inhalation Q4H PRN (Reason: shortness of breath or wheezing) Qty: 6.7 0RF Continued nitroglycerin 0.4 mg tablet, sublingual 0.4 mg SL Q5M PRN (Reason: chest pain) Qty: 20 0RF Rx Instructions: until response; do not exceed 3 doses per episode isosorbide mononitrate 30 mg tablet extended release 24 hr 30 mg PO QAM Qty: 90 3RF amlodipine 5 mg tablet 5 mg PO QAM Qty: 90 3RF sertraline 100 mg tablet 150 mg PO DAILY Qty: 45 2RF medical marijuana 1 dose PO DAILY cholecalciferol (vitamin D3) 2,000 unit tablet 2,000 unit PO QAM Rx Instructions: otc unable to verify (DME) Scooter Misc See Rx Instructions .Route Qty: 1 0RF Rx Instructions: electric mobility scooter ondansetron HCl 4 mg tablet 4 mg PO QID PRN (Reason: nausea and vomiting) Qty: 60 0RF oxycodone 20 mg tablet 20 mg PO TID PRN (Reason: pain) Qty: 90 0RF atorvastatin 40 mg tablet 40 mg PO DAILY Qty: 90 3RF aspirin [Mela Low Dose Aspirin] 81 mg Tablet,Delayed Release (Dr/Ec) 81 mg PO QAM Rx Instructions: otc unable to verify fluticasone propionate 50 mcg/actuation spray,suspension 2 spray intranasal DAILY PRN (Reason: allergies) methocarbamol 500 mg tablet 500 mg PO Q8H PRN (Reason: MUSCLE SPASMS) Discharge Orders: Discharge Order (Routine); Ordered 07/09/25 Ordered By: Esperanza Reeves Admission Data Admit Date/Time: 09/19/25 19:56 Attending Provider: Andreia Narayan Admit Provider: Jigna Long Primary Care Provider: Zulema Cobos Other Providers: Jigna Long Hospital Stay Data Consultations 07/08/25 19:23 ED Decision to Admit Stat Diagnostic Imagining Performed 07/08/25 17:16 CT head/brain wo con Stat Pending Results Patient Have Any Pending Studies at Discharge: No Discharge Instructions Given to Patient (Per Discharging Provider) You were hospitalized due to low oxygen levels. Your symptoms have resolved and you are no longer requiring oxygen. It has been discussed that you may have underlying lung disease and will need to have lung function testing done. This can be arranged by your primary care provider. I recommend contacting her on Friday to discuss follow up appointment which is advised to be done within 1 week of discharge or sooner if needed and to set up pulmonary function tests. This will determine if any other steps are necessary to reduce the risk of further episodes of this in the future. Additionally, it has been discussed that you need to stop smoking as this will only contribute to worsening lung function. I would also discuss changing from medical marijuana in the form of smoking to another alternative to again preserve lung function. You are being sent home with an albuterol inhaler in the event that you have any episodes of shortness of breath or wheezing, you can use this inhaler to rapidly open up your airways. This has been sent to [facility] on [facility]. In the even of a medical emergency, call 911 or go to the ER. Total Time Total Time Spent Total Time Spent (In Minutes): 35 minutes Coding Level of Care Code 10555 INP/OBS DISCH >30 MIN Diagnoses Acute hypoxic respiratory failure J96.01 URI (upper respiratory infection) J06.9 URI type: unspecified URI Primary hypertension I10 Hypertension type: primary hypertension Mixed hyperlipidemia E78.2 Hyperlipidemia type: mixed hyperlipidemia Coronary artery disease involving qawalangin coronary artery of qawal[place]in heart without angina pectoris I25.10 [place] vs. transplanted heart: q[place] heart Associated angina: without angina GERD (gastroesophageal reflux disease) K21.9 Type 2 diabetes mellitus without complication, without long-term current use of insulin E11.9 Diabetes mellitus manager intermediate insulin use: without manager intermediate use Diabetes mellitus complication status: without complication
--- NOTE | 2025-07-09 11:53 | Electrocardiogram Report ---
Test Reason : Blood Pressure : */* mmHG Vent. Rate : 70 BPM Atrial Rate : 70 BPM P-R Int : 144 ms QRS Dur : 88 ms QT Int : 446 ms P-R-T Axes : 49 -24 46 degrees QTcB Int : 481 ms Normal sinus rhythm Left atrial enlargement Normal ECG When compared with ECG of 10-Jun-2025 15:52, No significant change was found Confirmed by Malena Ragland (Matt) on 07/09/2025 11:52:37 AM Referred By: Confirmed By: Malena Ragland
== END 2025-07-09 13:10 | disposition home or self-care (01) ==
LOC: ED 17:08 → EDINP 17:08 → SUATTDRO 19:56 → 3E 21:23